=== PATIENT | female | born 1940 | race Hispanic/Latino ===

== ENCOUNTER 2018-03-19 17:22 | Inpatient (IN) | payer MEDICARE, OTHER ==
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
[2018-03-19 18:58] LABS: ALB/GLOB RATIO 1.4 (1.1-1.8); ALBUMIN 4.9 g/dL (3.0-4.8); ALT/SGPT 48 U/L (7-56); AST/SGOT 65 U/L (14-36); BLOOD UREA NITROGEN 28 mg/dL (7-21); CALCIUM 8.8 mg/dL (8.4-10.5); GFR NON-AFRICAN AMERICAN 36
[2018-03-19 19:02] LABS: ACETAMINOPHEN < 10.0 ug/ml (10.0-20.0); SALICYLATE 3 mg/dL (2.0-20.0)
[2018-03-19] MEDS ORDERED: Sodium Chloride 0.9% 500 ML IV STA (19:09)
[2018-03-19 19:19] LABS: BASO # 0.01 K/mm3 (0.0-2.0); BASO % 0.1 % (0.0-3.0); GRAN % 90.2 % (50.0-68.0); HEMOGLOBIN 12.2 g/dL (12.0-16.0); LYMPH # 1.1 (1.2-3.4); LYMPH % 7.8 % (22.0-35.0); MEAN CORPUSCULAR HEMOGLOBIN 26.9 pg (25.0-35.0); MEAN PLATELET VOLUME 9.8 fl (7.0-11.0); MONO # 0.3 (0.1-0.6); MONO % 1.9 % (1.0-6.0); PLATELET COUNT 339 10^3/uL (120.0-450.0); RBC 4.53 10^6/uL (3.5-6.1); RED CELL DISTRIBUTION WIDTH 16.7 % (11.5-14.5); WHITE BLOOD COUNT 14.4 10^3/uL (4.5-11.0)
[2018-03-19 19:27] LABS: ARTERIAL BLOOD GAS O2 SAT 97.8 % (95-98); ARTERIAL BLOOD GAS PCO2 23 mm/Hg (35-45); ARTERIAL BLOOD GAS TCO2 9.7 mmol.L (22-28)
[2018-03-19 19:38] LABS: TROPONIN I < 0.01 ng/mL
[2018-03-19] MEDS ORDERED: Sodium Chloride 0.9% 1,000 ML IV STA (19:38)
[2018-03-19 19:42] LABS: CK MB% 0.6 % (2.5-3.0); CK-MB 6.9 ng/mL (0.0-3.6)
[2018-03-19 21:03] LABS: BARBITURATES, UR NEGATIVE (NEGATIVE); BENZODIAZEPINES, UR NEGATIVE (NEGATIVE); OPIATES, UR NEGATIVE (NEGATIVE); PHENCYCLIDINE, UR NEGATIVE (NEGATIVE)
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
[2018-03-19 21:20] LABS: URINE BILIRUBIN MODERATE (NEGATIVE); URINE BLOOD LARGE (NEGATIVE); URINE GLUCOSE (UA) NEGATIVE (NEGATIVE); URINE LEUKOCYTE ESTERASE NEGATIVE Leu/uL (NEGATIVE); URINE PROTEIN 30 mg/dL (<30 mg/dL); URINE UROBILINOGEN 0.2 E.U./dL (<1 E.U./dL)
[2018-03-19 21:23] LABS: URINE APPEARANCE CLEAR (CLEAR); URINE COLOR YELLOW (YELLOW)
[2018-03-19 21:45] LABS: HDL CHOLESTEROL 45 mg/dL (29-60)
[2018-03-19 21:49] VITALS: BMI 22.8
[2018-03-19] MEDS ORDERED: cefTRIAXone 1 gm 1 GM/100 ML BAG IVPB STA (21:56)
[2018-03-19 21:57] LABS: LDL CHOLESTEROL 158 mg/dL (0-129)
[2018-03-19 22:17] LABS: URINE BACTERIA NEG (NEG); URINE EPITHELIAL CELLS 0 - 2 /hpf (0-5); URINE WBC 0 - 2 /hpf (0-6)
[2018-03-19 22:49] LABS: LYMPHOCYTE 13 % (22.0-35.0); MONOCYTE 1 % (1.0-6.0); NEUTROPHIL 86 % (50.0-70.0); PLATELET ESTIMATE NORMAL (NORMAL)
[2018-03-19] MEDS: Sodium Chloride 0.45% 1,000 ML IV SCH (22:49)
[2018-03-20 06:34] LABS: BASO # 0.01 K/mm3 (0.0-2.0); BASO % 0.1 % (0.0-3.0); EOS % 0.1 % (1.5-5.0); GRAN # 6.97 (1.4-6.5); GRAN % 68.6 % (50.0-68.0); HEMOGLOBIN 10.7 g/dL (12.0-16.0); LYMPH # 2.3 (1.2-3.4); LYMPH % 22.2 % (22.0-35.0); MEAN CORPUSCULAR HEMOGLOBIN 26.8 pg (25.0-35.0); MEAN CORPUSCULAR HGB CONC 31.1 g/dl (31.0-37.0); MEAN PLATELET VOLUME 9.4 fl (7.0-11.0); MONO # 0.9 (0.1-0.6); RED CELL DISTRIBUTION WIDTH 16.7 % (11.5-14.5)
[2018-03-20 07:03] LABS: WHITE BLOOD COUNT 10.2 10^3/uL (4.5-11.0)
[2018-03-20 07:26] LABS: ALB/GLOB RATIO 1.3 (1.1-1.8); ALBUMIN 3.8 g/dL (3.0-4.8); ALT/SGPT 42 U/L (7-56); AST/SGOT 51 U/L (14-36); BLOOD UREA NITROGEN 18 mg/dL (7-21); CALCIUM 7.8 mg/dL (8.4-10.5); GFR NON-AFRICAN AMERICAN > 60
[2018-03-20] MEDS ORDERED: Magnesium Sulfate 1 gm in D5W 1 GM/100 ML BAG IVPB ONE (07:39)
[2018-03-20] MEDS ORDERED: Potassium Phosphate 15 MMOLE in Dextrose 5% In Water 250 ML IVPB ONE (07:40)
[2018-03-20 08:31] LABS: FREE T4 1.12 ng/dL (0.78-2.19)
[2018-03-20 08:50] LABS: CK MB% 0.7 % (2.5-3.0); CK-MB 5.8 ng/mL (0.0-3.6)
--- NOTE | 2018-03-20 08:58 | CARD ---
APPROVED REPORT Date of service: 03/20/2018 EKG Measurement Heart [id number] <Conclusion> Normal sinus rhythm Nonspecific ST and T wave abnormality Prolonged QT Q in lll
[2018-03-20] MEDS: Sodium Chloride 0.45% 1,000 ML IV SCH ×2 (09:00→17:23)
--- NOTE | 2018-03-20 09:02 | CT ---
Date of service: 03/19/2018 PROCEDURE: CT HEAD WITHOUT CONTRAST. HISTORY: AMS COMPARISON: None available. TECHNIQUE: Axial computed tomography images were obtained through the head/brain without intravenous contrast. Radiation dose: Total exam DLP = 792.84 mGy-cm. This CT exam was performed using one or more of the following dose reduction techniques: Automated exposure control, adjustment of the mA and/or kV according to patient size, and/or use of iterative reconstruction technique. FINDINGS: HEMORRHAGE: No intracranial hemorrhage. BRAIN: No mass effect or edema. Mild chronic periventricular white matter ischemic disease. VENTRICLES: Unremarkable. No hydrocephalus. CALVARIUM: Unremarkable. PARANASAL SINUSES: Unremarkable as visualized. No significant inflammatory changes. MASTOID AIR CELLS: Unremarkable as visualized. No inflammatory changes. OTHER FINDINGS: None. IMPRESSION: No acute hemorrhage.
--- NOTE | 2018-03-20 09:18 | CARD ---
APPROVED REPORT Date of service: 03/19/2018 EKG Measurement Heart [id number] <Conclusion> Normal sinus rhythm Nonspecific ST and T wave abnormality Prolonged QT Electrical artifact present
--- NOTE | 2018-03-20 09:21 | RAD ---
Date of service: 03/19/2018 HISTORY: AMS COMPARISON: No prior. FINDINGS: LUNGS: No active pulmonary disease. PLEURA: No significant pleural effusion identified, no pneumothorax apparent. CARDIOVASCULAR: No aortic atherosclerotic calcification present. Normal cardiac size. No pulmonary vascular congestion. OSSEOUS STRUCTURES: No significant abnormalities. VISUALIZED UPPER ABDOMEN: Normal. OTHER FINDINGS: None. IMPRESSION: No active disease.
--- NOTE | 2018-03-20 13:20 | CP.PCM.PN ---
<Johnson Angelo - Last Filed: 03/20/18 13:16> Subjective - Date & Time of Evaluation Date of Evaluation: 03/20/18 Time of Evaluation: 08:10 - Subjective Subjective: Johnson Angelo PGY-1 Progress Note for Hospitalist Service Patient seen and evaluated at bedside. Improved mentation and conversation, although patient seems confused at times. No acute events reported overnight. Currently reports no complaints, and denies chest pain, palpitations, shortness of breath, blurry vision and headaches, abdominal pain, nausea vomiting and diarrhea. Objective - Vital Signs/Intake and Output Vital Signs (last 24 hours): Temp Pulse Resp BP Pulse Ox 98.6 F 86 20 163/65 H 94 L 03/20/18 05:38 03/20/18 09:00 03/20/18 09:00 03/20/18 09:00 03/20/18 09:00 Intake and Output: 03/20/18 03/20/18 06:59 18:59 Intake Total 1000 Output Total 400 Balance 600 - Medications Medications: Current Medications Sodium Chloride (Sodium Chloride 0.45%) 1,000 mls @ 100 mls/hr IV .Q10H MITCH Last Admin: 03/20/18 09:00 Dose: 100 mls/hr Potassium Phosphate 15 mmole/ (Dextrose) 255 mls @ 42.5 mls/hr IVPB ONCE ONE Stop: 03/20/18 13:39 Last Admin: 03/20/18 08:48 Dose: 42.5 mls/hr - Labs Labs: 03/20/18 05:30 03/20/18 05:30 - Additional Findings Additional findings: - Constitutional Appears: No Acute Distress - Eye Exam Eye Exam: EOMI, PERRLA - ENT Exam ENT Exam: Mucous Membranes Dry - Neck Exam Neck Exam: Full ROM, non-tender to touch - Respiratory Exam Respiratory Exam: Clear to Auscultation Bilateral, NORMAL BREATHING PATTERN - Cardiovascular Exam Cardiovascular Exam: REGULAR RHYTHM, resolving tachycardia +S1, +S2, no murmurs, no rubs, no gallops - GI/Abdominal Exam GI & Abdominal Exam: Soft, Normal Bowel Sounds. absent: Tenderness - Extremities Exam Extremities Exam: no clubbing, no cyanosis, no edema - Neurological Exam Neurological Exam: Alert, Awake, orientated x 3, responds to verbal stimuli, occasionally answers appropriately - Psychiatric Exam Psychiatric exam: Normal Affect, Normal Mood - Skin Skin Exam: numerous seborrheic keratosis lesions on back Assessment and Plan - Assessment and Plan (Free Text) Assessment: Patient is a 77 year old female with a past medical history of HTN and CVA (2.5 years ago per patient) who was admitted for evaluation and treatment of altered mental status. Confusion - 03/19/2018 CT head without contrast- 1. There is generalized parenchymal atrophy noted as demonstrated by symmetrical dilatation of ventricles and sulci. 2. 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 3. No acute intracranial pathology. - 03/19/2018 EKG Normal sinus rhythm normal axis QTc [address] elevations - likely secondary to uremia 2/2 pre-renal jose 2/2 dehydration - UA negative for UTI, no symptoms currently - UDS, salicylates, ETOH and Acetaminophen- reviewed and negative - has hx of CVA, patient claims not be on aspirin and/or statin. Recs appreciated per nephro/neuro regarding beginning/continuing statin/ASA - TSH 0.29 and 0.16. F/u free T3 and T4 - neuro consulted- appreciate recommendations Anion Gap Metabolic Acidosis- closed - AGMA with AG~ 26 likely secondary to uremia 2/2 pre-renal jose 2/2 dehydration, resolved with gap 13 - bicarb 100mEq/1000 cc half NS followed by half normal NS @ 100cc/hr JOES - pre-renal in nature likely 2/2 dehydration - continue with aforementioned IVF therapy - nephrology consulted- appreciate recommendations Rhabdomyolysis - continue with half normal NS @ 100cc/hr - Total CK 803 HX of CVA - patient denies focal deficits - does not know if she is on aspirin or statin - neuro consulted- appreciate recs Leukocytosis- resolved - UA and CXR- no signs of infection - likely reactive in nature - monitor with labs Prolonged QTc - avoid qtc prolonging agents Hx of HTN - unable to confirm medications with pharmacy - last BP 148/63 - continue to monitor Prophylaxis - DVT ppx- scds - GI ppx- famotidine Dispo: Patient states she utilizes [facility] but upon calling, pharmacist does not have patient on file. No family number or contact info on file. Call made to PMD Dr. Schulte to confirm meds. Pending PT eval Patient seen, case reviewed and plan approved by Dr. Pierre. Johnson Angelo, PGY-1 <Thiago Pierre - Last Filed: 03/20/18 17:18> Objective - Vital Signs/Intake and Output Vital Signs (last 24 hours): Temp Pulse Resp BP Pulse Ox 98.6 F 86 20 163/65 H 94 L 03/20/18 05:38 03/20/18 09:00 03/20/18 09:00 03/20/18 09:00 03/20/18 09:00 Intake and Output: 03/20/18 03/20/18 06:59 18:59 Intake Total 1000 Output Total 400 Balance 600 - Medications Medications: Current Medications Sodium Chloride (Sodium Chloride 0.45%) 1,000 mls @ 100 mls/hr IV .Q10H MITCH Last Admin: 03/20/18 09:00 Dose: 100 mls/hr - Labs Labs: 03/20/18 05:30 03/20/18 05:30 Attending/Attestation - Attestation I have personally seen and examined this patient.: Yes I have fully participated in the care of the patient.: Yes I have reviewed all pertinent clinical information, including history, physical exam and plan: Yes Notes (Text): 03/20/18 17:14 77 year old female with past medical history of hypertension and CVA who presented with altered mental status. She was found to have JOSE, metabolic acidosis and rhabdomyolysis and started on ivf and bicarb. JOSE resolved and CPK/AG are improved. Nephrology evaluation was requested. CT head was negative for acute findings and UA not suggestive of UTI. Neurology evaluation was appreciated; recommended consider MRI if no improvement of mental status. PT evaluation is requested. Mental status is better today but will need to discuss with her family what is her baseline. Thiago Pierre MD Hospitalist.
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
--- NOTE | 2018-03-20 15:42 | CP.CCUPN ---
<Darnell Mendez - Last Filed: 03/20/18 15:49> CCU Subjective - Physician Review Subjective (Free Text): Darnell Mendez DO,PGY1. ICU progress note for Dr Mccord Patient seen and examined at bedside. She is awake oriented and talking in full sentences. No acute events overnight. She denied chest pain, fever, chills, palpitations CCU Objective - Vital Signs / Intake & Output Intake and Output (Last 8hrs): Intake & Output 03/20/18 03/20/18 03/20/18 06:59 14:59 22:59 Intake Total 1000 Output Total 400 Balance 600 Weight 137 lb Intake: IV 1000 Right Forearm 1000 Output: Urine 400 Urine, Voided 400 Stool 0 - Physical Exam Head: Positive for: Atraumatic, Normocephalic Pupils: Positive for: PERRL Extroacular Muscles: Positive for: EOMI Conjunctiva: Positive for: Normal Ears: Positive for: Normal Mouth: Positive for: Moist Mucous Membranes Pharnyx: Positive for: Normal Nose (External): Positive for: Atraumatic Nose (Internal): Positive for: Normal Inspection Neck: Positive for: Normal Range of Motion Respiratory/Chest: Positive for: Clear to Auscultation, Good Air Exchange. Negative for: Respiratory Distress, Accessory Muscle Use Cardiovascular: Positive for: Regular Rate and Rhythm, Normal S1, S2. Negative for: Murmurs Abdomen: Negative for: Tenderness, Distention, Rebound, Guarding Back: Positive for: Normal Inspection Upper Extremity: Positive for: Normal Inspection. Negative for: Cyanosis, Edema Lower Extremity: Positive for: Normal Inspection. Negative for: Edema Neurological: Positive for: GCS=15, Speech Normal Skin: Positive for: Warm, Dry, Normal Color. Negative for: Rashes Psychiatric: Positive for: Alert, Oriented x 3 - Medications Active Medications: Active Medications Generic Name Dose Route Start Last Admin Trade Name Freq PRN Reason Stop Dose Admin Sodium Chloride 1,000 mls @ 100 mls/hr 03/19/18 22:00 03/20/18 09:00 Sodium Chloride 0.45% IV 100 mls/hr .Q10H MITCH Administration - Patient Studies Lab Studies: Lab Studies 03/20/18 03/20/18 03/20/18 Range/Units 08:00 05:30 05:30 WBC 10.2 D (4.5-11.0) 10^3/uL RBC 4.00 (3.5-6.1) 10^6/uL Hgb 10.7 L (12.0-16.0) g/dL Hct 34.4 L (36.0-48.0) % MCV 86.0 (80.0-105.0) fl MCH 26.8 (25.0-35.0) pg MCHC 31.1 (31.0-37.0) g/dl RDW 16.7 H (11.5-14.5) % Plt Count 284 (120.0-450.0) 10^3/uL MPV 9.4 (7.0-11.0) fl Gran % 68.6 H (50.0-68.0) % Lymph % (Auto) 22.2 (22.0-35.0) % Bowie % (Auto) 9.0 H (1.0-6.0) % Eos % (Auto) 0.1 L (1.5-5.0) % Baso % (Auto) 0.1 (0.0-3.0) % Gran # 6.97 H (1.4-6.5) Lymph # (Auto) 2.3 (1.2-3.4) Bowie # (Auto) 0.9 H (0.1-0.6) Eos # (Auto) 0.0 (0.0-0.7) Baso # (Auto) 0.01 (0.0-2.0) K/mm3 Neutrophils % (Manual) (50.0-70.0) % Lymphocytes % (Manual) (22.0-35.0) % Monocytes % (Manual) (1.0-6.0) % Platelet Evaluation (NORMAL) pCO2 (35-45) mm/Hg pO2 (80-100) mm/Hg HCO3 (21-28) mmol/L ABG pH (7.35-7.45) ABG Total CO2 (22-28) mmol.L ABG O2 Saturation (95-98) % ABG Base Excess (-2.0-3.0) mmol/L ABG Potassium (3.6-5.2) mmol/L Glucose (65-105) mg/dl Lactate (0.7-2.1) mmol/L FiO2 % Sodium 139 (132-148) mmol/L Potassium 3.3 L (3.6-5.0) mmol/L Chloride 111 H (98-107) mmol/L Carbon Dioxide 16 L (21-33) mmol/L Anion Gap 16 (10-20) BUN 18 (7-21) mg/dL Creatinine 0.9 (0.7-1.2) mg/dl Est GFR ( Amer) > 60 Est GFR (Non-Af Amer) > 60 POC Glucose (mg/dL) (65-110) mg/dL Random Glucose 85 (70-110) mg/dL Hemoglobin A1c (4.2-6.5) % Calcium 7.8 L (8.4-10.5) mg/dL Phosphorus 2.3 L (2.5-4.5) mg/dL Magnesium 2.0 (1.7-2.2) mg/dL Total Bilirubin 0.4 (0.2-1.3) mg/dL AST 51 H D (14-36) U/L ALT 42 (7-56) U/L Alkaline Phosphatase 123 (38-126) U/L Lactate Dehydrogenase (333-699) U/L Total Creatine Kinase 803 H (35-230) U/L CK-MB (CK-2) 5.8 H (0.0-3.6) ng/mL CK-MB (CK-2) % 0.7 L (2.5-3.0) % Troponin I ng/mL Total Protein 6.8 (5.8-8.3) g/dL Albumin 3.8 (3.0-4.8) g/dL Globulin 3.0 gm/dL Albumin/Globulin Ratio 1.3 (1.1-1.8) Triglycerides (35-160) mg/dL Cholesterol (130-200) mg/dL LDL Cholesterol Direct (0-129) mg/dL HDL Cholesterol (29-60) mg/dL Free T4 1.12 (0.78-2.19) ng/dL TSH 3rd Generation 0.16 L (0.46-4.68) mIU/mL Arterial Blood Potassium (3.6-5.2) mmol/L Urine Color (YELLOW) Urine Appearance (CLEAR) Urine pH (4.7-8.0) Ur Specific Provencal (1.005-1.035) Urine Protein (<30 mg/dL) mg/dL Urine Glucose (UA) (NEGATIVE) mg/dL Urine Ketones (NEGATIVE) mg/dL Urine Blood (NEGATIVE) Urine Nitrate (NEGATIVE) Urine Bilirubin (NEGATIVE) Urine Urobilinogen (<1 E.U./dL) E.U./dL Ur Leukocyte Esterase (NEGATIVE) Kary/uL Urine RBC (0-2) /hpf Urine WBC (0-6) /hpf Ur Epithelial Cells (0-5) /hpf Urine Bacteria (NEG) Salicylates (2.0-20.0) mg/dL Urine Opiates Screen (NEGATIVE) Urine Methadone Screen (NEGATIVE) Acetaminophen (10.0-20.0) ug/ml Ur Barbiturates Screen (NEGATIVE) Ur Phencyclidine Scrn (NEGATIVE) Ur Amphetamines Screen (NEGATIVE) U Benzodiazepines Scrn (NEGATIVE) U Oth Cocaine Metabols (NEGATIVE) U Cannabinoids Screen (NEGATIVE) Alcohol, Quantitative (0-10) mg/dL 03/20/18 03/19/18 03/19/18 Range/Units 02:40 20:39 20:39 WBC (4.5-11.0) 10^3/uL RBC (3.5-6.1) 10^6/uL Hgb (12.0-16.0) g/dL Hct (36.0-48.0) % MCV (80.0-105.0) fl MCH (25.0-35.0) pg MCHC (31.0-37.0) g/dl RDW (11.5-14.5) % Plt Count (120.0-450.0) 10^3/uL MPV (7.0-11.0) fl Gran % (50.0-68.0) % Lymph % (Auto) (22.0-35.0) % Bowie % (Auto) (1.0-6.0) % Eos % (Auto) (1.5-5.0) % Baso % (Auto) (0.0-3.0) % Gran # (1.4-6.5) Lymph # (Auto) (1.2-3.4) Bowie # (Auto) (0.1-0.6) Eos # (Auto) (0.0-0.7) Baso # (Auto) (0.0-2.0) K/mm3 Neutrophils % (Manual) (50.0-70.0) % Lymphocytes % (Manual) (22.0-35.0) % Monocytes % (Manual) (1.0-6.0) % Platelet Evaluation (NORMAL) pCO2 (35-45) mm/Hg pO2 (80-100) mm/Hg HCO3 (21-28) mmol/L ABG pH (7.35-7.45) ABG Total CO2 (22-28) mmol.L ABG O2 Saturation (95-98) % ABG Base Excess (-2.0-3.0) mmol/L ABG Potassium (3.6-5.2) mmol/L Glucose (65-105) mg/dl Lactate (0.7-2.1) mmol/L FiO2 % Sodium (132-148) mmol/L Potassium (3.6-5.0) mmol/L Chloride (98-107) mmol/L Carbon Dioxide (21-33) mmol/L Anion Gap (10-20) BUN (7-21) mg/dL Creatinine (0.7-1.2) mg/dl Est GFR ( Amer) Est GFR (Non-Af Amer) POC Glucose (mg/dL) (65-110) mg/dL Random Glucose (70-110) mg/dL Hemoglobin A1c (4.2-6.5) % Calcium (8.4-10.5) mg/dL Phosphorus (2.5-4.5) mg/dL Magnesium (1.7-2.2) mg/dL Total Bilirubin (0.2-1.3) mg/dL AST (14-36) U/L ALT (7-56) U/L Alkaline Phosphatase (38-126) U/L Lactate Dehydrogenase (333-699) U/L Total Creatine Kinase (35-230) U/L CK-MB (CK-2) (0.0-3.6) ng/mL CK-MB (CK-2) % (2.5-3.0) % Troponin I 0.02 D ng/mL Total Protein (5.8-8.3) g/dL Albumin (3.0-4.8) g/dL Globulin gm/dL Albumin/Globulin Ratio (1.1-1.8) Triglycerides (35-160) mg/dL Cholesterol (130-200) mg/dL LDL Cholesterol Direct (0-129) mg/dL HDL Cholesterol (29-60) mg/dL Free T4 (0.78-2.19) ng/dL TSH 3rd Generation (0.46-4.68) mIU/mL Arterial Blood Potassium (3.6-5.2) mmol/L Urine Color Yellow (YELLOW) Urine Appearance Clear (CLEAR) Urine pH 6.0 (4.7-8.0) Ur Specific Provencal >= 1.030 (1.005-1.035) Urine Protein 30 H (<30 mg/dL) mg/dL Urine Glucose (UA) Negative (NEGATIVE) mg/dL Urine Ketones >=80 (NEGATIVE) mg/dL Urine Blood Large H (NEGATIVE) Urine Nitrate Negative (NEGATIVE) Urine Bilirubin Moderate H (NEGATIVE) Urine Urobilinogen 0.2 (<1 E.U./dL) E.U./dL Ur Leukocyte Esterase Negative (NEGATIVE) Kary/uL Urine RBC 10 - 15 (0-2) /hpf Urine WBC 0 - 2 (0-6) /hpf Ur Epithelial Cells 0 - 2 (0-5) /hpf Urine Bacteria Neg (NEG) Salicylates (2.0-20.0) mg/dL Urine Opiates Screen Negative (NEGATIVE) Urine Methadone Screen Negative (NEGATIVE) Acetaminophen (10.0-20.0) ug/ml Ur Barbiturates Screen Negative (NEGATIVE) Ur Phencyclidine Scrn Negative (NEGATIVE) Ur Amphetamines Screen Negative (NEGATIVE) U Benzodiazepines Scrn Negative (NEGATIVE) U Oth Cocaine Metabols Negative (NEGATIVE) U Cannabinoids Screen Negative (NEGATIVE) Alcohol, Quantitative (0-10) mg/dL 03/19/18 03/19/18 03/19/18 Range/Units 19:24 19:00 19:00 WBC (4.5-11.0) 10^3/uL RBC (3.5-6.1) 10^6/uL Hgb (12.0-16.0) g/dL Hct (36.0-48.0) % MCV (80.0-105.0) fl MCH (25.0-35.0) pg MCHC (31.0-37.0) g/dl RDW (11.5-14.5) % Plt Count (120.0-450.0) 10^3/uL MPV (7.0-11.0) fl Gran % (50.0-68.0) % Lymph % (Auto) (22.0-35.0) % Bowie % (Auto) (1.0-6.0) % Eos % (Auto) (1.5-5.0) % Baso % (Auto) (0.0-3.0) % Gran # (1.4-6.5) Lymph # (Auto) (1.2-3.4) Bowie # (Auto) (0.1-0.6) Eos # (Auto) (0.0-0.7) Baso # (Auto) (0.0-2.0) K/mm3 Neutrophils % (Manual) (50.0-70.0) % Lymphocytes % (Manual) (22.0-35.0) % Monocytes % (Manual) (1.0-6.0) % Platelet Evaluation (NORMAL) pCO2 23 L (35-45) mm/Hg pO2 95.0 (80-100) mm/Hg HCO3 9.0 L* (21-28) mmol/L ABG pH 7.20 L (7.35-7.45) ABG Total CO2 9.7 L (22-28) mmol.L ABG O2 Saturation 97.8 (95-98) % ABG Base Excess -17.2 L (-2.0-3.0) mmol/L ABG Potassium 3.2 L (3.6-5.2) mmol/L Glucose 85 (65-105) mg/dl Lactate 0.7 (0.7-2.1) mmol/L FiO2 21.0 % Sodium 140.0 (132-148) mmol/L Potassium (3.6-5.0) mmol/L Chloride 104.0 (98-107) mmol/L Carbon Dioxide (21-33) mmol/L Anion Gap (10-20) BUN (7-21) mg/dL Creatinine (0.7-1.2) mg/dl Est GFR ( Amer) Est GFR (Non-Af Amer) POC Glucose (mg/dL) (65-110) mg/dL Random Glucose (70-110) mg/dL Hemoglobin A1c 5.8 (4.2-6.5) % Calcium (8.4-10.5) mg/dL Phosphorus (2.5-4.5) mg/dL Magnesium (1.7-2.2) mg/dL Total Bilirubin (0.2-1.3) mg/dL AST (14-36) U/L ALT (7-56) U/L Alkaline Phosphatase (38-126) U/L Lactate Dehydrogenase (333-699) U/L Total Creatine Kinase (35-230) U/L CK-MB (CK-2) (0.0-3.6) ng/mL CK-MB (CK-2) % (2.5-3.0) % Troponin I ng/mL Total Protein (5.8-8.3) g/dL Albumin (3.0-4.8) g/dL Globulin gm/dL Albumin/Globulin Ratio (1.1-1.8) Triglycerides (35-160) mg/dL Cholesterol (130-200) mg/dL LDL Cholesterol Direct (0-129) mg/dL HDL Cholesterol (29-60) mg/dL Free T4 (0.78-2.19) ng/dL TSH 3rd Generation 0.29 L (0.46-4.68) mIU/mL Arterial Blood Potassium 3.2 L (3.6-5.2) mmol/L Urine Color (YELLOW) Urine Appearance (CLEAR) Urine pH (4.7-8.0) Ur Specific Provencal (1.005-1.035) Urine Protein (<30 mg/dL) mg/dL Urine Glucose (UA) (NEGATIVE) mg/dL Urine Ketones (NEGATIVE) mg/dL Urine Blood (NEGATIVE) Urine Nitrate (NEGATIVE) Urine Bilirubin (NEGATIVE) Urine Urobilinogen (<1 E.U./dL) E.U./dL Ur Leukocyte Esterase (NEGATIVE) Kary/uL Urine RBC (0-2) /hpf Urine WBC (0-6) /hpf Ur Epithelial Cells (0-5) /hpf Urine Bacteria (NEG) Salicylates (2.0-20.0) mg/dL Urine Opiates Screen (NEGATIVE) Urine Methadone Screen (NEGATIVE) Acetaminophen (10.0-20.0) ug/ml Ur Barbiturates Screen (NEGATIVE) Ur Phencyclidine Scrn (NEGATIVE) Ur Amphetamines Screen (NEGATIVE) U Benzodiazepines Scrn (NEGATIVE) U Oth Cocaine Metabols (NEGATIVE) U Cannabinoids Screen (NEGATIVE) Alcohol, Quantitative (0-10) mg/dL 03/19/18 03/19/18 03/19/18 Range/Units 19:00 18:42 18:42 WBC 14.4 H (4.5-11.0) 10^3/uL RBC 4.53 (3.5-6.1) 10^6/uL Hgb 12.2 (12.0-16.0) g/dL Hct 39.4 (36.0-48.0) % MCV 87.0 (80.0-105.0) fl MCH 26.9 (25.0-35.0) pg MCHC 31.0 (31.0-37.0) g/dl RDW 16.7 H (11.5-14.5) % Plt Count 339 (120.0-450.0) 10^3/uL MPV 9.8 (7.0-11.0) fl Gran % 90.2 H (50.0-68.0) % Lymph % (Auto) 7.8 L (22.0-35.0) % Bowie % (Auto) 1.9 (1.0-6.0) % Eos % (Auto) 0.0 L (1.5-5.0) % Baso % (Auto) 0.1 (0.0-3.0) % Gran # 13.00 H (1.4-6.5) Lymph # (Auto) 1.1 L (1.2-3.4) Bowie # (Auto) 0.3 (0.1-0.6) Eos # (Auto) 0.0 (0.0-0.7) Baso # (Auto) 0.01 (0.0-2.0) K/mm3 Neutrophils % (Manual) 86 H (50.0-70.0) % Lymphocytes % (Manual) 13 L (22.0-35.0) % Monocytes % (Manual) 1 (1.0-6.0) % Platelet Evaluation Normal (NORMAL) pCO2 (35-45) mm/Hg pO2 (80-100) mm/Hg HCO3 (21-28) mmol/L ABG pH (7.35-7.45) ABG Total CO2 (22-28) mmol.L ABG O2 Saturation (95-98) % ABG Base Excess (-2.0-3.0) mmol/L ABG Potassium (3.6-5.2) mmol/L Glucose (65-105) mg/dl Lactate (0.7-2.1) mmol/L FiO2 % Sodium (132-148) mmol/L Potassium (3.6-5.0) mmol/L Chloride (98-107) mmol/L Carbon Dioxide (21-33) mmol/L Anion Gap (10-20) BUN (7-21) mg/dL Creatinine (0.7-1.2) mg/dl Est GFR ( Amer) Est GFR (Non-Af Amer) POC Glucose (mg/dL) (65-110) mg/dL Random Glucose (70-110) mg/dL Hemoglobin A1c (4.2-6.5) % Calcium (8.4-10.5) mg/dL Phosphorus (2.5-4.5) mg/dL Magnesium (1.7-2.2) mg/dL Total Bilirubin (0.2-1.3) mg/dL AST (14-36) U/L ALT (7-56) U/L Alkaline Phosphatase (38-126) U/L Lactate Dehydrogenase (333-699) U/L Total Creatine Kinase (35-230) U/L CK-MB (CK-2) (0.0-3.6) ng/mL CK-MB (CK-2) % (2.5-3.0) % Troponin I ng/mL Total Protein (5.8-8.3) g/dL Albumin (3.0-4.8) g/dL Globulin gm/dL Albumin/Globulin Ratio (1.1-1.8) Triglycerides 204 H (35-160) mg/dL Cholesterol 241 H (130-200) mg/dL LDL Cholesterol Direct 158 H (0-129) mg/dL HDL Cholesterol 45 (29-60) mg/dL Free T4 (0.78-2.19) ng/dL TSH 3rd Generation (0.46-4.68) mIU/mL Arterial Blood Potassium (3.6-5.2) mmol/L Urine Color (YELLOW) Urine Appearance (CLEAR) Urine pH (4.7-8.0) Ur Specific Provencal (1.005-1.035) Urine Protein (<30 mg/dL) mg/dL Urine Glucose (UA) (NEGATIVE) mg/dL Urine Ketones (NEGATIVE) mg/dL Urine Blood (NEGATIVE) Urine Nitrate (NEGATIVE) Urine Bilirubin (NEGATIVE) Urine Urobilinogen (<1 E.U./dL) E.U./dL Ur Leukocyte Esterase (NEGATIVE) Kary/uL Urine RBC (0-2) /hpf Urine WBC (0-6) /hpf Ur Epithelial Cells (0-5) /hpf Urine Bacteria (NEG) Salicylates (2.0-20.0) mg/dL Urine Opiates Screen (NEGATIVE) Urine Methadone Screen (NEGATIVE) Acetaminophen (10.0-20.0) ug/ml Ur Barbiturates Screen (NEGATIVE) Ur Phencyclidine Scrn (NEGATIVE) Ur Amphetamines Screen (NEGATIVE) U Benzodiazepines Scrn (NEGATIVE) U Oth Cocaine Metabols (NEGATIVE) U Cannabinoids Screen (NEGATIVE) Alcohol, Quantitative < 10 (0-10) mg/dL 03/19/18 03/19/18 03/19/18 Range/Units 18:42 18:42 17:28 WBC (4.5-11.0) 10^3/uL RBC (3.5-6.1) 10^6/uL Hgb (12.0-16.0) g/dL Hct (36.0-48.0) % MCV (80.0-105.0) fl MCH (25.0-35.0) pg MCHC (31.0-37.0) g/dl RDW (11.5-14.5) % Plt Count (120.0-450.0) 10^3/uL MPV (7.0-11.0) fl Gran % (50.0-68.0) % Lymph % (Auto) (22.0-35.0) % Bowie % (Auto) (1.0-6.0) % Eos % (Auto) (1.5-5.0) % Baso % (Auto) (0.0-3.0) % Gran # (1.4-6.5) Lymph # (Auto) (1.2-3.4) Bowie # (Auto) (0.1-0.6) Eos # (Auto) (0.0-0.7) Baso # (Auto) (0.0-2.0) K/mm3 Neutrophils % (Manual) (50.0-70.0) % Lymphocytes % (Manual) (22.0-35.0) % Monocytes % (Manual) (1.0-6.0) % Platelet Evaluation (NORMAL) pCO2 (35-45) mm/Hg pO2 (80-100) mm/Hg HCO3 (21-28) mmol/L ABG pH (7.35-7.45) ABG Total CO2 (22-28) mmol.L ABG O2 Saturation (95-98) % ABG Base Excess (-2.0-3.0) mmol/L ABG Potassium (3.6-5.2) mmol/L Glucose (65-105) mg/dl Lactate (0.7-2.1) mmol/L FiO2 % Sodium 140 (132-148) mmol/L Potassium 3.7 (3.6-5.0) mmol/L Chloride 104 (98-107) mmol/L Carbon Dioxide 10 L (21-33) mmol/L Anion Gap 30 H (10-20) BUN 28 H (7-21) mg/dL Creatinine 1.4 H (0.7-1.2) mg/dl Est GFR ( Amer) 44 Est GFR (Non-Af Amer) 36 POC Glucose (mg/dL) 86 (65-110) mg/dL Random Glucose 95 (70-110) mg/dL Hemoglobin A1c (4.2-6.5) % Calcium 8.8 (8.4-10.5) mg/dL Phosphorus (2.5-4.5) mg/dL Magnesium (1.7-2.2) mg/dL Total Bilirubin 0.5 (0.2-1.3) mg/dL AST 65 H (14-36) U/L ALT 48 (7-56) U/L Alkaline Phosphatase 161 H (38-126) U/L Lactate Dehydrogenase 705 H (333-699) U/L Total Creatine Kinase 1110 H (35-230) U/L CK-MB (CK-2) 6.9 H (0.0-3.6) ng/mL CK-MB (CK-2) % 0.6 L (2.5-3.0) % Troponin I < 0.01 ng/mL Total Protein 8.4 H (5.8-8.3) g/dL Albumin 4.9 H (3.0-4.8) g/dL Globulin 3.5 gm/dL Albumin/Globulin Ratio 1.4 (1.1-1.8) Triglycerides (35-160) mg/dL Cholesterol (130-200) mg/dL LDL Cholesterol Direct (0-129) mg/dL HDL Cholesterol (29-60) mg/dL Free T4 (0.78-2.19) ng/dL TSH 3rd Generation (0.46-4.68) mIU/mL Arterial Blood Potassium (3.6-5.2) mmol/L Urine Color (YELLOW) Urine Appearance (CLEAR) Urine pH (4.7-8.0) Ur Specific Provencal (1.005-1.035) Urine Protein (<30 mg/dL) mg/dL Urine Glucose (UA) (NEGATIVE) mg/dL Urine Ketones (NEGATIVE) mg/dL Urine Blood (NEGATIVE) Urine Nitrate (NEGATIVE) Urine Bilirubin (NEGATIVE) Urine Urobilinogen (<1 E.U./dL) E.U./dL Ur Leukocyte Esterase (NEGATIVE) Kary/uL Urine RBC (0-2) /hpf Urine WBC (0-6) /hpf Ur Epithelial Cells (0-5) /hpf Urine Bacteria (NEG) Salicylates 3 (2.0-20.0) mg/dL Urine Opiates Screen (NEGATIVE) Urine Methadone Screen (NEGATIVE) Acetaminophen < 10.0 L (10.0-20.0) ug/ml Ur Barbiturates Screen (NEGATIVE) Ur Phencyclidine Scrn (NEGATIVE) Ur Amphetamines Screen (NEGATIVE) U Benzodiazepines Scrn (NEGATIVE) U Oth Cocaine Metabols (NEGATIVE) U Cannabinoids Screen (NEGATIVE) Alcohol, Quantitative (0-10) mg/dL Laboratory Results - last 24 hr 03/19/18 03/19/18 03/19/18 17:28 18:42 18:42 WBC RBC Hgb Hct MCV MCH MCHC RDW Plt Count MPV Gran % Lymph % (Auto) Bowie % (Auto) Eos % (Auto) Baso % (Auto) Gran # Lymph # (Auto) Bowie # (Auto) Eos # (Auto) Baso # (Auto) Neutrophils % (Manual) Lymphocytes % (Manual) Monocytes % (Manual) Platelet Evaluation pCO2 pO2 HCO3 ABG pH ABG Total CO2 ABG O2 Saturation ABG Base Excess ABG Potassium Glucose Lactate FiO2 Sodium 140 Potassium 3.7 Chloride 104 Carbon Dioxide 10 L Anion Gap 30 H BUN 28 H Creatinine 1.4 H Est GFR ( Amer) 44 Est GFR (Non-Af Amer) 36 POC Glucose (mg/dL) 86 Random Glucose 95 Hemoglobin A1c Calcium 8.8 Phosphorus Magnesium Total Bilirubin 0.5 AST 65 H ALT 48 Alkaline Phosphatase 161 H Lactate Dehydrogenase 705 H Total Creatine Kinase 1110 H CK-MB (CK-2) 6.9 H CK-MB (CK-2) % 0.6 L Troponin I < 0.01 Total Protein 8.4 H Albumin 4.9 H Globulin 3.5 Albumin/Globulin Ratio 1.4 Triglycerides Cholesterol LDL Cholesterol Direct HDL Cholesterol Free T4 TSH 3rd Generation Arterial Blood Potassium Urine Color Urine Appearance Urine pH Ur Specific Provencal Urine Protein Urine Glucose (UA) Urine Ketones Urine Blood Urine Nitrate Urine Bilirubin Urine Urobilinogen Ur Leukocyte Esterase Urine RBC Urine WBC Ur Epithelial Cells Urine Bacteria Salicylates 3 Urine Opiates Screen Urine Methadone Screen Acetaminophen < 10.0 L Ur Barbiturates Screen Ur Phencyclidine Scrn Ur Amphetamines Screen U Benzodiazepines Scrn U Oth Cocaine Metabols U Cannabinoids Screen Alcohol, Quantitative 03/19/18 03/19/18 03/19/18 18:42 18:42 19:00 WBC 14.4 H RBC 4.53 Hgb 12.2 Hct 39.4 MCV 87.0 MCH 26.9 MCHC 31.0 RDW 16.7 H Plt Count 339 MPV 9.8 Gran % 90.2 H Lymph % (Auto) 7.8 L Bowie % (Auto) 1.9 Eos % (Auto) 0.0 L Baso % (Auto) 0.1 Gran # 13.00 H Lymph # (Auto) 1.1 L Bowie # (Auto) 0.3 Eos # (Auto) 0.0 Baso # (Auto) 0.01 Neutrophils % (Manual) 86 H Lymphocytes % (Manual) 13 L Monocytes % (Manual) 1 Platelet Evaluation Normal pCO2 pO2 HCO3 ABG pH ABG Total CO2 ABG O2 Saturation ABG Base Excess ABG Potassium Glucose Lactate FiO2 Sodium Potassium Chloride Carbon Dioxide Anion Gap BUN Creatinine Est GFR ( Amer) Est GFR (Non-Af Amer) POC Glucose (mg/dL) Random Glucose Hemoglobin A1c Calcium Phosphorus Magnesium Total Bilirubin AST ALT Alkaline Phosphatase Lactate Dehydrogenase Total Creatine Kinase CK-MB (CK-2) CK-MB (CK-2) % Troponin I Total Protein Albumin Globulin Albumin/Globulin Ratio Triglycerides 204 H Cholesterol 241 H LDL Cholesterol Direct 158 H HDL Cholesterol 45 Free T4 TSH 3rd Generation Arterial Blood Potassium Urine Color Urine Appearance Urine pH Ur Specific Provencal Urine Protein Urine Glucose (UA) Urine Ketones Urine Blood Urine Nitrate Urine Bilirubin Urine Urobilinogen Ur Leukocyte Esterase Urine RBC Urine WBC Ur Epithelial Cells Urine Bacteria Salicylates Urine Opiates Screen Urine Methadone Screen Acetaminophen Ur Barbiturates Screen Ur Phencyclidine Scrn Ur Amphetamines Screen U Benzodiazepines Scrn U Oth Cocaine Metabols U Cannabinoids Screen Alcohol, Quantitative < 10 03/19/18 03/19/18 03/19/18 19:00 19:00 19:24 WBC RBC Hgb Hct MCV MCH MCHC RDW Plt Count MPV Gran % Lymph % (Auto) Bowie % (Auto) Eos % (Auto) Baso % (Auto) Gran # Lymph # (Auto) Bowie # (Auto) Eos # (Auto) Baso # (Auto) Neutrophils % (Manual) Lymphocytes % (Manual) Monocytes % (Manual) Platelet Evaluation pCO2 23 L pO2 95.0 HCO3 9.0 L* ABG pH 7.20 L ABG Total CO2 9.7 L ABG O2 Saturation 97.8 ABG Base Excess -17.2 L ABG Potassium 3.2 L Glucose 85 Lactate 0.7 FiO2 21.0 Sodium 140.0 Potassium Chloride 104.0 Carbon Dioxide Anion Gap BUN Creatinine Est GFR ( Amer) Est GFR (Non-Af Amer) POC Glucose (mg/dL) Random Glucose Hemoglobin A1c 5.8 Calcium Phosphorus Magnesium Total Bilirubin AST ALT Alkaline Phosphatase Lactate Dehydrogenase Total Creatine Kinase CK-MB (CK-2) CK-MB (CK-2) % Troponin I Total Protein Albumin Globulin Albumin/Globulin Ratio Triglycerides Cholesterol LDL Cholesterol Direct HDL Cholesterol Free T4 TSH 3rd Generation 0.29 L Arterial Blood Potassium 3.2 L Urine Color Urine Appearance Urine pH Ur Specific Provencal Urine Protein Urine Glucose (UA) Urine Ketones Urine Blood Urine Nitrate Urine Bilirubin Urine Urobilinogen Ur Leukocyte Esterase Urine RBC Urine WBC Ur Epithelial Cells Urine Bacteria Salicylates Urine Opiates Screen Urine Methadone Screen Acetaminophen Ur Barbiturates Screen Ur Phencyclidine Scrn Ur Amphetamines Screen U Benzodiazepines Scrn U Oth Cocaine Metabols U Cannabinoids Screen Alcohol, Quantitative 03/19/18 03/19/18 03/20/18 20:39 20:39 02:40 WBC RBC Hgb Hct MCV MCH MCHC RDW Plt Count MPV Gran % Lymph % (Auto) Bowie % (Auto) Eos % (Auto) Baso % (Auto) Gran # Lymph # (Auto) Bowie # (Auto) Eos # (Auto) Baso # (Auto) Neutrophils % (Manual) Lymphocytes % (Manual) Monocytes % (Manual) Platelet Evaluation pCO2 pO2 HCO3 ABG pH ABG Total CO2 ABG O2 Saturation ABG Base Excess ABG Potassium Glucose Lactate FiO2 Sodium Potassium Chloride Carbon Dioxide Anion Gap BUN Creatinine Est GFR ( Amer) Est GFR (Non-Af Amer) POC Glucose (mg/dL) Random Glucose Hemoglobin A1c Calcium Phosphorus Magnesium Total Bilirubin AST ALT Alkaline Phosphatase Lactate Dehydrogenase Total Creatine Kinase CK-MB (CK-2) CK-MB (CK-2) % Troponin I 0.02 D Total Protein Albumin Globulin Albumin/Globulin Ratio Triglycerides Cholesterol LDL Cholesterol Direct HDL Cholesterol Free T4 TSH 3rd Generation Arterial Blood Potassium Urine Color Yellow Urine Appearance Clear Urine pH 6.0 Ur Specific Provencal >= 1.030 Urine Protein 30 H Urine Glucose (UA) Negative Urine Ketones >=80 Urine Blood Large H Urine Nitrate Negative Urine Bilirubin Moderate H Urine Urobilinogen 0.2 Ur Leukocyte Esterase Negative Urine RBC 10 - 15 Urine WBC 0 - 2 Ur Epithelial Cells 0 - 2 Urine Bacteria Neg Salicylates Urine Opiates Screen Negative Urine Methadone Screen Negative Acetaminophen Ur Barbiturates Screen Negative Ur Phencyclidine Scrn Negative Ur Amphetamines Screen Negative U Benzodiazepines Scrn Negative U Oth Cocaine Metabols Negative U Cannabinoids Screen Negative Alcohol, Quantitative 03/20/18 03/20/18 03/20/18 05:30 05:30 08:00 WBC 10.2 D RBC 4.00 Hgb 10.7 L Hct 34.4 L MCV 86.0 MCH 26.8 MCHC 31.1 RDW 16.7 H Plt Count 284 MPV 9.4 Gran % 68.6 H Lymph % (Auto) 22.2 Bowie % (Auto) 9.0 H Eos % (Auto) 0.1 L Baso % (Auto) 0.1 Gran # 6.97 H Lymph # (Auto) 2.3 Bowie # (Auto) 0.9 H Eos # (Auto) 0.0 Baso # (Auto) 0.01 Neutrophils % (Manual) Lymphocytes % (Manual) Monocytes % (Manual) Platelet Evaluation pCO2 pO2 HCO3 ABG pH ABG Total CO2 ABG O2 Saturation ABG Base Excess ABG Potassium Glucose Lactate FiO2 Sodium 139 Potassium 3.3 L Chloride 111 H Carbon Dioxide 16 L Anion Gap 16 BUN 18 Creatinine 0.9 Est GFR ( Amer) > 60 Est GFR (Non-Af Amer) > 60 POC Glucose (mg/dL) Random Glucose 85 Hemoglobin A1c Calcium 7.8 L Phosphorus 2.3 L Magnesium 2.0 Total Bilirubin 0.4 AST 51 H D ALT 42 Alkaline Phosphatase 123 Lactate Dehydrogenase Total Creatine Kinase 803 H CK-MB (CK-2) 5.8 H CK-MB (CK-2) % 0.7 L Troponin I Total Protein 6.8 Albumin 3.8 Globulin 3.0 Albumin/Globulin Ratio 1.3 Triglycerides Cholesterol LDL Cholesterol Direct HDL Cholesterol Free T4 1.12 TSH 3rd Generation 0.16 L Arterial Blood Potassium Urine Color Urine Appearance Urine pH Ur Specific Provencal Urine Protein Urine Glucose (UA) Urine Ketones Urine Blood Urine Nitrate Urine Bilirubin Urine Urobilinogen Ur Leukocyte Esterase Urine RBC Urine WBC Ur Epithelial Cells Urine Bacteria Salicylates Urine Opiates Screen Urine Methadone Screen Acetaminophen Ur Barbiturates Screen Ur Phencyclidine Scrn Ur Amphetamines Screen U Benzodiazepines Scrn U Oth Cocaine Metabols U Cannabinoids Screen Alcohol, Quantitative EKG/Cardiology Studies: Cardiology / EKG Studies 03/19/18 17:41 EKG [ELECTROCARDIOGRAM] Stat Comment: Reason For Exam: AMS 03/20/18 07:02 EKG [ELECTROCARDIOGRAM] Stat Comment: Reason For Exam: prolonged QTc Critical Care Progress Note - Nutrition Nutrition: Nutrition Category Date Time Status Heart Healthy Diet [DIET] Diets 03/19/18 Breakfast Active Assessment/Plan - Assessment and Plan (Free Text) Assessment: 77 y/o female with PMH of HTN and CVA who was admitted to ICU for treatment of AMS and JOSE in the setting of metabolic alkalosis. Plan: Neuro: - Patient is AOx3 today. no focal deficits. AMS resolved - CT head without contrast: No acute intracranial pathology. - h/x of CVA, not on aspirin, statin CVS: - EKG: NSR, normal axis QTc [address] elevations - Prolonged QTc. Avoid qtc prolonging agents - h/o HTN. does not take medications Renal: - JOSE due to dehydration - Metabolic alkalosis with AG~ 26, improving today and gap is closing - bicarb 100mEq/1000 cc - continue with half normal NS @ 100cc/hr - Rhabdomyolysis with elevated CPK - UA: positive for blood (likely myoglobin) no RBC - UDS: no positive findings ID: - UA: negative, no UTI - Leukocytosis - CXR: no acute pathology - f/u CBC - Blood and urine cultures pending Pulm: - CXR: no acute pathology - Maintain O2 sat >90% Prophylaxis - DVT ppx: SCD - GI ppx: famotidine Case reviewed and plan discussed with attending physician Dr. mccord <Vashti Mccord - Last Filed: 03/20/18 16:13> CCU Objective - Vital Signs / Intake & Output Intake and Output (Last 8hrs): Intake & Output 03/20/18 03/20/18 03/20/18 06:59 14:59 22:59 Intake Total 1000 Output Total 400 Balance 600 Weight 62.142 kg Intake: IV 1000 Right Forearm 1000 Output: Urine 400 Urine, Voided 400 Stool 0 - Medications Active Medications: Active Medications Generic Name Dose Route Start Last Admin Trade Name Freq PRN Reason Stop Dose Admin Sodium Chloride 1,000 mls @ 100 mls/hr 03/19/18 22:00 03/20/18 09:00 Sodium Chloride 0.45% IV 100 mls/hr .Q10H MITCH Administration - Patient Studies Lab Studies: Lab Studies 03/20/18 03/20/18 03/20/18 Range/Units 08:00 05:30 05:30 WBC 10.2 D (4.5-11.0) 10^3/uL RBC 4.00 (3.5-6.1) 10^6/uL Hgb 10.7 L (12.0-16.0) g/dL Hct 34.4 L (36.0-48.0) % MCV 86.0 (80.0-105.0) fl MCH 26.8 (25.0-35.0) pg MCHC 31.1 (31.0-37.0) g/dl RDW 16.7 H (11.5-14.5) % Plt Count 284 (120.0-450.0) 10^3/uL MPV 9.4 (7.0-11.0) fl Gran % 68.6 H (50.0-68.0) % Lymph % (Auto) 22.2 (22.0-35.0) % Bowie % (Auto) 9.0 H (1.0-6.0) % Eos % (Auto) 0.1 L (1.5-5.0) % Baso % (Auto) 0.1 (0.0-3.0) % Gran # 6.97 H (1.4-6.5) Lymph # (Auto) 2.3 (1.2-3.4) Bowie # (Auto) 0.9 H (0.1-0.6) Eos # (Auto) 0.0 (0.0-0.7) Baso # (Auto) 0.01 (0.0-2.0) K/mm3 Neutrophils % (Manual) (50.0-70.0) % Lymphocytes % (Manual) (22.0-35.0) % Monocytes % (Manual) (1.0-6.0) % Platelet Evaluation (NORMAL) pCO2 (35-45) mm/Hg pO2 (80-100) mm/Hg HCO3 (21-28) mmol/L ABG pH (7.35-7.45) ABG Total CO2 (22-28) mmol.L ABG O2 Saturation (95-98) % ABG Base Excess (-2.0-3.0) mmol/L ABG Potassium (3.6-5.2) mmol/L Glucose (65-105) mg/dl Lactate (0.7-2.1) mmol/L FiO2 % Sodium 139 (132-148) mmol/L Potassium 3.3 L (3.6-5.0) mmol/L Chloride 111 H (98-107) mmol/L Carbon Dioxide 16 L (21-33) mmol/L Anion Gap 16 (10-20) BUN 18 (7-21) mg/dL Creatinine 0.9 (0.7-1.2) mg/dl Est GFR ( Amer) > 60 Est GFR (Non-Af Amer) > 60 POC Glucose (mg/dL) (65-110) mg/dL Random Glucose 85 (70-110) mg/dL Hemoglobin A1c (4.2-6.5) % Calcium 7.8 L (8.4-10.5) mg/dL Phosphorus 2.3 L (2.5-4.5) mg/dL Magnesium 2.0 (1.7-2.2) mg/dL Total Bilirubin 0.4 (0.2-1.3) mg/dL AST 51 H D (14-36) U/L ALT 42 (7-56) U/L Alkaline Phosphatase 123 (38-126) U/L Lactate Dehydrogenase (333-699) U/L Total Creatine Kinase 803 H (35-230) U/L CK-MB (CK-2) 5.8 H (0.0-3.6) ng/mL CK-MB (CK-2) % 0.7 L (2.5-3.0) % Troponin I ng/mL Total Protein 6.8 (5.8-8.3) g/dL Albumin 3.8 (3.0-4.8) g/dL Globulin 3.0 gm/dL Albumin/Globulin Ratio 1.3 (1.1-1.8) Triglycerides (35-160) mg/dL Cholesterol (130-200) mg/dL LDL Cholesterol Direct (0-129) mg/dL HDL Cholesterol (29-60) mg/dL Free T4 1.12 (0.78-2.19) ng/dL TSH 3rd Generation 0.16 L (0.46-4.68) mIU/mL Arterial Blood Potassium (3.6-5.2) mmol/L Urine Color (YELLOW) Urine Appearance (CLEAR) Urine pH (4.7-8.0) Ur Specific Provencal (1.005-1.035) Urine Protein (<30 mg/dL) mg/dL Urine Glucose (UA) (NEGATIVE) mg/dL Urine Ketones (NEGATIVE) mg/dL Urine Blood (NEGATIVE) Urine Nitrate (NEGATIVE) Urine Bilirubin (NEGATIVE) Urine Urobilinogen (<1 E.U./dL) E.U./dL Ur Leukocyte Esterase (NEGATIVE) Kary/uL Urine RBC (0-2) /hpf Urine WBC (0-6) /hpf Ur Epithelial Cells (0-5) /hpf Urine Bacteria (NEG) Salicylates (2.0-20.0) mg/dL Urine Opiates Screen (NEGATIVE) Urine Methadone Screen (NEGATIVE) Acetaminophen (10.0-20.0) ug/ml Ur Barbiturates Screen (NEGATIVE) Ur Phencyclidine Scrn (NEGATIVE) Ur Amphetamines Screen (NEGATIVE) U Benzodiazepines Scrn (NEGATIVE) U Oth Cocaine Metabols (NEGATIVE) U Cannabinoids Screen (NEGATIVE) Alcohol, Quantitative (0-10) mg/dL 03/20/18 03/19/18 03/19/18 Range/Units 02:40 20:39 20:39 WBC (4.5-11.0) 10^3/uL RBC (3.5-6.1) 10^6/uL Hgb (12.0-16.0) g/dL Hct (36.0-48.0) % MCV (80.0-105.0) fl MCH (25.0-35.0) pg MCHC (31.0-37.0) g/dl RDW (11.5-14.5) % Plt Count (120.0-450.0) 10^3/uL MPV (7.0-11.0) fl Gran % (50.0-68.0) % Lymph % (Auto) (22.0-35.0) % Bowie % (Auto) (1.0-6.0) % Eos % (Auto) (1.5-5.0) % Baso % (Auto) (0.0-3.0) % Gran # (1.4-6.5) Lymph # (Auto) (1.2-3.4) Bowie # (Auto) (0.1-0.6) Eos # (Auto) (0.0-0.7) Baso # (Auto) (0.0-2.0) K/mm3 Neutrophils % (Manual) (50.0-70.0) % Lymphocytes % (Manual) (22.0-35.0) % Monocytes % (Manual) (1.0-6.0) % Platelet Evaluation (NORMAL) pCO2 (35-45) mm/Hg pO2 (80-100) mm/Hg HCO3 (21-28) mmol/L ABG pH (7.35-7.45) ABG Total CO2 (22-28) mmol.L ABG O2 Saturation (95-98) % ABG Base Excess (-2.0-3.0) mmol/L ABG Potassium (3.6-5.2) mmol/L Glucose (65-105) mg/dl Lactate (0.7-2.1) mmol/L FiO2 % Sodium (132-148) mmol/L Potassium (3.6-5.0) mmol/L Chloride (98-107) mmol/L Carbon Dioxide (21-33) mmol/L Anion Gap (10-20) BUN (7-21) mg/dL Creatinine (0.7-1.2) mg/dl Est GFR ( Amer) Est GFR (Non-Af Amer) POC Glucose (mg/dL) (65-110) mg/dL Random Glucose (70-110) mg/dL Hemoglobin A1c (4.2-6.5) % Calcium (8.4-10.5) mg/dL Phosphorus (2.5-4.5) mg/dL Magnesium (1.7-2.2) mg/dL Total Bilirubin (0.2-1.3) mg/dL AST (14-36) U/L ALT (7-56) U/L Alkaline Phosphatase (38-126) U/L Lactate Dehydrogenase (333-699) U/L Total Creatine Kinase (35-230) U/L CK-MB (CK-2) (0.0-3.6) ng/mL CK-MB (CK-2) % (2.5-3.0) % Troponin I 0.02 D ng/mL Total Protein (5.8-8.3) g/dL Albumin (3.0-4.8) g/dL Globulin gm/dL Albumin/Globulin Ratio (1.1-1.8) Triglycerides (35-160) mg/dL Cholesterol (130-200) mg/dL LDL Cholesterol Direct (0-129) mg/dL HDL Cholesterol (29-60) mg/dL Free T4 (0.78-2.19) ng/dL TSH 3rd Generation (0.46-4.68) mIU/mL Arterial Blood Potassium (3.6-5.2) mmol/L Urine Color Yellow (YELLOW) Urine Appearance Clear (CLEAR) Urine pH 6.0 (4.7-8.0) Ur Specific Provencal >= 1.030 (1.005-1.035) Urine Protein 30 H (<30 mg/dL) mg/dL Urine Glucose (UA) Negative (NEGATIVE) mg/dL Urine Ketones >=80 (NEGATIVE) mg/dL Urine Blood Large H (NEGATIVE) Urine Nitrate Negative (NEGATIVE) Urine Bilirubin Moderate H (NEGATIVE) Urine Urobilinogen 0.2 (<1 E.U./dL) E.U./dL Ur Leukocyte Esterase Negative (NEGATIVE) Kary/uL Urine RBC 10 - 15 (0-2) /hpf Urine WBC 0 - 2 (0-6) /hpf Ur Epithelial Cells 0 - 2 (0-5) /hpf Urine Bacteria Neg (NEG) Salicylates (2.0-20.0) mg/dL Urine Opiates Screen Negative (NEGATIVE) Urine Methadone Screen Negative (NEGATIVE) Acetaminophen (10.0-20.0) ug/ml Ur Barbiturates Screen Negative (NEGATIVE) Ur Phencyclidine Scrn Negative (NEGATIVE) Ur Amphetamines Screen Negative (NEGATIVE) U Benzodiazepines Scrn Negative (NEGATIVE) U Oth Cocaine Metabols Negative (NEGATIVE) U Cannabinoids Screen Negative (NEGATIVE) Alcohol, Quantitative (0-10) mg/dL 03/19/18 03/19/18 03/19/18 Range/Units 19:24 19:00 19:00 WBC (4.5-11.0) 10^3/uL RBC (3.5-6.1) 10^6/uL Hgb (12.0-16.0) g/dL Hct (36.0-48.0) % MCV (80.0-105.0) fl MCH (25.0-35.0) pg MCHC (31.0-37.0) g/dl RDW (11.5-14.5) % Plt Count (120.0-450.0) 10^3/uL MPV (7.0-11.0) fl Gran % (50.0-68.0) % Lymph % (Auto) (22.0-35.0) % Bowie % (Auto) (1.0-6.0) % Eos % (Auto) (1.5-5.0) % Baso % (Auto) (0.0-3.0) % Gran # (1.4-6.5) Lymph # (Auto) (1.2-3.4) Bowie # (Auto) (0.1-0.6) Eos # (Auto) (0.0-0.7) Baso # (Auto) (0.0-2.0) K/mm3 Neutrophils % (Manual) (50.0-70.0) % Lymphocytes % (Manual) (22.0-35.0) % Monocytes % (Manual) (1.0-6.0) % Platelet Evaluation (NORMAL) pCO2 23 L (35-45) mm/Hg pO2 95.0 (80-100) mm/Hg HCO3 9.0 L* (21-28) mmol/L ABG pH 7.20 L (7.35-7.45) ABG Total CO2 9.7 L (22-28) mmol.L ABG O2 Saturation 97.8 (95-98) % ABG Base Excess -17.2 L (-2.0-3.0) mmol/L ABG Potassium 3.2 L (3.6-5.2) mmol/L Glucose 85 (65-105) mg/dl Lactate 0.7 (0.7-2.1) mmol/L FiO2 21.0 % Sodium 140.0 (132-148) mmol/L Potassium (3.6-5.0) mmol/L Chloride 104.0 (98-107) mmol/L Carbon Dioxide (21-33) mmol/L Anion Gap (10-20) BUN (7-21) mg/dL Creatinine (0.7-1.2) mg/dl Est GFR ( Amer) Est GFR (Non-Af Amer) POC Glucose (mg/dL) (65-110) mg/dL Random Glucose (70-110) mg/dL Hemoglobin A1c 5.8 (4.2-6.5) % Calcium (8.4-10.5) mg/dL Phosphorus (2.5-4.5) mg/dL Magnesium (1.7-2.2) mg/dL Total Bilirubin (0.2-1.3) mg/dL AST (14-36) U/L ALT (7-56) U/L Alkaline Phosphatase (38-126) U/L Lactate Dehydrogenase (333-699) U/L Total Creatine Kinase (35-230) U/L CK-MB (CK-2) (0.0-3.6) ng/mL CK-MB (CK-2) % (2.5-3.0) % Troponin I ng/mL Total Protein (5.8-8.3) g/dL Albumin (3.0-4.8) g/dL Globulin gm/dL Albumin/Globulin Ratio (1.1-1.8) Triglycerides (35-160) mg/dL Cholesterol (130-200) mg/dL LDL Cholesterol Direct (0-129) mg/dL HDL Cholesterol (29-60) mg/dL Free T4 (0.78-2.19) ng/dL TSH 3rd Generation 0.29 L (0.46-4.68) mIU/mL Arterial Blood Potassium 3.2 L (3.6-5.2) mmol/L Urine Color (YELLOW) Urine Appearance (CLEAR) Urine pH (4.7-8.0) Ur Specific Provencal (1.005-1.035) Urine Protein (<30 mg/dL) mg/dL Urine Glucose (UA) (NEGATIVE) mg/dL Urine Ketones (NEGATIVE) mg/dL Urine Blood (NEGATIVE) Urine Nitrate (NEGATIVE) Urine Bilirubin (NEGATIVE) Urine Urobilinogen (<1 E.U./dL) E.U./dL Ur Leukocyte Esterase (NEGATIVE) Kary/uL Urine RBC (0-2) /hpf Urine WBC (0-6) /hpf Ur Epithelial Cells (0-5) /hpf Urine Bacteria (NEG) Salicylates (2.0-20.0) mg/dL Urine Opiates Screen (NEGATIVE) Urine Methadone Screen (NEGATIVE) Acetaminophen (10.0-20.0) ug/ml Ur Barbiturates Screen (NEGATIVE) Ur Phencyclidine Scrn (NEGATIVE) Ur Amphetamines Screen (NEGATIVE) U Benzodiazepines Scrn (NEGATIVE) U Oth Cocaine Metabols (NEGATIVE) U Cannabinoids Screen (NEGATIVE) Alcohol, Quantitative (0-10) mg/dL 03/19/18 03/19/18 03/19/18 Range/Units 19:00 18:42 18:42 WBC 14.4 H (4.5-11.0) 10^3/uL RBC 4.53 (3.5-6.1) 10^6/uL Hgb 12.2 (12.0-16.0) g/dL Hct 39.4 (36.0-48.0) % MCV 87.0 (80.0-105.0) fl MCH 26.9 (25.0-35.0) pg MCHC 31.0 (31.0-37.0) g/dl RDW 16.7 H (11.5-14.5) % Plt Count 339 (120.0-450.0) 10^3/uL MPV 9.8 (7.0-11.0) fl Gran % 90.2 H (50.0-68.0) % Lymph % (Auto) 7.8 L (22.0-35.0) % Bowie % (Auto) 1.9 (1.0-6.0) % Eos % (Auto) 0.0 L (1.5-5.0) % Baso % (Auto) 0.1 (0.0-3.0) % Gran # 13.00 H (1.4-6.5) Lymph # (Auto) 1.1 L (1.2-3.4) Bowie # (Auto) 0.3 (0.1-0.6) Eos # (Auto) 0.0 (0.0-0.7) Baso # (Auto) 0.01 (0.0-2.0) K/mm3 Neutrophils % (Manual) 86 H (50.0-70.0) % Lymphocytes % (Manual) 13 L (22.0-35.0) % Monocytes % (Manual) 1 (1.0-6.0) % Platelet Evaluation Normal (NORMAL) pCO2 (35-45) mm/Hg pO2 (80-100) mm/Hg HCO3 (21-28) mmol/L ABG pH (7.35-7.45) ABG Total CO2 (22-28) mmol.L ABG O2 Saturation (95-98) % ABG Base Excess (-2.0-3.0) mmol/L ABG Potassium (3.6-5.2) mmol/L Glucose (65-105) mg/dl Lactate (0.7-2.1) mmol/L FiO2 % Sodium (132-148) mmol/L Potassium (3.6-5.0) mmol/L Chloride (98-107) mmol/L Carbon Dioxide (21-33) mmol/L Anion Gap (10-20) BUN (7-21) mg/dL Creatinine (0.7-1.2) mg/dl Est GFR ( Amer) Est GFR (Non-Af Amer) POC Glucose (mg/dL) (65-110) mg/dL Random Glucose (70-110) mg/dL Hemoglobin A1c (4.2-6.5) % Calcium (8.4-10.5) mg/dL Phosphorus (2.5-4.5) mg/dL Magnesium (1.7-2.2) mg/dL Total Bilirubin (0.2-1.3) mg/dL AST (14-36) U/L ALT (7-56) U/L Alkaline Phosphatase (38-126) U/L Lactate Dehydrogenase (333-699) U/L Total Creatine Kinase (35-230) U/L CK-MB (CK-2) (0.0-3.6) ng/mL CK-MB (CK-2) % (2.5-3.0) % Troponin I ng/mL Total Protein (5.8-8.3) g/dL Albumin (3.0-4.8) g/dL Globulin gm/dL Albumin/Globulin Ratio (1.1-1.8) Triglycerides 204 H (35-160) mg/dL Cholesterol 241 H (130-200) mg/dL LDL Cholesterol Direct 158 H (0-129) mg/dL HDL Cholesterol 45 (29-60) mg/dL Free T4 (0.78-2.19) ng/dL TSH 3rd Generation (0.46-4.68) mIU/mL Arterial Blood Potassium (3.6-5.2) mmol/L Urine Color (YELLOW) Urine Appearance (CLEAR) Urine pH (4.7-8.0) Ur Specific Provencal (1.005-1.035) Urine Protein (<30 mg/dL) mg/dL Urine Glucose (UA) (NEGATIVE) mg/dL Urine Ketones (NEGATIVE) mg/dL Urine Blood (NEGATIVE) Urine Nitrate (NEGATIVE) Urine Bilirubin (NEGATIVE) Urine Urobilinogen (<1 E.U./dL) E.U./dL Ur Leukocyte Esterase (NEGATIVE) Kary/uL Urine RBC (0-2) /hpf Urine WBC (0-6) /hpf Ur Epithelial Cells (0-5) /hpf Urine Bacteria (NEG) Salicylates (2.0-20.0) mg/dL Urine Opiates Screen (NEGATIVE) Urine Methadone Screen (NEGATIVE) Acetaminophen (10.0-20.0) ug/ml Ur Barbiturates Screen (NEGATIVE) Ur Phencyclidine Scrn (NEGATIVE) Ur Amphetamines Screen (NEGATIVE) U Benzodiazepines Scrn (NEGATIVE) U Oth Cocaine Metabols (NEGATIVE) U Cannabinoids Screen (NEGATIVE) Alcohol, Quantitative < 10 (0-10) mg/dL 03/19/18 03/19/18 03/19/18 Range/Units 18:42 18:42 17:28 WBC (4.5-11.0) 10^3/uL RBC (3.5-6.1) 10^6/uL Hgb (12.0-16.0) g/dL Hct (36.0-48.0) % MCV (80.0-105.0) fl MCH (25.0-35.0) pg MCHC (31.0-37.0) g/dl RDW (11.5-14.5) % Plt Count (120.0-450.0) 10^3/uL MPV (7.0-11.0) fl Gran % (50.0-68.0) % Lymph % (Auto) (22.0-35.0) % Bowie % (Auto) (1.0-6.0) % Eos % (Auto) (1.5-5.0) % Baso % (Auto) (0.0-3.0) % Gran # (1.4-6.5) Lymph # (Auto) (1.2-3.4) Bowie # (Auto) (0.1-0.6) Eos # (Auto) (0.0-0.7) Baso # (Auto) (0.0-2.0) K/mm3 Neutrophils % (Manual) (50.0-70.0) % Lymphocytes % (Manual) (22.0-35.0) % Monocytes % (Manual) (1.0-6.0) % Platelet Evaluation (NORMAL) pCO2 (35-45) mm/Hg pO2 (80-100) mm/Hg HCO3 (21-28) mmol/L ABG pH (7.35-7.45) ABG Total CO2 (22-28) mmol.L ABG O2 Saturation (95-98) % ABG Base Excess (-2.0-3.0) mmol/L ABG Potassium (3.6-5.2) mmol/L Glucose (65-105) mg/dl Lactate (0.7-2.1) mmol/L FiO2 % Sodium 140 (132-148) mmol/L Potassium 3.7 (3.6-5.0) mmol/L Chloride 104 (98-107) mmol/L Carbon Dioxide 10 L (21-33) mmol/L Anion Gap 30 H (10-20) BUN 28 H (7-21) mg/dL Creatinine 1.4 H (0.7-1.2) mg/dl Est GFR ( Amer) 44 Est GFR (Non-Af Amer) 36 POC Glucose (mg/dL) 86 (65-110) mg/dL Random Glucose 95 (70-110) mg/dL Hemoglobin A1c (4.2-6.5) % Calcium 8.8 (8.4-10.5) mg/dL Phosphorus (2.5-4.5) mg/dL Magnesium (1.7-2.2) mg/dL Total Bilirubin 0.5 (0.2-1.3) mg/dL AST 65 H (14-36) U/L ALT 48 (7-56) U/L Alkaline Phosphatase 161 H (38-126) U/L Lactate Dehydrogenase 705 H (333-699) U/L Total Creatine Kinase 1110 H (35-230) U/L CK-MB (CK-2) 6.9 H (0.0-3.6) ng/mL CK-MB (CK-2) % 0.6 L (2.5-3.0) % Troponin I < 0.01 ng/mL Total Protein 8.4 H (5.8-8.3) g/dL Albumin 4.9 H (3.0-4.8) g/dL Globulin 3.5 gm/dL Albumin/Globulin Ratio 1.4 (1.1-1.8) Triglycerides (35-160) mg/dL Cholesterol (130-200) mg/dL LDL Cholesterol Direct (0-129) mg/dL HDL Cholesterol (29-60) mg/dL Free T4 (0.78-2.19) ng/dL TSH 3rd Generation (0.46-4.68) mIU/mL Arterial Blood Potassium (3.6-5.2) mmol/L Urine Color (YELLOW) Urine Appearance (CLEAR) Urine pH (4.7-8.0) Ur Specific Provencal (1.005-1.035) Urine Protein (<30 mg/dL) mg/dL Urine Glucose (UA) (NEGATIVE) mg/dL Urine Ketones (NEGATIVE) mg/dL Urine Blood (NEGATIVE) Urine Nitrate (NEGATIVE) Urine Bilirubin (NEGATIVE) Urine Urobilinogen (<1 E.U./dL) E.U./dL Ur Leukocyte Esterase (NEGATIVE) Kary/uL Urine RBC (0-2) /hpf Urine WBC (0-6) /hpf Ur Epithelial Cells (0-5) /hpf Urine Bacteria (NEG) Salicylates 3 (2.0-20.0) mg/dL Urine Opiates Screen (NEGATIVE) Urine Methadone Screen (NEGATIVE) Acetaminophen < 10.0 L (10.0-20.0) ug/ml Ur Barbiturates Screen (NEGATIVE) Ur Phencyclidine Scrn (NEGATIVE) Ur Amphetamines Screen (NEGATIVE) U Benzodiazepines Scrn (NEGATIVE) U Oth Cocaine Metabols (NEGATIVE) U Cannabinoids Screen (NEGATIVE) Alcohol, Quantitative (0-10) mg/dL Laboratory Results - last 24 hr 03/19/18 03/19/18 03/19/18 17:28 18:42 18:42 WBC RBC Hgb Hct MCV MCH MCHC RDW Plt Count MPV Gran % Lymph % (Auto) Bowie % (Auto) Eos % (Auto) Baso % (Auto) Gran # Lymph # (Auto) Bowie # (Auto) Eos # (Auto) Baso # (Auto) Neutrophils % (Manual) Lymphocytes % (Manual) Monocytes % (Manual) Platelet Evaluation pCO2 pO2 HCO3 ABG pH ABG Total CO2 ABG O2 Saturation ABG Base Excess ABG Potassium Glucose Lactate FiO2 Sodium 140 Potassium 3.7 Chloride 104 Carbon Dioxide 10 L Anion Gap 30 H BUN 28 H Creatinine 1.4 H Est GFR ( Amer) 44 Est GFR (Non-Af Amer) 36 POC Glucose (mg/dL) 86 Random Glucose 95 Hemoglobin A1c Calcium 8.8 Phosphorus Magnesium Total Bilirubin 0.5 AST 65 H ALT 48 Alkaline Phosphatase 161 H Lactate Dehydrogenase 705 H Total Creatine Kinase 1110 H CK-MB (CK-2) 6.9 H CK-MB (CK-2) % 0.6 L Troponin I < 0.01 Total Protein 8.4 H Albumin 4.9 H Globulin 3.5 Albumin/Globulin Ratio 1.4 Triglycerides Cholesterol LDL Cholesterol Direct HDL Cholesterol Free T4 TSH 3rd Generation Arterial Blood Potassium Urine Color Urine Appearance Urine pH Ur Specific Provencal Urine Protein Urine Glucose (UA) Urine Ketones Urine Blood Urine Nitrate Urine Bilirubin Urine Urobilinogen Ur Leukocyte Esterase Urine RBC Urine WBC Ur Epithelial Cells Urine Bacteria Salicylates 3 Urine Opiates Screen Urine Methadone Screen Acetaminophen < 10.0 L Ur Barbiturates Screen Ur Phencyclidine Scrn Ur Amphetamines Screen U Benzodiazepines Scrn U Oth Cocaine Metabols U Cannabinoids Screen Alcohol, Quantitative 03/19/18 03/19/18 03/19/18 18:42 18:42 19:00 WBC 14.4 H RBC 4.53 Hgb 12.2 Hct 39.4 MCV 87.0 MCH 26.9 MCHC 31.0 RDW 16.7 H Plt Count 339 MPV 9.8 Gran % 90.2 H Lymph % (Auto) 7.8 L Bowie % (Auto) 1.9 Eos % (Auto) 0.0 L Baso % (Auto) 0.1 Gran # 13.00 H Lymph # (Auto) 1.1 L Bowie # (Auto) 0.3 Eos # (Auto) 0.0 Baso # (Auto) 0.01 Neutrophils % (Manual) 86 H Lymphocytes % (Manual) 13 L Monocytes % (Manual) 1 Platelet Evaluation Normal pCO2 pO2 HCO3 ABG pH ABG Total CO2 ABG O2 Saturation ABG Base Excess ABG Potassium Glucose Lactate FiO2 Sodium Potassium Chloride Carbon Dioxide Anion Gap BUN Creatinine Est GFR ( Amer) Est GFR (Non-Af Amer) POC Glucose (mg/dL) Random Glucose Hemoglobin A1c Calcium Phosphorus Magnesium Total Bilirubin AST ALT Alkaline Phosphatase Lactate Dehydrogenase Total Creatine Kinase CK-MB (CK-2) CK-MB (CK-2) % Troponin I Total Protein Albumin Globulin Albumin/Globulin Ratio Triglycerides 204 H Cholesterol 241 H LDL Cholesterol Direct 158 H HDL Cholesterol 45 Free T4 TSH 3rd Generation Arterial Blood Potassium Urine Color Urine Appearance Urine pH Ur Specific Provencal Urine Protein Urine Glucose (UA) Urine Ketones Urine Blood Urine Nitrate Urine Bilirubin Urine Urobilinogen Ur Leukocyte Esterase Urine RBC Urine WBC Ur Epithelial Cells Urine Bacteria Salicylates Urine Opiates Screen Urine Methadone Screen Acetaminophen Ur Barbiturates Screen Ur Phencyclidine Scrn Ur Amphetamines Screen U Benzodiazepines Scrn U Oth Cocaine Metabols U Cannabinoids Screen Alcohol, Quantitative < 10 03/19/18 03/19/18 03/19/18 19:00 19:00 19:24 WBC RBC Hgb Hct MCV MCH MCHC RDW Plt Count MPV Gran % Lymph % (Auto) [place] % (Auto) Eos % (Auto) Baso % (Auto) Gran # Lymph # (Auto) [place] # (Auto) Eos # (Auto) Baso # (Auto) Neutrophils % (Manual) Lymphocytes % (Manual) Monocytes % (Manual) Platelet Evaluation pCO2 23 L pO2 95.0 HCO3 9.0 L* ABG pH 7.20 L ABG Total CO2 9.7 L ABG O2 Saturation 97.8 ABG Base Excess -17.2 L ABG Potassium 3.2 L Glucose 85 Lactate 0.7 FiO2 21.0 Sodium 140.0 Potassium Chloride 104.0 Carbon Dioxide Anion Gap BUN Creatinine Est GFR ( Amer) Est GFR (Non-Af Amer) POC Glucose (mg/dL) Random Glucose Hemoglobin A1c 5.8 Calcium Phosphorus Magnesium Total Bilirubin AST ALT Alkaline Phosphatase Lactate Dehydrogenase Total Creatine Kinase CK-MB (CK-2) CK-MB (CK-2) % Troponin I Total Protein Albumin Globulin Albumin/Globulin Ratio Triglycerides Cholesterol LDL Cholesterol Direct HDL Cholesterol Free T4 TSH 3rd Generation 0.29 L Arterial Blood Potassium 3.2 L Urine Color Urine Appearance Urine pH Ur Specific Proven[place] Urine Protein Urine Glucose (UA) Urine Ketones Urine Blood Urine Nitrate Urine Bilirubin Urine Urobilinogen Ur Leukocyte Esterase Urine RBC Urine WBC Ur Epithelial Cells Urine Bacteria Salicylates Urine Opiates Screen Urine Methadone Screen Acetaminophen Ur Barbiturates Screen Ur Phencyclidine Scrn Ur Amphetamines Screen U Benzodiazepines Scrn U Oth Cocaine Metabols U Cannabinoids Screen Alcohol, Quantitative 03/19/18 03/19/18 03/20/18 20:39 20:39 02:40 WBC RBC Hgb Hct MCV MCH MCHC RDW Plt Count MPV Gran % Lymph % (Auto) [place] % (Auto) Eos % (Auto) Baso % (Auto) Gran # Lymph # (Auto) [place] # (Auto) Eos # (Auto) Baso # (Auto) Neutrophils % (Manual) Lymphocytes % (Manual) Monocytes % (Manual) Platelet Evaluation pCO2 pO2 HCO3 ABG pH ABG Total CO2 ABG O2 Saturation ABG Base Excess ABG Potassium Glucose Lactate FiO2 Sodium Potassium Chloride Carbon Dioxide Anion Gap BUN Creatinine Est GFR ( Amer) Est GFR (Non-Af Amer) POC Glucose (mg/dL) Random Glucose Hemoglobin A1c Calcium Phosphorus Magnesium Total Bilirubin AST ALT Alkaline Phosphatase Lactate Dehydrogenase Total Creatine Kinase CK-MB (CK-2) CK-MB (CK-2) % Troponin I 0.02 D Total Protein Albumin Globulin Albumin/Globulin Ratio Triglycerides Cholesterol LDL Cholesterol Direct HDL Cholesterol Free T4 TSH 3rd Generation Arterial Blood Potassium Urine Color Yellow Urine Appearance Clear Urine pH 6.0 Ur Specific Provencal >= 1.030 Urine Protein 30 H Urine Glucose (UA) Negative Urine Ketones >=80 Urine Blood Large H Urine Nitrate Negative Urine Bilirubin Moderate H Urine Urobilinogen 0.2 Ur Leukocyte Esterase Negative Urine RBC 10 - 15 Urine WBC 0 - 2 Ur Epithelial Cells 0 - 2 Urine Bacteria Neg Salicylates Urine Opiates Screen Negative Urine Methadone Screen Negative Acetaminophen Ur Barbiturates Screen Negative Ur Phencyclidine Scrn Negative Ur Amphetamines Screen Negative U Benzodiazepines Scrn Negative U Oth Cocaine Metabols Negative U Cannabinoids Screen Negative Alcohol, Quantitative 03/20/18 03/20/18 03/20/18 05:30 05:30 08:00 WBC 10.2 D RBC 4.00 Hgb 10.7 L Hct 34.4 L MCV 86.0 MCH 26.8 MCHC 31.1 RDW 16.7 H Plt Count 284 MPV 9.4 Gran % 68.6 H Lymph % (Auto) 22.2 [place]ie % (Auto) 9.0 H Eos % (Auto) 0.1 L Baso % (Auto) 0.1 Gran # 6.97 H Lymph # (Auto) 2.3 [place]ie # (Auto) 0.9 H Eos # (Auto) 0.0 Baso # (Auto) 0.01 Neutrophils % (Manual) Lymphocytes % (Manual) Monocytes % (Manual) Platelet Evaluation pCO2 pO2 HCO3 ABG pH ABG Total CO2 ABG O2 Saturation ABG Base Excess ABG Potassium Glucose Lactate FiO2 Sodium 139 Potassium 3.3 L Chloride 111 H Carbon Dioxide 16 L Anion Gap 16 BUN 18 Creatinine 0.9 Est GFR ( Amer) > 60 Est GFR (Non-Af Amer) > 60 POC Glucose (mg/dL) Random Glucose 85 Hemoglobin A1c Calcium 7.8 L Phosphorus 2.3 L Magnesium 2.0 Total Bilirubin 0.4 AST 51 H D ALT 42 Alkaline Phosphatase 123 Lactate Dehydrogenase Total Creatine Kinase 803 H CK-MB (CK-2) 5.8 H CK-MB (CK-2) % 0.7 L Troponin I Total Protein 6.8 Albumin 3.8 Globulin 3.0 Albumin/Globulin Ratio 1.3 Triglycerides Cholesterol LDL Cholesterol Direct HDL Cholesterol Free T4 1.12 TSH 3rd Generation 0.16 L Arterial Blood Potassium Urine Color Urine Appearance Urine pH Ur Specific [place] Urine Protein Urine Glucose (UA) Urine Ketones Urine Blood Urine Nitrate Urine Bilirubin Urine Urobilinogen Ur Leukocyte Esterase Urine RBC Urine WBC Ur Epithelial Cells Urine Bacteria Salicylates Urine Opiates Screen Urine Methadone Screen Acetaminophen Ur Barbiturates Screen Ur Phencyclidine Scrn Ur Amphetamines Screen U Benzodiazepines Scrn U Oth Cocaine Metabols U Cannabinoids Screen Alcohol, Quantitative EKG/Cardiology Studies: Cardiology / EKG Studies 03/19/18 17:41 EKG [ELECTROCARDIOGRAM] Stat Comment: Reason For Exam: AMS 03/20/18 07:02 EKG [ELECTROCARDIOGRAM] Stat Comment: Reason For Exam: prolonged QTc Critical Care Progress Note - Nutrition Nutrition: Nutrition Category Date Time Status Heart Healthy Diet [DIET] Diets 03/19/18 Breakfast Active Addendum Addendum: 03/20/18 16:13 MICU Attending Addendum: Patient seen and examined; Discussed with housestaff, agree with note above with the following additions and exceptions: 77 F with hx of htn and cva admitted to the ICU with metabolic acidosis and AMS. AMS has significantly improved with hydration and biarb drip. She has JOSE, slightl elevated CPK, ketones in her urine as well bloody urine with minimal RBC. I suspect she was very dehydrate and poorly nutritioned acutely developing a starvation ketosis. This resovled quickly and bicar rising. Would cont fluids for now allow her to eat if not, then provide dextrose in fluids other stable for transfer out of ICU rest of care above Vashti Mccord MD PCC Attending
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
[2018-03-21] MEDS: Sodium Chloride 0.45% 1,000 ML IV SCH (04:00)
[2018-03-21 06:05] LABS: BASO # 0.02 K/mm3 (0.0-2.0); BASO % 0.2 % (0.0-3.0); EOS # 0.1 (0.0-0.7); EOS % 0.8 % (1.5-5.0); GRAN # 6.28 (1.4-6.5); GRAN % 71.3 % (50.0-68.0); LYMPH # 1.8 (1.2-3.4); LYMPH % 20.5 % (22.0-35.0); MEAN CELL VOLUME 85.7 fl (80.0-105.0); MEAN CORPUSCULAR HEMOGLOBIN 26.7 pg (25.0-35.0); MEAN CORPUSCULAR HGB CONC 31.2 g/dl (31.0-37.0); MEAN PLATELET VOLUME 9.1 fl (7.0-11.0); MONO # 0.6 (0.1-0.6); MONO % 7.2 % (1.0-6.0); RBC 4.12 10^6/uL (3.5-6.1); RED CELL DISTRIBUTION WIDTH 16.8 % (11.5-14.5); WHITE BLOOD COUNT 8.8 10^3/uL (4.5-11.0)
--- NOTE | 2018-03-21 06:47 | CP.PCM.PN ---
<Sukhwinder Churchill L - Last Filed: 03/21/18 16:05> Subjective - Date & Time of Evaluation Date of Evaluation: 03/21/18 Time of Evaluation: 06:46 - Subjective Subjective: Resident Progress Note for Hospitalist Service Patient examined at bedside. No acute events overnight. States that she is feeling better since being admitted to the hospital. Has no complaints at this time. Denies fevers, chills, headache, dizziness, chest pain, shortness of breath, abdominal pain, dysuria. Objective - Vital Signs/Intake and Output Vital Signs (last 24 hours): Temp Pulse Resp BP Pulse Ox 98 F 78 16 160/85 H 94 L 03/21/18 04:00 03/20/18 23:30 03/20/18 23:30 03/20/18 22:00 03/20/18 09:00 Intake and Output: 03/20/18 03/21/18 18:59 06:59 Intake Total 2100 1300 Output Total 600 1000 Balance 1500 300 - Medications Medications: Current Medications Sodium Chloride (Sodium Chloride 0.45%) 1,000 mls @ 100 mls/hr IV .Q10H [facility] Last Admin: 03/21/18 04:00 Dose: 100 mls/hr - Labs Labs: 03/21/18 05:45 03/20/18 05:30 - Additional Findings Additional findings: - Constitutional Appears: No Acute Distress - Eye Exam Eye Exam: EOMI, PERRLA - ENT Exam ENT Exam: Mucous Membranes Dry - Neck Exam Neck Exam: Full ROM, non-tender to touch - Respiratory Exam Respiratory Exam: Clear to Auscultation Bilateral, NORMAL BREATHING PATTERN - Cardiovascular Exam Cardiovascular Exam: REGULAR RHYTHM, resolving tachycardia +S1, +S2, no murmurs, no rubs, no gallops - GI/Abdominal Exam GI & Abdominal Exam: Soft, Normal Bowel Sounds. absent: Tenderness - Extremities Exam Extremities Exam: no clubbing, no cyanosis, no edema - Neurological Exam Neurological Exam: Alert, Awake, orientated x 3, responds to verbal stimuli, occasionally answers appropriately - Psychiatric Exam Psychiatric exam: Normal Affect, Normal Mood - Skin Skin Exam: numerous seborrheic keratosis lesions on back Assessment and Plan - Assessment and Plan (Free Text) Plan: Confusion - 03/19/2018 CT head without contrast- 1. There is generalized parenchymal atrophy noted as demonstrated by symmetrical dilatation of ventricles and sulci. 2. 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 3. No acute in tracranial pathology. - 03/19/2018 EKG Normal sinus rhythm normal axis QTc [address] elevations - likely secondary to uremia 2/2 pre-renal jose 2/2 dehydration - UA negative for UTI, no symptoms currently - UDS, salicylates, ETOH and Acetaminophen- reviewed and negative - has hx of CVA, aspirin started. Start statin when rhabdomyolysis resolves. - TSH 0.29 and 0.16. F/u free T3 and T4 - neuro consulted- recs appreciated Anion Gap Metabolic Acidosis- closed - AGMA with AG~ 26 likely secondary to uremia 2/2 pre-renal jose 2/2 dehydration, resolved with gap 13 - bicarb 100mEq/1000 cc half NS followed by half normal NS @ 100cc/hr given JOSE - pre-renal in nature likely 2/2 dehydration - IVF discontinued - nephrology consulted- appreciate recommendations Rhabdomyolysis - resolving - Total CK 803 -> 437 HX of CVA - patient denies focal deficits - does not know if she is on aspirin or statin - neuro consulted- appreciate recs Leukocytosis- resolved - UA and CXR- no signs of infection - likely reactive in nature - monitor with labs Prolonged QTc - avoid qtc prolonging agents Hx of HTN - patient's home meds confirmed - Lisinopril 10 mg daily, amlodipine 5 mg daily, labetalol 300 mg BID - continue to monitor Prophylaxis - DVT ppx- scds - GI ppx- famotidine Dispo: Pending PT eval Patient seen, case reviewed and plan approved by Dr. Pierre. Sukhwinder Churchill, PGY-1 <Thiago Pierre - Last Filed: 03/21/18 16:39> Objective - Vital Signs/Intake and Output Vital Signs (last 24 hours): Temp Pulse Resp BP Pulse Ox 98.1 F 88 23 194/101 H 94 L 03/21/18 16:00 03/21/18 16:20 03/21/18 16:20 03/21/18 16:00 03/20/18 09:00 Intake and Output: 03/21/18 03/21/18 06:59 18:59 Intake Total 1300 Output Total 1000 Balance 300 - Medications Medications: Current Medications Amlodipine Besylate (Norvasc) 5 mg PO DAILY [facility] Aspirin (Aspirin Chewable) 81 mg PO DAILY [facility] Labetalol HCl (Trandate) 300 mg PO BID [facility] Lisinopril (Zestril) 10 mg PO DAILY [facility] - Labs Labs: 03/21/18 05:45 03/21/18 05:45 Attending/Attestation - Attestation I have personally seen and examined this patient.: Yes I have fully participated in the care of the patient.: Yes I have reviewed all pertinent clinical information, including history, physical exam and plan: Yes Notes (Text): 03/21/18 16:35 77 year old female with past medical history of hypertension and CVA who presented with altered mental status. She was found to have JOSE, metabolic acidosis and rhabdomyolysis and started on ivf and bicarb. JOSE resolved and CPK/AG are improved. Nephrology evaluation was appreciated. CT head was negative for acute findings and UA not suggestive of UTI. Neurology evaluation was appreciated. PT evaluation also appreciated; recommend ed TCU. Home medications were verified as labetalol, norvasc and lisinopril; will resume as patient is currently hypertensive. Will start aspirin as patient has history of CVA. Statin not started due to rhabdomyolysis. Will replete and repeat potassium. Thiago Pierre MD Hospitalist.
[2018-03-21 06:50] LABS: ALB/GLOB RATIO 1.2 (1.1-1.8); ALBUMIN 3.7 g/dL (3.0-4.8); ALT/SGPT 40 U/L (7-56); AST/SGOT 40 U/L (14-36); BLOOD UREA NITROGEN 9 mg/dL (7-21); CALCIUM 8.3 mg/dL (8.4-10.5); CK-MB 2.7 ng/mL (0.0-3.6); GFR NON-AFRICAN AMERICAN > 60
--- NOTE | 2018-03-21 21:49 | CP.PCM.PN ---
Subjective - Date & Time of Evaluation Date of Evaluation: 03/21/18 Time of Evaluation: 12:00 - Subjective Subjective: Reports feeling well; tolerating diet; Objective - Vital Signs/Intake and Output Vital Signs (last 24 hours): Temp Pulse Resp BP Pulse Ox 98.1 F 92 H 56 H 190/100 H 94 L 03/21/18 16:00 03/21/18 18:10 03/21/18 18:10 03/21/18 17:23 03/20/18 09:00 Intake and Output: 03/21/18 03/22/18 18:59 06:59 Intake Total 1100 Output Total 1150 Balance -50 - Medications Medications: Current Medications Amlodipine Besylate (Norvasc) 5 mg PO DAILY [facility] Last Admin: 03/21/18 17:23 Dose: 5 mg Aspirin (Aspirin Chewable) 81 mg PO DAILY [facility] Lisinopril (Zestril) 10 mg PO DAILY [facility] Last Admin: 03/21/18 17:23 Dose: 10 mg - Labs Labs: 03/21/18 05:45 03/21/18 05:45 - Constitutional Appears: Non-toxic, No Acute Distress - Eye Exam Eye Exam: Normal appearance - Respiratory Exam Respiratory Exam: Clear to Ausculation Bilateral. absent: Respiratory Distress - Cardiovascular Exam Cardiovascular Exam: RRR, +S1, +S2 - GI/Abdominal Exam GI & Abdominal Exam: Soft. absent: Distended, Tenderness - Extremities Exam Additional comments: no leg edema; - Neurological Exam Neurological Exam: Alert, Awake - Psychiatric Exam Psychiatric exam: Normal Mood. absent: Agitated - Skin Skin Exam: Warm. absent: Cyanosis Assessment and Plan (1) Electrolyte imbalance Assessment & Plan: Now mild non-AG metabolic acidosis, likely due to NS administration; no need for further IVF; mild hypokalemia, replenish prn; Status: Acute (2) HTN (hypertension) Assessment & Plan: BP markedly elevated; agree with starting amlodipine 5 and lisinopril 10; Status: Acute
[2018-03-22 06:17] LABS: BASO # 0.02 K/mm3 (0.0-2.0); BASO % 0.3 % (0.0-3.0); EOS # 0.1 (0.0-0.7); GRAN # 5.23 (1.4-6.5); GRAN % 67.5 % (50.0-68.0); HEMOGLOBIN 11.3 g/dL (12.0-16.0); LYMPH # 1.5 (1.2-3.4); LYMPH % 19.7 % (22.0-35.0); MEAN CELL VOLUME 85.1 fl (80.0-105.0); MEAN CORPUSCULAR HEMOGLOBIN 26.8 pg (25.0-35.0); MEAN CORPUSCULAR HGB CONC 31.5 g/dl (31.0-37.0); MEAN PLATELET VOLUME 9.4 fl (7.0-11.0); MONO # 0.9 (0.1-0.6); MONO % 11.5 % (1.0-6.0); RBC 4.22 10^6/uL (3.5-6.1); RED CELL DISTRIBUTION WIDTH 16.9 % (11.5-14.5); WHITE BLOOD COUNT 7.8 10^3/uL (4.5-11.0)
[2018-03-22 06:46] LABS: ALB/GLOB RATIO 1.2 (1.1-1.8); ALBUMIN 3.9 g/dL (3.0-4.8); ALT/SGPT 32 U/L (7-56); AST/SGOT 31 U/L (14-36); BLOOD UREA NITROGEN 10 mg/dL (7-21); CALCIUM 8.5 mg/dL (8.4-10.5); GFR NON-AFRICAN AMERICAN > 60
--- NOTE | 2018-03-22 07:18 | CP.PCM.PN ---
<Sukhwinder Churchill L - Last Filed: 03/22/18 10:50> Subjective - Date & Time of Evaluation Date of Evaluation: 03/22/18 Time of Evaluation: 08:00 - Subjective Subjective: Resident Progress Note for Hospitalist Service Patient examined at bedside. No acute events overnight. Patient is AAOx3 and states that she is not feeling confused. Denies headache, dizziness, chest pain, shortness of breath, abdominal pain, dysuria. Patient is awaiting evaluation for TCU. Objective - Vital Signs/Intake and Output Vital Signs (last 24 hours): Temp Pulse Resp BP Pulse Ox 98.3 F 83 21 117/57 L 94 L 03/22/18 04:00 03/22/18 04:50 03/22/18 04:50 03/22/18 04:00 03/20/18 09:00 - Medications Medications: Current Medications Amlodipine Besylate (Norvasc) 5 mg PO DAILY [facility] Last Admin: 03/21/18 17:23 Dose: 5 mg Aspirin (Aspirin Chewable) 81 mg PO DAILY [facility] Lisinopril (Zestril) 10 mg PO DAILY [facility] Last Admin: 03/21/18 17:23 Dose: 10 mg - Labs Labs: 03/22/18 05:45 03/22/18 05:45 - Additional Findings Additional findings: - Constitutional Appears: No Acute Distress - Eye Exam Eye Exam: EOMI, PERRLA - ENT Exam ENT Exam: Mucous Membranes Dry - Neck Exam Neck Exam: Full ROM, non-tender to touch - Respiratory Exam Respiratory Exam: Clear to Auscultation Bilateral, NORMAL BREATHING PATTERN - Cardiovascular Exam Cardiovascular Exam: REGULAR RHYTHM, resolving tachycardia +S1, +S2, no murmurs, no rubs, no gallops - GI/Abdominal Exam GI & Abdominal Exam: Soft, Normal Bowel Sounds. absent: Tenderness - Extremities Exam Extremities Exam: no clubbing, no cyanosis, no edema - Neurological Exam Neurological Exam: Alert, Awake, orientated x 3, responds to verbal stimuli, occasionally answers appropriately - Psychiatric Exam Psychiatric exam: Normal Affect, Normal Mood - Skin Skin Exam: numerous seborrheic keratosis lesions on back Assessment and Plan - Assessment and Plan (Free Text) Assessment: Patient is a 77 year old female with a past medical history of HTN and CVA (2.5 years ago per patient) who was admitted for evaluation and treatment of altered mental status. Plan: Confusion - 03/19/2018 CT head without contrast- 1. There is generalized parenchymal atrophy noted as demonstrated by symmetrical dilatation of ventricles and sulci. 2. 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 3. No acute intracranial pathology. - 03/19/2018 EKG Normal sinus rhythm normal axis QTc [address] elevations - likely secondary to uremia 2/2 pre-renal jose 2/2 dehydration - UA negative for UTI, no symptoms currently - UDS, salicylates, ETOH and Acetaminophen- reviewed and negative - TSH 0.29 and 0.16, free T3 2.41 (L), free T4 1.12 - patient has history of CVA - aspirin resumed - Lipitor 10 mg PO daily started as rhabdo has resolved - neuro consulted- recs appreciated Anion Gap Metabolic Acidosis- resolved - AGMA with AG~ 26 likely secondary to uremia 2/2 pre-renal jose 2/2 dehydration, resolved with gap 13 - bicarb 100mEq/1000 cc half NS followed by half normal NS @ 100cc/hr given JOSE - resolved - pre-renal in nature likely 2/2 dehydration - IVF discontinued - nephrology consulted- appreciate recommendations Rhabdomyolysis - resolved - Total CK 803 -> 437 -> 187 Leukocytosis- resolved - UA and CXR- no signs of infection - likely reactive in nature - monitor with labs Prolonged QTc - avoid qtc prolonging agents Hx of HTN - patient's home meds confirmed - starting home amlodipine dose 5 mg PO daily - continue to monitor and restart remaining home meds lisinopril 10 mg daily and labetalol 300 mg BID as tolerated Prophylaxis - DVT ppx- scds - GI ppx- famotidine Dispo: pending TCU eval Patient seen, case reviewed and plan approved by Dr. Pierre. Sukhwinder Churchill, PGY-1 <Thiago Pierre - Last Filed: 03/22/18 11:28> Objective - Vital Signs/Intake and Output Vital Signs (last 24 hours): Temp Pulse Resp BP Pulse Ox 97.3 F L 82 22 155/72 H 94 L 03/22/18 06:00 03/22/18 10:39 03/22/18 06:30 03/22/18 10:39 03/20/18 09:00 - Medications Medications: Current Medications Amlodipine Besylate (Norvasc) 5 mg PO DAILY [facility] Last Admin: 03/22/18 10:39 Dose: 5 mg Aspirin (Aspirin Chewable) 81 mg PO DAILY [facility] Last Admin: 03/22/18 09:00 Dose: 81 mg Atorvastatin Calcium (Lipitor) 10 mg PO DIN [facility] - Labs Labs: 03/22/18 05:45 03/22/18 05:45 Attending/Attestation - Attestation I have personally seen and examined this patient.: Yes I have fully participated in the care of the patient.: Yes I have reviewed all pertinent clinical information, including history, physical exam and plan: Yes Notes (Text): 03/22/18 11:21 77 year old female with past medical history of hypertension and CVA who presented with altered mental status. She was found to have JOSE, metabolic acidosis and rhabdomyolysis which is now resolved after ivf and bicarb. CT head was negative for acute findings and UA not suggestive of UTI. Mental status is back to baseline. Home medications were verified as labetalol, norvasc and lisinopril; bp medications are slowly being resumed as tolerated. As patient has history of CVA she is started on aspirin and now low dose statin as well as rhabdomyolysis has resolved if ok with neuro. Will replete and repeat potassium. PT initially recommended TCU, however does not have any insurance listed. Will request for PT follow up for reassessment and reach out to family regarding assistance at home. Thiago Pierre MD Hospitalist.
[2018-03-22] MEDS ORDERED: Potassium Chloride 20 mEq ER Tab PO STA (07:42)
[2018-03-23 05:11] LABS: BASO # 0.02 K/mm3 (0.0-2.0); BASO % 0.3 % (0.0-3.0); EOS # 0.1 (0.0-0.7); EOS % 1.8 % (1.5-5.0); GRAN # 4.15 (1.4-6.5); GRAN % 61.7 % (50.0-68.0); HEMOGLOBIN 11.7 g/dL (12.0-16.0); LYMPH # 1.7 (1.2-3.4); LYMPH % 25.7 % (22.0-35.0); MEAN CELL VOLUME 86.4 fl (80.0-105.0); MEAN CORPUSCULAR HEMOGLOBIN 26.6 pg (25.0-35.0); MEAN CORPUSCULAR HGB CONC 30.8 g/dl (31.0-37.0); MEAN PLATELET VOLUME 9.4 fl (7.0-11.0); MONO # 0.7 (0.1-0.6); MONO % 10.5 % (1.0-6.0); RBC 4.4 10^6/uL (3.5-6.1); WHITE BLOOD COUNT 6.7 10^3/uL (4.5-11.0)
[2018-03-23 06:35] LABS: ALB/GLOB RATIO 1.2 (1.1-1.8); ALT/SGPT 30 U/L (7-56); AST/SGOT 36 U/L (14-36); BLOOD UREA NITROGEN 16 mg/dL (7-21); CALCIUM 8.8 mg/dL (8.4-10.5); GFR NON-AFRICAN AMERICAN > 60
--- NOTE | 2018-03-23 10:14 | CP.PCM.PN ---
<Ton Weller - Last Filed: 03/23/18 15:26> Subjective - Date & Time of Evaluation Date of Evaluation: 03/23/18 Time of Evaluation: 07:20 - Subjective Subjective: Nephro Progress Note for Dr. Guerra Service Patient seen and examined at bedside. Awake, alert, and oriented x3 today (to self, location, year). No acute events reported overnight. Urinating without issue, denies hematuria, dysuria, flank pain. Objective - Vital Signs/Intake and Output Vital Signs (last 24 hours): Temp Pulse Resp BP Pulse Ox 97.7 F 76 20 110/62 96 03/23/18 08:42 03/23/18 09:52 03/23/18 08:42 03/23/18 09:52 03/23/18 08:42 - Medications Medications: Current Medications Amlodipine Besylate (Norvasc) 5 mg PO DAILY [facility] Last Admin: 03/23/18 09:52 Dose: 5 mg Aspirin (Aspirin Chewable) 81 mg PO DAILY [facility] Last Admin: 03/23/18 09:52 Dose: 81 mg Atorvastatin Calcium (Lipitor) 10 mg PO DIN [facility] Last Admin: 03/22/18 16:28 Dose: 10 mg - Labs Labs: 03/23/18 04:59 03/23/18 04:59 - Constitutional Appears: Non-toxic, No Acute Distress - Head Exam Head Exam: ATRAUMATIC, NORMAL INSPECTION, NORMOCEPHALIC - Eye Exam Eye Exam: EOMI, Normal appearance. absent: Conjunctival injection, Scleral icterus Pupil Exam: absent: Irregular, Unequal - ENT Exam ENT Exam: Mucous Membranes Moist - Neck Exam Neck Exam: Full ROM. absent: Lymphadenopathy - Respiratory Exam Respiratory Exam: Clear to Ausculation Bilateral, NORMAL BREATHING PATTERN. absent: Accessory Muscle Use, Chest Wall Tenderness, Decreased Breath Sounds, Rales, Rhonchi, Wheezes - Cardiovascular Exam Cardiovascular Exam: REGULAR RHYTHM, RRR, +S1, +S2. absent: Bradycardia, Tachycardia, Irregular Rhythm, JVD, +S4 - GI/Abdominal Exam GI & Abdominal Exam: Soft, Normal Bowel Sounds. absent: Distended, Firm, Rigid, Tenderness, Diminished Bowel Sounds, Hyperactive Bowel Sounds, Hypoactive Bowel Sounds - Extremities Exam Extremities Exam: Normal Capillary Refill, Normal Inspection. absent: Calf Tenderness, Pedal Edema, Tenderness - Back Exam Back Exam: absent: CVA tenderness (L), CVA tenderness (R) - Neurological Exam Neurological Exam: Alert, Awake, Oriented x3 Additional comments: awake and alert, moving all extremities spontaneously, following all commands appropriately - Psychiatric Exam Psychiatric exam: Normal Affect, Normal Mood - Skin Skin Exam: Dry, Intact, Normal Color, Warm Assessment and Plan - Assessment and Plan (Free Text) Assessment: This is a 77 yo F with PMH of HTN and prior CVA who presented for AMS, and was found to have pre-renal JOSE and rhabdomyolysis. Nephro consulted for the JOSE. Plan: 1) JOSE - resolved -likely pre-renal +/- rhabdomyolysis effect -Cr at 0.6-0.7, likely this is baseline -encourage regular oral intake -can stop IVF 2) Rhabdomyolysis - resolved -CPK wnl -can stop IVF, encourage oral intake 3) AMS - resolved -likely toxic metabolic encephalopathy as per Neuro -now resolved, AAOx3 today on exam Dispo: Med/Surg, pending further interventions/dispo as per primary team Ppx: SCDs for DVT Patient reviewed and discussed with attending, Dr. Guerra At this time, patient stable from Nephro standpoint, will sign off. Please call with any questions or concerns. <Jose Guerra - Last Filed: 03/23/18 21:45> Objective - Vital Signs/Intake and Output Vital Signs (last 24 hours): Temp Pulse Resp BP Pulse Ox 99.1 F 93 H 20 156/91 H 95 03/23/18 16:27 03/23/18 17:17 03/23/18 16:27 03/23/18 17:17 03/23/18 16:27 Intake and Output: 03/23/18 03/24/18 18:59 06:59 Intake Total 1260 Output Total 4 Balance 1256 - Medications Medications: Current Medications Amlodipine Besylate (Norvasc) 5 mg PO DAILY [facility] Last Admin: 03/23/18 09:52 Dose: 5 mg Aspirin (Aspirin Chewable) 81 mg PO DAILY [facility] Last Admin: 03/23/18 09:52 Dose: 81 mg Atorvastatin Calcium (Lipitor) 10 mg PO DIN [facility] Last Admin: 03/23/18 17:31 Dose: 10 mg Lisinopril (Zestril) 10 mg PO DAILY [facility] Last Admin: 03/23/18 14:54 Dose: 10 mg - Labs Labs: 03/23/18 04:59 03/23/18 04:59 Assessment and Plan - Assessment and Plan (Free Text) Plan: Pt seen and examined. I have reviewed the note of the emergency medical technician and agree with it. I have discussed the assessment and plan with the resident. I have reviewed the patient's labs and medications. Pt with JOSE that has resolved. Mild Rhabdomyolysis. Will sign off. Reconsult if needed.
--- NOTE | 2018-03-23 14:34 | CP.PCM.PN ---
Subjective - Date & Time of Evaluation Date of Evaluation: 03/23/18 Time of Evaluation: 08:00 - Subjective Subjective: Johnson Angelo, PGY-1 Progress Note for Hospitalist Service Patient seen and evaluated at bedside. No acute events reported overnight. Den ies chest pain, palpitations, confusion, blurry vision, numbness and tingling. Patient states she lives at home with mother. Objective - Vital Signs/Intake and Output Vital Signs (last 24 hours): Temp Pulse Resp BP Pulse Ox 97.7 F 76 20 110/62 96 03/23/18 08:42 03/23/18 09:52 03/23/18 08:42 03/23/18 09:52 03/23/18 08:42 - Medications Medications: Current Medications Amlodipine Besylate (Norvasc) 5 mg PO DAILY [facility] Last Admin: 03/23/18 09:52 Dose: 5 mg Aspirin (Aspirin Chewable) 81 mg PO DAILY [facility] Last Admin: 03/23/18 09:52 Dose: 81 mg Atorvastatin Calcium (Lipitor) 10 mg PO DIN [facility] Last Admin: 03/22/18 16:28 Dose: 10 mg - Labs Labs: 03/23/18 04:59 03/23/18 04:59 - Additional Findings Additional findings: - Constitutional Appears: No Acute Distress - Eye Exam Eye Exam: EOMI, PERRLA - ENT Exam ENT Exam: Mucous Membranes Dry - Neck Exam Neck Exam: Full ROM, non-tender to touch - Respiratory Exam Respiratory Exam: Clear to Auscultation Bilateral, NORMAL BREATHING PATTERN - Cardiovascular Exam Cardiovascular Exam: REGULAR RHYTHM, resolving tachycardia +S1, +S2, no murmurs, no rubs, no gallops - GI/Abdominal Exam GI & Abdominal Exam: Soft, Normal Bowel Sounds. absent: Tenderness - Extremities Exam Extremities Exam: no clubbing, no cyanosis, no edema - Neurological Exam Neurological Exam: Alert, Awake, orientated x 3, responds to verbal stimuli, occasionally answers appropriately - Psychiatric Exam Psychiatric exam: Normal Affect, Normal Mood - Skin Skin Exam: numerous seborrheic keratosis lesions on back Assessment and Plan - Assessment and Plan (Free Text) Assessment: Patient is a 77 year old female with a past medical history of HTN and CVA (2.5 years ago per patient) who was admitted for evaluation and treatment of altered mental status. Pending transfer to TCU pending insurance confirmation. Plan: Confusion - 03/19/2018 CT head without contrast- 1. There is generalized parenchymal atrophy noted as demonstrated by symmetrical dilatation of ventricles and sulci. 2. 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 3. No acute intracranial pathology. - 03/19/2018 EKG Normal sinus rhythm normal axis QTc [address] elevations - likely secondary to uremia 2/2 pre-renal flaco 2/2 dehydration - UA negative for UTI, no symptoms currently - UDS, salicylates, ETOH and Acetaminophen- reviewed and negative - TSH 0.29 and 0.16, free T3 2.41 (L), free T4 1.12 - patient has history of CVA - aspirin resumed - Lipitor 10 mg PO daily started as rhabdo has resolved - neuro consulted- recs appreciated Hx of HTN - patient's home meds confirmed - starting home amlodipine dose 5 mg PO daily - continue to monitor and restart remaining home meds lisinopril 10 mg daily and labetalol 300 mg BID as tolerated - restarted home dose Lisinopril 10 mg Anion Gap Metabolic Acidosis- resolved - AGMA with AG~ 26 likely secondary to uremia 2/2 pre-renal flaco 2/2 dehydration, resolved with gap 13 - bicarb 100mEq/1000 cc half NS followed by half normal NS @ 100cc/hr given - ivf discontinued FLACO - resolved - pre-renal in nature likely 2/2 dehydration - IVF discontinued - nephrology has signed off Rhabdomyolysis - resolved - Total CK 803 -> 437 -> 187> 115 Leukocytosis- resolved - UA and CXR- no signs of infection - likely reactive in nature - monitor with labs Prolonged QTc - avoid qtc prolonging agents Prophylaxis - DVT ppx- scds - GI ppx- famotidine Dispo: Pending TCU eval and insurance confirmation. Patient seen, case reviewed and plan approved by Dr. Garvin. Johnson Angelo, PGY-1
[2018-03-24 06:47] LABS: ALB/GLOB RATIO 1.2 (1.1-1.8); ALT/SGPT 27 U/L (7-56); AST/SGOT 28 U/L (14-36); BLOOD UREA NITROGEN 16 mg/dL (7-21); CALCIUM 8.8 mg/dL (8.4-10.5); GFR NON-AFRICAN AMERICAN > 60
[2018-03-24 07:08] LABS: BASO # 0.01 K/mm3 (0.0-2.0); BASO % 0.2 % (0.0-3.0); EOS # 0.1 (0.0-0.7); EOS % 1.5 % (1.5-5.0); GRAN # 4.51 (1.4-6.5); GRAN % 67.8 % (50.0-68.0); HEMOGLOBIN 11.7 g/dL (12.0-16.0); LYMPH # 1.3 (1.2-3.4); MEAN CELL VOLUME 85.6 fl (80.0-105.0); MEAN CORPUSCULAR HEMOGLOBIN 26.7 pg (25.0-35.0); MEAN CORPUSCULAR HGB CONC 31.2 g/dl (31.0-37.0); MEAN PLATELET VOLUME 9.4 fl (7.0-11.0); MONO # 0.7 (0.1-0.6); MONO % 10.5 % (1.0-6.0); RBC 4.38 10^6/uL (3.5-6.1); RED CELL DISTRIBUTION WIDTH 16.7 % (11.5-14.5); WHITE BLOOD COUNT 6.7 10^3/uL (4.5-11.0)
--- NOTE | 2018-03-24 09:18 | CP.PCM.DIS ---
Provider - Provider Date of Admission: 03/19/18 20:07 Attending physician: Edu Garvin MD Primary care physician: NO PRIMARY CARE PROVIDER Consults: Dr Mosqueda - Neuro Dr. Guerra - Nephro Dr. Mansfield - ICU Time Spent in preparation of Discharge (in minutes): 35 Hospital Course - Lab Results Lab Results: Micro Results 03/19/18 20:50 Blood Blood Culture - Preliminary NO GROWTH AFTER 4 DAYS 03/19/18 20:15 Blood Blood Culture - Preliminary NO GROWTH AFTER 4 DAYS 03/19/18 20:39 Urine Urine Culture - Final No Growth (<1,000 CFU/ML) 03/19/18 21:40 Naris MRSA Culture (Admit) - Final MRSA NOT DETECTED Most Recent Lab Values WBC 6.7 10^3/uL (4.5-11.0) 03/24/18 06:00 RBC 4.38 10^6/uL (3.5-6.1) 03/24/18 06:00 Hgb 11.7 g/dL (12.0-16.0) L 03/24/18 06:00 Hct 37.5 % (36.0-48.0) 03/24/18 06:00 MCV 85.6 fl (80.0-105.0) 03/24/18 06:00 MCH 26.7 pg (25.0-35.0) 03/24/18 06:00 MCHC 31.2 g/dl (31.0-37.0) 03/24/18 06:00 RDW 16.7 % (11.5-14.5) H 03/24/18 06:00 Plt Count 301 10^3/uL (120.0-450.0) 03/24/18 06:00 MPV 9.4 fl (7.0-11.0) 03/24/18 06:00 Gran % 67.8 % (50.0-68.0) 03/24/18 06:00 Lymph % (Auto) 20.0 % (22.0-35.0) L 03/24/18 06:00 [place] % (Auto) 10.5 % (1.0-6.0) H 03/24/18 06:00 Eos % (Auto) 1.5 % (1.5-5.0) 03/24/18 06:00 Baso % (Auto) 0.2 % (0.0-3.0) 03/24/18 06:00 Gran # 4.51 (1.4-6.5) 03/24/18 06:00 Lymph # (Auto) 1.3 (1.2-3.4) 03/24/18 06:00 [place] # (Auto) 0.7 (0.1-0.6) H 03/24/18 06:00 Eos # (Auto) 0.1 (0.0-0.7) 03/24/18 06:00 Baso # (Auto) 0.01 K/mm3 (0.0-2.0) 03/24/18 06:00 Neutrophils % (Manual) 86 % (50.0-70.0) H 03/19/18 18:42 Lymphocytes % (Manual) 13 % (22.0-35.0) L 03/19/18 18:42 Monocytes % (Manual) 1 % (1.0-6.0) 03/19/18 18:42 Platelet Evaluation Normal (NORMAL) 03/19/18 18:42 pCO2 23 mm/Hg (35-45) L 03/19/18 19:24 pO2 95.0 mm/Hg (80-100) 03/19/18 19:24 HCO3 9.0 mmol/L (21-28) L* 03/19/18 19:24 ABG pH 7.20 (7.35-7.45) L 03/19/18 19:24 ABG Total CO2 9.7 mmol.L (22-28) L 03/19/18 19:24 ABG O2 Saturation 97.8 % (95-98) 03/19/18 19:24 ABG Base Excess -17.2 mmol/L (-2.0-3.0) L 03/19/18 19:24 ABG Potassium 3.2 mmol/L (3.6-5.2) L 03/19/18 19:24 Sodium 140.0 mmol/L (132-148) 03/19/18 19:24 Chloride 104.0 mmol/L (98-107) 03/19/18 19:24 Glucose 85 mg/dl (65-105) 03/19/18 19:24 Lactate 0.7 mmol/L (0.7-2.1) 03/19/18 19:24 FiO2 21.0 % 03/19/18 19:24 Sodium 141 mmol/L (132-148) 03/24/18 06:00 Potassium 3.8 mmol/L (3.6-5.0) 03/24/18 06:00 Chloride 105 mmol/L (98-107) 03/24/18 06:00 Carbon Dioxide 25 mmol/L (21-33) 03/24/18 06:00 Anion Gap 15 (10-20) 03/24/18 06:00 BUN 16 mg/dL (7-21) 03/24/18 06:00 Creatinine 0.8 mg/dl (0.7-1.2) 03/24/18 06:00 Est GFR ( Amer) > 60 03/24/18 06:00 Est GFR (Non-Af Amer) > 60 03/24/18 06:00 POC Glucose (mg/dL) 86 mg/dL (65-110) 03/19/18 17:28 Random Glucose 106 mg/dL (70-110) 03/24/18 06:00 Hemoglobin A1c 5.8 % (4.2-6.5) 03/19/18 19:00 Calcium 8.8 mg/dL (8.4-10.5) 03/24/18 06:00 Phosphorus 2.3 mg/dL (2.5-4.5) L 03/20/18 05:30 Magnesium 2.0 mg/dL (1.7-2.2) 03/20/18 05:30 Total Bilirubin 0.5 mg/dL (0.2-1.3) 03/24/18 06:00 AST 28 U/L (14-36) 03/24/18 06:00 ALT 27 U/L (7-56) 03/24/18 06:00 Alkaline Phosphatase 110 U/L (38-126) 03/24/18 06:00 Lactate Dehydrogenase 705 U/L (333-699) H 03/19/18 18:42 Total Creatine Kinase 115 U/L (35-230) 03/23/18 04:59 CK-MB (CK-2) 2.7 ng/mL (0.0-3.6) 03/21/18 05:45 CK-MB (CK-2) % 0.7 % (2.5-3.0) L 03/20/18 05:30 Troponin I 0.02 ng/mL D 03/20/18 02:40 Total Protein 7.2 g/dL (5.8-8.3) 03/24/18 06:00 Albumin 4.0 g/dL (3.0-4.8) 03/24/18 06:00 Globulin 3.3 gm/dL 03/24/18 06:00 Albumin/Globulin Ratio 1.2 (1.1-1.8) 03/24/18 06:00 Triglycerides 204 mg/dL (35-160) H 03/19/18 19:00 Cholesterol 241 mg/dL (130-200) H 03/19/18 19:00 LDL Cholesterol Direct 158 mg/dL (0-129) H 03/19/18 19:00 HDL Cholesterol 45 mg/dL (29-60) 03/19/18 19:00 Procalcitonin 0.10 NG/ML (0.19-0.49) L 03/19/18 22:46 Free T4 1.12 ng/dL (0.78-2.19) 03/20/18 08:00 Free T3 pg/mL 2.41 pg/mL (2.77-5.27) L 03/20/18 08:00 TSH 3rd Generation 0.16 mIU/mL (0.46-4.68) L 03/20/18 08:00 Arterial Blood Potassium 3.2 mmol/L (3.6-5.2) L 03/19/18 19:24 Urine Color Yellow (YELLOW) 03/19/18 20:39 Urine Appearance Clear (CLEAR) 03/19/18 20:39 Urine pH 6.0 (4.7-8.0) 03/19/18 20:39 Ur Specific [place] >= 1.030 (1.005-1.035) 03/19/18 20:39 Urine Protein 30 mg/dL (<30 mg/dL) H 03/19/18 20:39 Urine Glucose (UA) Negative mg/dL (NEGATIVE) 03/19/18 20:39 Urine Ketones >=80 mg/dL (NEGATIVE) 03/19/18 20:39 Urine Blood Large (NEGATIVE) H 03/19/18 20:39 Urine Nitrate Negative (NEGATIVE) 11/22/18 20:39 Urine Bilirubin Moderate (NEGATIVE) H 03/19/18 20:39 Urine Urobilinogen 0.2 E.U./dL (<1 E.U./dL) 03/19/18 20:39 Ur Leukocyte Esterase Negative Kary/uL (NEGATIVE) 03/19/18 20:39 Urine RBC 10 - 15 /hpf (0-2) 03/19/18 20:39 Urine WBC 0 - 2 /hpf (0-6) 03/19/18 20:39 Ur Epithelial Cells 0 - 2 /hpf (0-5) 03/19/18 20:39 Urine Bacteria Neg (NEG) 03/19/18 20:39 Salicylates 3 mg/dL (2.0-20.0) 03/19/18 18:42 Urine Opiates Screen Negative (NEGATIVE) 03/19/18 20:39 Urine Methadone Screen Negative (NEGATIVE) 03/19/18 20:39 Acetaminophen < 10.0 ug/ml (10.0-20.0) L 03/19/18 18:42 Ur Barbiturates Screen Negative (NEGATIVE) 03/19/18 20:39 Ur Phencyclidine Scrn Negative (NEGATIVE) 03/19/18 20:39 Ur Amphetamines Screen Negative (NEGATIVE) 03/19/18 20:39 U Benzodiazepines Scrn Negative (NEGATIVE) 03/19/18 20:39 U Oth Cocaine Metabols Negative (NEGATIVE) 03/19/18 20:39 U Cannabinoids Screen Negative (NEGATIVE) 03/19/18 20:39 Alcohol, Quantitative < 10 mg/dL (0-10) 03/19/18 18:42 Discharge Exam - Head Exam Head Exam: ATRAUMATIC, NORMAL INSPECTION, NORMOCEPHALIC Discharge Plan - Follow Up Plan Condition: CRITICAL Disposition: HOME/ ROUTINE Instructions: Altered Mental Status (DC), Delirium (Confusion) (DC) Additional Instructions: Please follow up in [facility] on 04/06 at 3 pm. Please come at 2:30 pm with photo ID, scripts, and insurance information. Please take all medications as prescribed. Should symptoms worsen or reoccur, please visit nearest emergency department. Referrals: Jose Guerra MD [Staff Provider] - PCP,NO [Primary Care Provider] - Ronni Mosqueda MD [Staff Provider] -
--- NOTE | 2018-03-24 12:57 | CP.PCM.PN ---
Subjective - Date & Time of Evaluation Date of Evaluation: 03/24/18 Time of Evaluation: 08:00 - Subjective Subjective: Johnson Angelo, PGY-1 Progress Note for Hospitalist Service Patient seen and evaluated at bedside. No acute events reported overnight. De nies chest pain, palpitations, confusion, blurry vision, numbness and tingling. Patient is AAOx2 but believes she lives at home with her mother. Seems to be at baseline. Objective - Vital Signs/Intake and Output Vital Signs (last 24 hours): Temp Pulse Resp BP Pulse Ox 98.5 F 85 18 157/83 H 98 03/24/18 08:22 03/24/18 09:39 03/24/18 08:22 03/24/18 09:39 03/24/18 08:22 Intake and Output: 03/24/18 03/24/18 06:59 18:59 Intake Total 120 Balance 120 - Medications Medications: Current Medications Amlodipine Besylate (Norvasc) 10 mg PO DAILY [facility] Last Admin: 03/24/18 09:39 Dose: 10 mg Aspirin (Aspirin Chewable) 81 mg PO DAILY [facility] Last Admin: 03/24/18 09:37 Dose: 81 mg Atorvastatin Calcium (Lipitor) 10 mg PO DIN [facility] Last Admin: 03/23/18 17:31 Dose: 10 mg Lisinopril (Zestril) 20 mg PO DAILY [facility] Last Admin: 03/24/18 09:39 Dose: 20 mg - Labs Labs: 03/24/18 06:00 03/24/18 06:00 - Additional Findings Additional findings: - Constitutional Appears: No Acute Distress - Eye Exam Eye Exam: EOMI, PERRLA - ENT Exam ENT Exam: Mucous Membranes Dry - Neck Exam Neck Exam: Full ROM, non-tender to touch - Respiratory Exam Respiratory Exam: Clear to Auscultation Bilateral, NORMAL BREATHING PATTERN - Cardiovascular Exam Cardiovascular Exam: REGULAR RHYTHM, resolving tachycardia +S1, +S2, no murmurs, no rubs, no gallops - GI/Abdominal Exam GI & Abdominal Exam: Soft, Normal Bowel Sounds. absent: Tenderness - Extremities Exam Extremities Exam: no clubbing, no cyanosis, no edema - Neurological Exam Neurological Exam: Alert, Awake, orientated x 3, responds to verbal stimuli, occasionally answers appropriately - Psychiatric Exam Psychiatric exam: Normal Affect, Normal Mood - Skin Skin Exam: numerous seborrheic keratosis lesions on back Assessment and Plan - Assessment and Plan (Free Text) Assessment: Patient is a 77 year old female with a past medical history of HTN and CVA (2.5 years ago per patient) who was admitted for evaluation and treatment of altered mental status. Pending transfer to TCU vs Home with services pending accpeting family member. Plan: Confusion - 03/19/2018 CT head without contrast- 1. There is generalized parenchymal atrophy noted as demonstrated by symmetrical dilatation of ventricles and sulci. 2. 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 3. No acute intracranial pathology. - 03/19/2018 EKG Normal sinus rhythm normal axis QTc [address] elevations - likely secondary to uremia 2/2 pre-renal flaco 2/2 dehydration - UA negative for UTI, no symptoms currently - UDS, salicylates, ETOH and Acetaminophen- reviewed and negative - TSH 0.29 and 0.16, free T3 2.41 (L), free T4 1.12 - patient has history of CVA - aspirin resumed - Lipitor 10 mg PO daily started as rhabdo has resolved - neuro consulted- recs appreciated Hx of HTN - patient's home meds confirmed - home amlodipine dose 5 mg PO daily - Currently labetalol 300 mg BID on hold, will utilize if pressures remain elevated - Increased home dose Lisinopril 10 mg to 20 mg, continue to monitor Anion Gap Metabolic Acidosis- resolved - AGMA with AG~ 26 likely secondary to uremia 2/2 pre-renal flaco 2/2 dehydration, resolved with gap 13 - bicarb 100mEq/1000 cc half NS followed by half normal NS @ 100cc/hr given - IVF discontinued FLACO - resolved - pre-renal in nature likely 2/2 dehydration - IVF discontinued - nephrology has signed off Rhabdomyolysis - resolved - Total CK 803 -> 437 -> 187> 115 Leukocytosis- resolved - UA and CXR- no signs of infection - likely reactive in nature - monitor with labs Prolonged QTc - avoid qtc prolonging agents Prophylaxis - DVT ppx- scds - GI ppx- famotidine Dispo: Pending Rehab placement [facility] vs outpatient rehab. Patient seen, case reviewed and plan approved by Dr. Garvin. Johnson Angelo, PGY-1
--- NOTE | 2018-03-25 14:26 | CP.PCM.PN ---
Subjective - Date & Time of Evaluation Date of Evaluation: 03/25/18 Time of Evaluation: 08:00 - Subjective Subjective: Johnson Angelo, PGY-1 Progress Note for Hospitalist Service Patient seen and evaluated at bedside. No acute events reported overnight. Den ies chest pain, palpitations, confusion, blurry vision, numbness and tingling. Patient states she lives at home with mother, although mother passed 3 years ago. Objective - Vital Signs/Intake and Output Vital Signs (last 24 hours): Temp Pulse Resp BP Pulse Ox 98.4 F 89 19 142/79 95 03/25/18 06:00 03/25/18 09:10 03/25/18 06:00 03/25/18 09:11 03/25/18 06:00 - Medications Medications: Current Medications Amlodipine Besylate (Norvasc) 10 mg PO DAILY [facility] Last Admin: 03/25/18 09:11 Dose: 10 mg Aspirin (Aspirin Chewable) 81 mg PO DAILY [facility] Last Admin: 03/25/18 09:11 Dose: 81 mg Atorvastatin Calcium (Lipitor) 10 mg PO DIN [facility] Last Admin: 03/24/18 17:30 Dose: 10 mg Lisinopril (Zestril) 20 mg PO DAILY [facility] Last Admin: 03/25/18 09:10 Dose: 20 mg - Labs Labs: 03/24/18 06:00 03/24/18 06:00 - Additional Findings Additional findings: - Constitutional Appears: No Acute Distress - Eye Exam Eye Exam: EOMI, PERRLA - ENT Exam ENT Exam: Mucous Membranes Dry - Neck Exam Neck Exam: Full ROM, non-tender to touch - Respiratory Exam Respiratory Exam: Clear to Auscultation Bilateral, NORMAL BREATHING PATTERN - Cardiovascular Exam Cardiovascular Exam: REGULAR RHYTHM, resolving tachycardia +S1, +S2, no murmurs, no rubs, no gallops - GI/Abdominal Exam GI & Abdominal Exam: Soft, Normal Bowel Sounds. absent: Tenderness - Extremities Exam Extremities Exam: no clubbing, no cyanosis, no edema - Neurological Exam Neurological Exam: Alert, Awake, orientated x 3, responds to verbal stimuli, occasionally answers appropriately - Psychiatric Exam Psychiatric exam: Normal Mood - Skin Skin Exam: numerous seborrheic keratosis lesions on back Assessment and Plan - Assessment and Plan (Free Text) Assessment: Patient is a 77 year old female with a past medical history of HTN and CVA (2.5 years ago per patient) who was admitted for evaluation and treatment of altered mental status. Pending transfer to TCU pending insurance confirmation. Plan: Confusion - 03/19/2018 CT head without contrast- 1. There is generalized parenchymal atrophy noted as demonstrated by symmetrical dilatation of ventricles and sulci. 2. 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 3. No acute intracranial pathology. - 03/19/2018 EKG Normal sinus rhythm normal axis QTc [address] elevations - likely secondary to uremia 2/2 pre-renal flaco 2/2 dehydration - UA negative for UTI, no symptoms currently - UDS, salicylates, ETOH and Acetaminophen- reviewed and negative - TSH 0.29 and 0.16, free T3 2.41 (L), free T4 1.12 - patient has history of CVA - aspirin resumed - Lipitor 10 mg PO daily started as rhabdo has resolved - neuro consulted- Dr. Panda thompson - f/u MRI brain without contrast - f/u Vit B12, folate and RPR Hx of HTN - patient's home meds confirmed - starting home amlodipine dose 5 mg PO daily - continue to monitor and restart remaining home meds lisinopril 10 mg daily and labetalol 300 mg BID as tolerated - restarted home dose Lisinopril 10 mg Anion Gap Metabolic Acidosis- resolved - AGMA with AG~ 26 likely secondary to uremia 2/2 pre-renal flaco 2/2 dehydration, resolved with gap 13 - bicarb 100mEq/1000 cc half NS followed by half normal NS @ 100cc/hr given - ivf discontinued FLACO - resolved - pre-renal in nature likely 2/2 dehydration - IVF discontinued - nephrology has signed off Rhabdomyolysis - resolved - Total CK 803 -> 437 -> 187> 115 Leukocytosis- resolved - UA and CXR- no signs of infection - likely reactive in nature - monitor with labs Prolonged QTc - avoid qtc prolonging agents Prophylaxis - DVT ppx- scds - GI ppx- famotidine Dispo: Pending insurance and rehab plan. PT recommends [facility]. Patient seen, case reviewed and plan approved by Dr. Garvin. Johnson Angelo, PGY-1
[2018-03-26 08:17] VITALS: BP 125/72; PULSE 81; RESP 20; TEMP 97.9; O2SAT 97
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
[2018-03-26] MEDS ORDERED: Enoxaparin 40 mg Syringe SC SCH (11:45)
--- NOTE | 2018-03-26 14:54 | CP.PCM.PN ---
Subjective - Date & Time of Evaluation Date of Evaluation: 03/26/18 Time of Evaluation: 08:15 - Subjective Subjective: Johnson Angelo, PGY-1 Progress Note for Hospitalist Service Patient seen and evaluated at bedside. No acute events reported overnight. Den ies chest pain, palpitations, confusion, blurry vision, numbness and tingling. Patient awaiting placement per SW. Objective - Vital Signs/Intake and Output Vital Signs (last 24 hours): Temp Pulse Resp BP Pulse Ox 97.9 F 81 20 125/72 97 03/26/18 06:00 03/26/18 10:26 03/26/18 06:00 03/26/18 10:28 03/26/18 06:00 - Medications Medications: Current Medications Amlodipine Besylate (Norvasc) 10 mg PO DAILY [facility] Last Admin: 03/26/18 10:28 Dose: 10 mg Aspirin (Aspirin Chewable) 81 mg PO DAILY [facility] [place] Last Admin: 03/26/18 10:28 Dose: 81 mg Atorvastatin Calcium (Lipitor) 10 mg PO DIN [facility] [place] Last Admin: 03/25/18 18:13 Dose: 10 mg Enoxaparin Sodium (Lovenox) 40 mg SC DAILY [facility] [place]; Protocol Last Admin: 03/26/18 12:40 Dose: 40 mg Lisinopril (Zestril) 20 mg PO DAILY [facility] [place] Last Admin: 03/26/18 10:26 Dose: 20 mg - Labs Labs: 03/24/18 06:00 03/24/18 06:00 - Additional Findings Additional findings: - Constitutional Appears: No Acute Distress - Eye Exam Eye Exam: EOMI, PERRLA - ENT Exam ENT Exam: Mucous Membranes Dry - Neck Exam Neck Exam: Full ROM, non-tender to touch - Respiratory Exam Respiratory Exam: Clear to Auscultation Bilateral, NORMAL BREATHING PATTERN - Cardiovascular Exam Cardiovascular Exam: REGULAR RHYTHM, resolving tachycardia +S1, +S2, no murmurs, no rubs, no gallops - GI/Abdominal Exam GI & Abdominal Exam: Soft, Normal Bowel Sounds. absent: Tenderness - Extremities Exam Extremities Exam: no clubbing, no cyanosis, no edema - Neurological Exam Neurological Exam: Alert, Awake, orientated x 3, responds to verbal stimuli, occasionally answers appropriately - Psychiatric Exam Psychiatric exam: Normal Mood - Skin Skin Exam: numerous seborrheic keratosis lesions on back Assessment and Plan - Assessment and Plan (Free Text) Assessment: Patient is a 77 year old female with a past medical history of HTN and CVA (2.5 years ago per patient) who was admitted for evaluation and treatment of altered mental status. Pending transfer to TCU pending insurance confirmation. Plan: Confusion - 03/19/2018 CT head without contrast- 1. There is generalized parenchymal atrophy noted as demonstrated by symmetrical dilatation of ventricles and sulci. 2. 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 3. No acute intracranial pathology. - 03/19/2018 EKG Normal sinus rhythm normal axis QTc [address] elevations - likely secondary to uremia 2/2 pre-renal flaco 2/2 dehydration - UA negative for UTI, no symptoms currently - UDS, salicylates, ETOH and Acetaminophen- reviewed and negative - TSH 0.29 and 0.16, free T3 2.41 (L), free T4 1.12 - patient has history of CVA - aspirin resumed - Lipitor 10 mg PO daily started as rhabdo has resolved - neuro consulted- Dr. Panda thompson - MRI brain without contrast was negative, no hemmorhage, chronic microvascular changes - f/u RPR - B12 406 - Folate pending Hx of HTN - patient's home meds confirmed - starting home amlodipine dose 5 mg PO daily - continue to monitor and restart remaining home meds lisinopril 10 mg daily and labetalol 300 mg BID as tolerated - restarted home dose Lisinopril 10 mg Anion Gap Metabolic Acidosis- resolved - AGMA with AG~ 26 likely secondary to uremia 2/2 pre-renal flaco 2/2 dehydration, resolved with gap 13 - bicarb 100mEq/1000 cc half NS followed by half normal NS @ 100cc/hr given - ivf discontinued FLACO - resolved - pre-renal in nature likely 2/2 dehydration - IVF discontinued - nephrology has signed off Rhabdomyolysis - resolved - Total CK 803 -> 437 -> 187> 115 Leukocytosis- resolved - UA and CXR- no signs of infection - likely reactive in nature - monitor with labs Prolonged QTc - avoid qtc prolonging agents Prophylaxis - DVT ppx- scds - GI ppx- famotidine Dispo: Pending insurance and rehab plan. PT recommends [facility]. Patient seen, case reviewed and plan approved by Dr. Garvin. Johnson Angelo, PGY-1
[2018-03-26 15:07] LABS: FOLATE 16.3 ng/mL
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
== END 2018-03-26 18:29 | disposition home or self-care (01) | DRG 682 ==
LOC: ED 17:22 → ERH 20:07 → ICU 21:07 → CCU 03-22 09:41 → 3RNO 03-23 05:27
PROVIDERS: ADMIT Internal Medicine; ATTEND Internal Medicine
DX: N17.9 Acute kidney failure, unspecified (principal); G92 Toxic encephalopathy; E87.2 Acidosis; M62.82 Rhabdomyolysis; I10 Essential (primary) hypertension; E86.0 Dehydration; D72.829 Elevated white blood cell count, unspecified; E87.6 Hypokalemia; Z86.73 Personal history of transient ischemic attack (TIA), and cerebral infarction without residual deficits; Z87.891 Personal history of nicotine dependence; Z91.83 Wandering in diseases classified elsewhere

== ENCOUNTER 2018-07-18 18:59 | Inpatient (IN) | payer MEDICARE, OTHER ==
--- NOTE | 2018-07-18 19:52 | ED PDOC ---
Arrival/HPI - General Chief Complaint: Altered Mental Status Time Seen by Provider: 07/18/18 19:10 Historian: Patient, Other (neighbor) - History of Present Illness Narrative History of Present Illness (Text): 07/18/18 19:52 77 year old F with a pmh of hypertension, hyperlipidemia, and dementia presents via ems with cc of confusion. Per neighbor, patient was half naked and confused today walking around neighbor's house asking about location of her mother(patient's mother). According to the neighbor, the patient's mother has been for awhile. Patient currently states that she is fine and is able to clearly answer questions. Patient lives alone. Patient denies any fevers, chills, headache, dizziness, chest pain, shortness of breath, dyspnea on exertion, cough, diaphoresis, abdominal pain, nausea, vomiting, diarrhea, back pain, neck pain, or any other complaint. Time/Duration: Prior to Arrival Symptom Onset: Sudden Symptom Course: Unchanged Activities at Onset: Light Context: Walking Past Medical History - Provider Review Nursing Documentation Reviewed: Yes - Infectious Disease Hx of Infectious Diseases: None - Cardiac Hx Cardiac Disorders: Yes - Pulmonary Hx Respiratory Disorders: No - Neurological HX Cerebrovascular Accident: Yes - HEENT Hx HEENT Disorder: No - Renal Hx Renal Disorder: No - Endocrine/Metabolic Hx Endocrine Disorders: No - Hematological/Oncological Hx Blood Disorders: No - Integumentary Hx Dermatological Disorder: No - Musculoskeletal/Rheumatological Hx Musculoskeletal Disorders: No - Gastrointestinal Hx Gastrointestinal Disorders: No - Genitourinary/Gynecological Hx Genitourinary Disorders: No - Psychiatric Hx Psychophysiologic Disorder: Yes Hx Depression: Yes Hx Substance Use: No - Surgical History Hx Cholecystectomy: Yes Hx Hysterectomy: Yes Family/Social History - Physician Review Nursing Documentation Reviewed: Yes Family/Social History: Unknown Family HX Smoking Status: Former Smoker Hx Alcohol Use: No Hx Substance Use: No Allergies/Home Meds Allergies/Adverse Reactions: Allergies No Known Allergies Allergy (Verified 07/18/18 19:32) Home Medications: Home Meds Medication Instructions Recorded Confirmed Lisinopril [Zestril] 10 mg PO 03/21/18 amLODIPine [Norvasc] 5 mg PO 03/21/18 Review of Systems - Physician Review All systems were reviewed & negative as marked: Yes - Review of Systems Constitutional: Normal Eyes: Normal ENT: Normal Respiratory: Normal Cardiovascular: Normal Gastrointestinal: Normal Genitourinary Female: Normal Musculoskeletal: Normal Skin: Normal Neurological: Other (confused) Endocrine: Normal Hemo/Lymphatic: Normal Psychiatric: Normal Physical Exam Vital Signs Reviewed: Yes Vital Signs Temp Pulse Resp BP Pulse Ox 07/18/18 19:33 210/119 H 07/18/18 19:32 97.7 F 93 H 18 204/110 H 98 Temperature: Afebrile Blood Pressure: Hypertensive Pulse: Tachycardic Respiratory Rate: Normal Appearance: Positive for: Well-Appearing, Non-Toxic, Comfortable Pain Distress: None Mental Status: Positive for: Confused, other (A&O x2) Finger Stick Blood Glucose: 87 - Systems Exam Head: Present: Atraumatic, Normocephalic Pupils: Present: PERRL Extroacular Muscles: Present: EOMI Conjunctiva: Present: Normal Mouth: Present: Moist Mucous Membranes Neck: Present: Normal Range of Motion Respiratory/Chest: Present: Clear to Auscultation, Good Air Exchange. No: Respiratory Distress, Accessory Muscle Use Cardiovascular: Present: Tachycardic. No: Murmurs Abdomen: No: Tenderness, Distention, Peritoneal Signs Back: Present: Normal Inspection Upper Extremity: Present: Other (Old ecchymosis bruise on left foot). No: Cyanosis, Edema Lower Extremity: Present: Normal Inspection, Other. No: Edema Neurological: Present: GCS=15, Speech Normal Skin: Present: Warm, Dry, Normal Color. No: Rashes Psychiatric: Present: Alert, Other (Asking about location of mother, looks confused). No: Oriented x 3 (Ox2) Medical Decision Making ED Course and Treatment: 07/18/18 20:03 Impression: 77 year old presents via ems with cc of confusion. Differential Diagnosis included but are not limited to: --Encephalopathy --AMS --Cerebral bleed --Dementia Plan: --Labs --CT: Head w/o contrast --EKG --CXR --Catapres --UA -- Reassess and disposition Prior Visits: Notes and results from previous visits were reviewed. Progress Notes: EKG shows NSR at 92 BPM with non-specific ST/T changes. Interpreted by me. CXR Impression: As read by me, no acute process. EXAM: CT Head without Intravenous Contrast. Electronically signed on Jul 18, 2018 11:02:36 PM EDT by: Sajan Amador M.D. IMPRESSION: 1. No acute intracranial abnormality. 2. Mild age-appropriate cerebral/cerebellar atrophy. 3. Mild chronic microvascular disease. 4. Changes involving the right globe as described above. Ophthalmic consultation could be considered. 07/19/18 00:[address] Reynold Bautista who is aware and agrees with the plan. Accepts patient into his service. Request Dr. Richardson and Dr. Byers for consult. - Lab Interpretations I have reviewed the lab results: Yes - RAD Interpretation Radiology Orders: 07/18/18 19:35 HEAD W/O CONTRAST [CT] Stat 07/18/18 19:36 CHEST PORTABLE [RAD] Stat [place] [facility] Supervisor: ED Physician - EKG Interpretation Interpreted by ED Physician: Yes Type: 12 lead EKG - Medication Orders Current Medication Orders: Discontinued Medications Clonidine HCl (Catapres) 0.2 mg PO STAT STA Stop: 07/18/18 19:38 - PA / 3RD MATE / Resident Statement MD/DO has reviewed & agrees with the documentation as recorded. - Scribe Statement The provider has reviewed the documentation as recorded by the Shayy Whitmore All medical record entries made by the Shayy were at my direction and personally dictated by me. I have reviewed the chart and agree that the record accurately reflects my personal performance of the history, physical exam, [facility] decision making, and the department course for this patient. I have also personally directed, reviewed, and agree with the discharge instructions and disposition. Disposition/Present on Arrival - Present on Arrival Any Indicators Present on Arrival: No History of DVT/PE: No History of Uncontrolled Diabetes: No Urinary Catheter: No History of Decub. Ulcer: No History Surgical Site Infection Following: None - Disposition Have Diagnosis and Disposition been Completed?: Yes Diagnosis: Altered mental status, Hypokalemia Disposition: HOSPITALIZED Disposition Time: 00:24 Patient Problems: Current Active Problems Problem Status Onset Altered mental status Acute Hypokalemia Acute Condition: STABLE Referrals: PCP,NO [Primary Care Provider] - Follow up with primary Forms: [employer] (Malaysian)
[2018-07-18 20:39] LABS: INR 1.16; PARTIAL THROMBOPLASTIN TIME 33.6 Seconds (26.9-38.3); PROTHROMBIN TIME 12.9 SECONDS (9.4-12.5)
[2018-07-18 20:40] LABS: HEMOGLOBIN 12.6 g/dL (12.0-16.0); MEAN CELL VOLUME 86.3 fl (80.0-105.0); MEAN CORPUSCULAR HEMOGLOBIN 26.9 pg (25.0-35.0); RBC 4.68 10^6/uL (3.5-6.1); WHITE BLOOD COUNT 12.1 10^3/uL (4.5-11.0)
[2018-07-18 20:41] LABS: MEAN CORPUSCULAR HGB CONC 31.2 g/dl (31.0-37.0); MEAN PLATELET VOLUME 9.5 fl (7.0-11.0); RED CELL DISTRIBUTION WIDTH 15.2 % (11.5-14.5)
[2018-07-18 21:20] LABS: TROPONIN I 0.02 ng/mL
[2018-07-18 21:32] LABS: ALB/GLOB RATIO 1.3 (1.1-1.8); ALBUMIN 4.6 g/dL (3.0-4.8); CALCIUM 9.3 mg/dL (8.4-10.5)
[2018-07-18] MEDS ORDERED: Potassium Chloride 20 mEq 100 ML IV ONE (21:40)
--- NOTE | 2018-07-18 22:31 | RAD ---
Date of service: 07/18/2018 HISTORY: medical clearance COMPARISON: 03/19/2018 FINDINGS: LUNGS: The lungs are hyperinflated and there is peribronchial thickening with chronic changes in both lungs. There is linear atelectasis/scarring in the left lower lobe. PLEURA: No pleural effusions or pneumothorax. CARDIOVASCULAR: The heart is normal in size. There are aortic atherosclerotic calcifications present. OSSEOUS STRUCTURES: Within normal limits for the patient's age. VISUALIZED UPPER ABDOMEN: Normal. OTHER FINDINGS: None. IMPRESSION: No active pulmonary disease. COPD.
[2018-07-19 02:28] VITALS: BMI 20.7
--- NOTE | 2018-07-19 08:38 | CT ---
Date of service: 07/18/2018 PROCEDURE: CT HEAD WITHOUT CONTRAST. HISTORY: Confusion COMPARISON: 03/19/2018. TECHNIQUE: Axial computed tomography images were obtained through the head/brain without intravenous contrast. Radiation dose: Total exam DLP = 978.61 mGy-cm. This CT exam was performed using one or more of the following dose reduction techniques: Automated exposure control, adjustment of the mA and/or kV according to patient size, and/or use of iterative reconstruction technique. FINDINGS: HEMORRHAGE: No intracranial hemorrhage. BRAIN: There are mild chronic microangiopathic changes. There is no mass, mass effect or abnormal extra-axial fluid collection. There is no territorial infarction. The midline sagittal structures are normal. VENTRICLES: The ventricles are normal in size, shape and configuration. CALVARIUM: There is no calvarial fracture or extracranial soft tissue swelling. PARANASAL SINUSES: Predominantly clear. MASTOID AIR CELLS: Predominantly clear. OTHER FINDINGS: There are postsurgical changes in the right globe. IMPRESSION: No acute intracranial abnormality. Mild chronic microangiopathic changes. A preliminary report was provided by [facility].
[2018-07-19 10:53] LABS: BLOOD UREA NITROGEN 16 mg/dL (7-21); GFR NON-AFRICAN AMERICAN > 60
[2018-07-19] MEDS: Potassium Chloride 20 mEq ER Tab PO SCH ×4 (11:05→22:40)
[2018-07-19] MEDS ORDERED: Potassium Chloride 40 mEq/30 ml LIQ UD PO ONE (12:27)
--- NOTE | 2018-07-19 12:30 | CP.PCM.PCO ---
Assessment/Plan - Assessment and Plan (Free Text) Plan: Pt cannot tolerate IV potassium due to burning. Switch to PO KC1. Recheck BMP at 5pm.
--- NOTE | 2018-07-19 17:07 | CARD ---
APPROVED REPORT Date of service: 07/18/2018 EKG Measurement Heart [id number] <Conclusion> Normal sinus rhythm Nonspecific ST and T wave abnormality Prolonged QT Abnormal ECG
[2018-07-19 17:08] LABS: BLOOD UREA NITROGEN 14 mg/dL (7-21); CALCIUM 8.5 mg/dL (8.4-10.5); GFR NON-AFRICAN AMERICAN > 60
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
--- NOTE | 2018-07-20 01:07 | HP ---
DATE OF EXAM: 07/19/2018 CHIEF COMPLAINT: Altered mental status, confusion, found walking in the halls of her apartment and bizarre behavior. HISTORY OF PRESENT ILLNESS: This is a 77-year-old woman who I last saw several years ago when her mother passed. The patient was living in [place], [place], but then moved to her mother's apartment in [place] after her mother's passing [id number]. Apparently, there was a rift in the family and the patient intentionally dropped all communications with her daughter. I have not seen the patient in several years. A review of the medical record shows that she was hospitalized in 02/2018, with altered mental status and a detailed workup including Psychiatry and Neurology consultation as well as CT scans, MRI, etc. PAST MEDICAL HISTORY: I am aware of is hypertension and a stroke, which I believe was a hemorrhagic [id number]/ 2015, the patient had while in [place], [place] at which time she stayed in her room for approximately four days before she was discovered. A review of the old records shows she is also status post cholecystectomy 1999 and tonsilectomy as a child. The remainder of history is limited. SOCIAL HISTORY: She does have a history of tobacco use as well as alcohol use in the past, but denied other drugs. Quit smoking 01/2015 MEDICATIONS: She states she no longer takes the medications for her blood pressure because her medicines ran out since last prescribed. In 2016 she was taking Lisinopril 20, Atorvastatin 40, Labetalol 300 bid, and Amlodipine 5mg. ALLERGIES: SHE HAS NO KNOWN ALLERGIES. FAMILY HISTORY: Mother, Rosalinda Garcia, 2016 age 94. Father age 75. Patient is number 2 of 2 sibs. Her sister dies age 63 of lung cancer. She is . She had 3 children. Her son of drug overdose. Her 2 daughters live in [place] and are close to one another. Patient has broken off contact with them. Patient lived in [place], [place], ran into financial difficulties, and a problem with hoarding. When her mother became ill, Patricia moved in with her to care for her and now lives in that apartment. REVIEW OF SYSTEMS: Unobtainable because of her confusional state. PHYSICAL EXAMINATION GENERAL: The patient is seen this Friday morning in room 276, bed 2, lying in bed comfortable, in no acute distress. She recognizes me from years ago, is thankful that I have come to visit her, but is bizarrely confused, telling me that recently her mother and father have returned to be with her even though she says she realizes they have years ago. She states she is living with her sister and her daughter and there are other friends who can make themselves invisible at times coming and going as they please, so that sometimes they are with her and at another times they are not present. She also reports thought transmission and thought clinic receptionist and realizes these claims sound very bizarre and strange, but is emphatic that are very real. HEAD AND NECK: Are unremarkable. A thin, tall, 77-year-old woman with some temporalis thinning due to her body habitus and thin build. Mucous membranes are moist. Conjunctivae are pink. NECK: Supple without masses. There is no JVD or carotid bruits. LUNGS: Clear with prolonged expiratory phase and decreased breath sounds with COPD. HEART: Regular and not tachycardic. BREASTS: Not examined. ABDOMEN: Soft, nontender. No guarding or rebound. EXTREMITIES: She moves all four extremities with normal focal motor weakness. IMPRESSION 1. Altered mental status with bizarre delusions, hallucinations. 2. Hypertension. 3. Hypokalemia. PLAN: Psychiatry consultation has been requested. We will correct her electrolyte imbalances. Repeat labs. Check blood cultures and follow. I strongly suspected the etiology of all of these changes are in the realm of mental health. We will need to talk with Psychiatry, Senior Advisor shoe parts caser, and perhaps reach out to family if there is any to be contacted regarding post hospitalization planning. Fahad Bautista MD DAO
[2018-07-20 07:12] LABS: BASO # 0.02 K/mm3 (0.0-2.0); BASO % 0.2 % (0.0-3.0); EOS # 0.1 (0.0-0.7); EOS % 1.3 % (1.5-5.0); LYMPH # 1.8 (1.2-3.4); LYMPH % 20.8 % (22.0-35.0); MEAN CELL VOLUME 87.2 fl (80.0-105.0); MEAN CORPUSCULAR HEMOGLOBIN 26.5 pg (25.0-35.0); MEAN CORPUSCULAR HGB CONC 30.4 g/dl (31.0-37.0); MEAN PLATELET VOLUME 9.3 fl (7.0-11.0); MONO # 0.6 (0.1-0.6); MONO % 6.6 % (1.0-6.0); RBC 4.53 10^6/uL (3.5-6.1); RED CELL DISTRIBUTION WIDTH 15.8 % (11.5-14.5); WHITE BLOOD COUNT 8.5 10^3/uL (4.5-11.0)
[2018-07-20] MEDS: Potassium Chloride 20 mEq ER Tab PO SCH ×4 (09:09→23:19)
--- NOTE | 2018-07-20 09:13 | CON ---
DATE: 07/19/2018 HISTORY OF PRESENT ILLNESS: This is a 77-year-old female with past medical history of hypertension, dementia, hyperlipidemia, who came here with the complaint of confusion. As per neighbor, the patient was half naked, confused, walking around in the neighbor's house, asking about the location of her mother, and the patient's mother has been for a while, and appears confused, and brought to the hospital for further checkup. CT scan of the head was done, which was reported negative. PAST MEDICAL HISTORY: Dementia, hypertension, hyperlipidemia. ALLERGIES: NO KNOWN DRUG ALLERGY. PHYSICAL EXAMINATION VITAL SIGNS: Blood pressure 204/110. HEENT: Normocephalic, atraumatic. NECK: Supple. NEUROLOGIC: Awake, alert, oriented to self and place. Cranial nerves II to XII were tested. Pupils reactive. EOM intact. Visual field full. No facial asymmetry. Tongue midline. Motor examination; moves all the extremities spontaneously. Deep tendon reflexes 1+. Both plantars are downgoing. Sensory appears intact. Cerebellar gait deferred. LABORATORY DATA: CT scan of the head was negative. IMPRESSION: Altered mental status, possibly metabolic encephalopathy. PLAN: Continue present management. We will followup. Db Richardson MD
[2018-07-20 10:42] LABS: BLOOD UREA NITROGEN 10 mg/dL (7-21); CALCIUM 8.7 mg/dL (8.4-10.5); GFR NON-AFRICAN AMERICAN > 60
[2018-07-20 14:58] LABS: URINE BILIRUBIN NEGATIVE (NEGATIVE); URINE BLOOD TRACE-INTACT (NEGATIVE); URINE GLUCOSE (UA) NEGATIVE (NEGATIVE); URINE LEUKOCYTE ESTERASE NEGATIVE Leu/uL (NEGATIVE); URINE PROTEIN NEGATIVE mg/dL (<30 mg/dL); URINE UROBILINOGEN 0.2 E.U./dL (<1 E.U./dL)
[2018-07-20 15:01] LABS: URINE APPEARANCE CLEAR (CLEAR); URINE COLOR YELLOW (YELLOW)
[2018-07-20 15:13] LABS: URINE WBC 0 - 2 /hpf (0-6)
[2018-07-20 15:14] LABS: URINE BACTERIA SMALL /hpf
--- NOTE | 2018-07-20 19:48 | PN ---
DATE: 07/20/2018 SUBJECTIVE: The patient is a 77-year-old female with not known previous psychiatric history. The patient has history of delirium. This time, the patient was brought in because the patient was wandering in the community and half naked. A psych consult was called for evaluation of altered mental status. The patient was seen by Dr. Escalera over the weekend. This automobile service writer is taking over. The patient was seen and examined today. The patient presented to be confused. The patient is still preoccupied with the idea that she lives with her mother. Based on report, mother is many years ago. The patient reported that her mother is 92 and she moved in, in [place] in order to take care of her mother. The patient reported the main stressor for her was her sister who is constantly screaming at her and this automobile service writer is not sure is it true or not. The patient presented to be irritable and annoyed, especially on the question where she lives and what was the circumstances of her admission to the hospital. The patient was not sure if she is in the hospital and where she is right now. Based on report from Dr. Escaelra, the patient reported that she was feeling depressed but the patient denied feeling depressed today. PHYSICAL EXAMINATION VITAL SIGNS: This automobile service writer reviewed vital signs. Temperature 98, pulse is 81, blood pressure 173/82, respiration 19. LABORATORY DATA: Labs reviewed. Coagulation reviewed. Chemistry reviewed. Urinalysis reviewed. Toxicology reviewed. MEDICATIONS: Medications reviewed. Norvasc, Lexapro was started, Cozaar and K-Dur. MENTAL STATUS EXAM: The patient presented to be alert. The patient does not know where she is. Intermittent eye contact. Speech was overproductive. Mood described as okay. Affect was constricted and annoyed. Thought process seems to be circumstantial. Thought content; the patient denied visual, auditory, or tactile hallucinations. Denied paranoid ideation, but the patient was confused earlier. The patient also is preoccupied with the fact that she lives with her mother which is not true. The patient's mother many years ago based on report. Insight and judgment seems to be very limited. Impulses are unpredictable. IMPRESSION: Most likely the patient is in delirium stage, which is slowly improving versus pseudo dementia, rule out major depressive disorder. Rule out delirium. PLAN: This automobile service writer will initiate Seroquel as needed for possible agitation and confusion. Lexapro will be continued. Will follow up and advise accordingly. Thank you very much for letting me participate in the care of your patient. Esme Byers MD
[2018-07-21] MEDS: Potassium Chloride 20 mEq ER Tab PO SCH (10:20)
[2018-07-21 10:25] LABS: BLOOD UREA NITROGEN 6 mg/dL (7-21); CALCIUM 8.8 mg/dL (8.4-10.5); GFR NON-AFRICAN AMERICAN > 60
--- NOTE | 2018-07-21 12:54 | PN ---
DATE: 07/20/2018 SUBJECTIVE: The patient is a 77-year-old female with a history of hypertension, possible intracerebral bleed, who was admitted with altered mental status. She is being followed by Dr. Richardson, the neurologist, and Dr. Escalera and Dr. Byers, the psychiatrist. Her EKG showed regular sinus rhythm with prolonged QT waves and nonspecific ST-T wave changes. Her chest x-ray showed no acute disease with chronic obstructive pulmonary disease. She is a smoker. She partakes in alcoholic beverages at times and she has no known medical allergies. When seen today, she is friendly, arousable. She speaks clearly. PHYSICAL EXAMINATION: VITAL SIGNS: Stable. Blood pressure is 157/82, heart rate is 96 and she is afebrile. LUNGS: Clear anteriorly. HEART: Regular. ABDOMEN: Soft and nontender. LABORATORY DATA: Morning laboratory shows a white blood cell count to be 8.5, hemoglobin and hematocrit are 12 and 39.5, platelet count is 323. Her sodium is 139, potassium is 4.1 which had improved after supplementation from 2.9 yesterday to 4.1 this morning, blood urea nitrogen is 14, creatinine 0.8, glucose is 108. She had been started on Lexapro 5 mg at bedtime by Dr. Escalera. We will continue the current regimen, follow the patient closely and discuss post hospitalization care with President And Chief Commercial Officer and family members. Manan Bautista MD
--- NOTE | 2018-07-21 18:56 | PN ---
DATE: 07/21/2018 NEUROLOGY FOLLOWUP CHIEF COMPLAINT: Followup for mental status change. SUBJECTIVE: The patient is seen and examined at bedside, very flat affect, has been started on Lexapro by Psychiatry which is good and Seroquel for agitation at night which I agree with. No acute events overnight. PAST MEDICAL HISTORY: History of hypertension, hyperlipidemia, cognitive impairment. REVIEW OF SYSTEMS: A 14-point review of systems negative except in the HPI. ALLERGIES: NO KNOWN DRUG ALLERGIES. MEDICATIONS: Reviewed by nurses' reconciliation sheet. FAMILY HISTORY: Noncontributory. LABORATORY DATA: Sodium is 139, potassium 4.8, chloride 105, carbon dioxide 26, BUN of 6, creatinine of 0.6, and random glucose 142. PHYSICAL EXAMINATION: GENERAL: The patient is seen up in bed, in no acute distress. VITAL SIGNS: Temperature is 98.5, pulse rate of 85, blood pressure 157/89, respiratory rate is 19, and oxygen saturation 90% on room air. HEENT: Atraumatic and normocephalic. PERRLA. Extraocular muscles intact. HEART: S1 and S2, normal rate and rhythm. No murmurs, rubs, or gallops. ABDOMEN: Soft, nontender, and nondistended. Bowel sounds are present. EXTREMITIES: No clubbing. No cyanosis. Peripheral pulses are 2+ bilaterally. NEUROLOGIC: The patient is alert and oriented to person, place and year. Recall after 5 minutes is 0/3. Poor attention span. Slow thought process. The patient does not know where she is. She has intermittent eye contact. Speech is overproductive, but mood is okay. Affect is constricted and annoyed. Thought process is circumstantial. Cranial nerves II through XII intact. Motor exam: Moves all extremities equally. No pronator drift seen. Sensory exam: Light touch, pinprick, proprioception and vibration are intact. DTRs are 2+ throughout and 1 at both knees and ankles. Coordination: [id number] intact. No dysmetria noted. 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 At this time, we recommend: 1. Seroquel 25 mg p.o. at bedtime for agitation. 2. Continue Lexapro 5 mg p.o. at bedtime which will help her with underlying dementia and depression effect.. Recommend daily dose of one pill of B-complex vitamins and continue to monitor her blood pressure to prevent hypertension. Thank you for this followup. Jan Richardson MD
--- NOTE | 2018-07-21 19:46 | PN ---
DATE: 07/21/2018 SUBJECTIVE: In short, the patient is a 77-year-old female with not known previous psychiatric history. The patient has history of delirium. The patient was admitted to the medical site for altered mental status. The patient was seen by Dr. Escalera over the weekend, this scenario writer is taking over. The patient was seen today. The patient presented to be irritable and annoyed, especially when she was asked about circumstances of admission. The patient wears dark glasses during this hospitalization for unknown reasons. The patient presented to be paranoid. The patient said that she does not want this scenario writer to contact her family "because I said so." The patient was not willing to discuss the circumstances of her admission to the medical site, "because I do not feel comfortable to do so." OBJECTIVE: VITAL SIGNS: This scenario writer reviewed vital signs. Blood pressure is elevated. MENTAL STATUS EXAMINATION: The patient appears to be alert, paranoid, and guarded. Intermittent eye contact. Mood described as okay, but "I am little bit depressed." Thought process concrete. Thought content, the patient obviously paranoid and guarded. The patient denied hearing voices. Denied seeing things. Denied paranoid ideations, but presented to be psychotic. Insight and judgment seems to be very limited. Impulses are unpredictable. MEDICATIONS: Reviewed. The patient is on Lexapro as well as Seroquel as needed, but the patient did not require over nighttime. This scenario writer will schedule Seroquel at the nighttime in order to clear the patient's psychotic symptoms. LABORATORY DATA: Reviewed. Chemistry reviewed. Urinalysis reviewed. IMPRESSION: Most likely, the patient is in delirium stage, rule out dementia. PLAN: This scenario writer asked permission to talk to her family, but the patient refused to give consent for collateral information. The patient might benefit from antipsychotic medication, Seroquel will be implemented at the nighttime. Family collateral information should be crucial, but the patient refused to sign consent for it. Meanwhile, we will continue monitoring the patient and advise accordingly. Thank you very much for letting me to participate in the care of your patient. Esme Byers MD
--- NOTE | 2018-07-22 01:18 | PN ---
DATE: 07/21/2018 DAILY PROGRESS NOTE The patient was seen this Friday at the noon hour in room 276, bed 1. Conversation is again very bizarre. Talk about things she knowingly and understandably says sounds strange. She said she lives with her mother and her father and her sister but then freely admits that they have all . Her mom approximately two or three years ago. Her dad 20 years ago. Her sister at age 63 of lung CA. She said she has not been also in touch with her daughter and her daughter stays with her and helps her. Through the confidential medical records in my office, I was able to reach out to the patient's daughter. The patient has a strange from her daughters several years ago. In fact, they were not even aware of their grandmother's three years ago. I told her about Patricia's hospital admission. The daughter I spoke to will speak with her other sister as there are two of them and "decide what we will do with this information." I will touch bases with them again in a few days to see if they are involved at all with aPtricia. In the meantime, the patient appears medically well but confused with the bizarre thoughts in conversation. I was able to discuss briefly with Neurology. We will need to talk with them and Psychiatry in greater detail. Phone call we received from the patient's neighbors in the apartment confirmed that she does in fact live alone and that there is no one else in the apartment with her. We will await input from Psych and Neurology and I will have to talk to case management and criminal justice social worker about discharge planning. Fahad Bautista MD
[2018-07-22 07:49] LABS: BASO # 0.01 K/mm3 (0.0-2.0); BASO % 0.1 % (0.0-3.0); EOS # 0.1 (0.0-0.7); HEMOGLOBIN 11.3 g/dL (12.0-16.0); LYMPH # 1.9 (1.2-3.4); MEAN CELL VOLUME 87.4 fl (80.0-105.0); MEAN CORPUSCULAR HEMOGLOBIN 26.3 pg (25.0-35.0); MEAN CORPUSCULAR HGB CONC 30.1 g/dl (31.0-37.0); MEAN PLATELET VOLUME 9.2 fl (7.0-11.0); MONO # 0.6 (0.1-0.6); MONO % 8.3 % (1.0-6.0); RBC 4.29 10^6/uL (3.5-6.1); RED CELL DISTRIBUTION WIDTH 15.7 % (11.5-14.5); WHITE BLOOD COUNT 6.9 10^3/uL (4.5-11.0)
[2018-07-22 10:33] LABS: BLOOD UREA NITROGEN 11 mg/dL (7-21); CALCIUM 8.3 mg/dL (8.4-10.5); GFR NON-AFRICAN AMERICAN > 60
--- NOTE | 2018-07-22 20:11 | PN ---
DATE: 07/22/2018 SUBJECTIVE: The patient was seen today. The patient presented with some improvement with her presentation. The patient was not wearing dark sunglasses while talking to this mortgage underwriter. The patient still presented to be psychotic and paranoid. The patient still convinced that she lives with the mother as well as her sister, both of them many years ago. The patient is defensive and irritable, especially when this mortgage underwriter ask questions about living situation and the past history. The patient gave permission to talk to her primary care physician Dr. Bautista. Prolonged conversation took place today. As per collateral information from the primary care physician, the patient's mother as well as sister had many years ago. The patient convinced that they are alive. The patient lives alone. The patient is known to the primary care physician for the past 6 years and pt's PMD is very concern about pt's functional status as well as prominent symptoms of psychosis. This mortgage underwriter suggested psychiatric admission for evaluation and stabilization. Primary care physician agreed with that. Decision was made to speak to the patient tomorrow at the morning time if she would agree for admission I would be more than happy to address her psychosis, delusions as well as depressive symptoms. If not, possibly will initiate screening process. OBJECTIVE: VITAL SIGNS: Reviewed. Temperature 98.8, pulse 76, blood pressure 152/81, respirations 26 and saturation is 95%. MEDICATIONS: Reviewed. The patient is on Norvasc, Lexapro 5 mg daily, Lopressor, Seroquel will be increased to 50 mg daily and vitamin B complex. LABORATORY DATA: Reviewed. Urinalysis reviewed. Toxicology reviewed. MENTAL STATUS EXAM: The patient presented with poor personal hygiene. Intense eye contact. Mood described as better. Affect was flat. Thought process circumstantial, tangential. Thought content, the patient presented to be psychotic, paranoid and guarded, lost touch with reality. The patient feels that her mother and sister are still alive, which is not true. Insight and judgment seems to be very limited. Impulses are well controlled. IMPRESSION: Psychosis, not otherwise specified. PLAN: Seroquel was increased, Lexapro increased; Lexapro was started over the weekend. Collaterals were obtained from the patient's primary care physician. Will offer the patient to be admitted to the psychiatric inpatient unit tomorrow, Dr. Escalera will follow up on this patient most likely the patient will require psych admission under voluntary status or screening for involuntary commitment will be initiated. Thank you very much for letting me participate in the care of your patient. Esme Byers MD DAO
[2018-07-23 00:05] VITALS: RESP 18; O2SAT 96
[2018-07-23 06:04] VITALS: TEMP 99
[2018-07-23] MEDS ORDERED: Multivitamin Vitamin B Complex (Nephro-Vite) Tab PO SCH (08:00)
--- NOTE | 2018-07-23 10:17 | CP.PCM.PCO ---
Physician Communication Note - Physician Communication Note Physician Communication Note: as per Dr. Victoria voluntary vs involuntary psychiatric therapy
[2018-07-23 10:51] LABS: BLOOD UREA NITROGEN 16 mg/dL (7-21); CALCIUM 8.4 mg/dL (8.4-10.5); GFR NON-AFRICAN AMERICAN > 60
[2018-07-23 10:57] VITALS: BP 139/75; PULSE 76
--- NOTE | 2018-07-23 15:49 | CON ---
DATE: 07/23/2018 HISTORY OF PRESENT ILLNESS: The patient is a 77-year-old female with no formal previous psychiatric history except for consultation by Dr. Byers in 02/2018 for confusion secondary to delirium. Psychiatry has been following up with this patient due to altered mental status and also reports depression and anxiety, she is being treated on the medical floor after she was found wandering around her neighbor's property asking for her mother who has three years. I met with the patient at bedside over the weekend, and I met with her again this morning. I reviewed Dr. Byers's notes. The patient appears to have confusion and lability on the medical floor, noted to be paranoid by Dr. Byers; did not permit Psychiatry to contact her family and did not wish to discuss the circumstances leading to her medical admission. The patient has been taking medications as prescribed. There were no behavioral issues overnight. I met with the patient at bedside this morning, and she appears to vaguely recognize me from prior encounters, and she is superficially cooperative; however, she is gallego and she reports continued depression, though has been tolerating Lexapro 5 mg at night. She denies any hallucinations. She is not able to give me any information regarding what month or year it is and she cannot even guess current location. Her focus is a little bit better, but inconsistent. Her responses are vague and passive, and her thought process is disorganized. Insight and judgment are poor. MEDICATIONS: Reviewing these include Lexapro 5 mg at bedtime and Seroquel 50 mg at bedtime. IMPRESSION: Delirium as well as major depression. RECOMMENDATIONS: We will increase Lexapro to 10 mg at bedtime, this is minimal therapeutic dose for depression and anxiety. We will continue with Seroquel 50 mg at bedtime to help with sleep and mood control as well as disorganization. In the meantime, once the patient is medically cleared, she should be referred to [facility] if she is not willing to sign in on a voluntary basis to our unit. Psychiatry will continue to follow up. Dai Escalera MD
== END 2018-07-23 12:07 | DRG 948 ==
LOC: ED 18:59 → ERH 07-19 00:37 → 2RSO 07-19 01:00 → ERH 07-19 01:01 → 2RSO 07-19 01:24
PROVIDERS: ADMIT Internal Medicine; ATTEND Internal Medicine
DX: R41.82 Altered mental status, unspecified (principal); E87.6 Hypokalemia; F03.90 Unspecified dementia, unspecified severity, without behavioral disturbance, psychotic disturbance, mood disturbance, and anxiety; I10 Essential (primary) hypertension; R44.3 Hallucinations, unspecified; F32.9 Major depressive disorder, single episode, unspecified; F41.9 Anxiety disorder, unspecified; F17.200 Nicotine dependence, unspecified, uncomplicated; E78.5 Hyperlipidemia, unspecified; Z86.73 Personal history of transient ischemic attack (TIA), and cerebral infarction without residual deficits; Z80.1 Family history of malignant neoplasm of trachea, bronchus and lung

== ENCOUNTER 2018-07-23 12:10 | Inpatient (IN) | payer MEDICARE, OTHER ==
[2018-07-23 12:22] VITALS: BMI 21.9
[2018-07-23 12:24] VITALS: O2SAT 100
--- NOTE | 2018-07-23 17:37 | PCM.BM ---
<MarvinTwin - Last Filed: 07/23/18 17:34> Treatment Plan Problems - Problems identified on initial assessmt Hopelessness/Helplessness Date Initiated: 07/23/18 Time Initiated: 13:00 Assessment reference: NA Status: Active Priority: 1 Feelings of Worthlessness Date Initiated: 07/23/18 Time Initiated: 13:00 Assessment reference: NA Status: Active Priority: 2 Ineffective Coping Date Initiated: 07/23/18 Time Initiated: 13:00 Assessment reference: NA Status: Active Priority: 3 Treatment assets and liabiliti Patient Assests: cooperative, ADL independent, negotiates basic needs, good interpersonal skills Patient Liabilities: relationship conflicts, medical problems, imparied memory - Milieu Protocol Maintain good personal hygiene: daily Encourage regular showers, daily Remind patient to perform daily oral care, every shift Assist patient to perform ADL's Maintain personal safety: every shift Educate patient to report safety concerns to staff, every shift Monitor environment for contraband/sharps Medication safety: Monitor for expected outcome, potential side effects: every shift, Assess barriers to learning: every shift, Assess readiness for medication education: every shift Family Contact Family involvement: Famliy/SO not involved Family contact: Patient declines to allow family contact at present - Goals for Treatment Patient goals for treatment: Less depression Discharge/Continuing Care - Education Needs Education Needs: Patient Medication, Patient Diagnosis/Disease Process, Patient Coping Skills, Patient Anger Management skills, Patient Placement options, Patient Community resources, Patient Activities of Daily Living, Patient Pain, Patient Nutrition, Patient Uses of Medical Equipment, Patient Health Practices/Safety, Patient Personal Hygiene/Grooming, Patient Aftercare Safety Plan - Discharge Discharge Criteria: Tolerates medication w/o severe side effects <Franchesca Yin - Last Filed: 07/24/18 11:58> Family Contact Family involvement: Famliy/SO not involved <Esme Byers - Last Filed: 07/24/18 13:56> - Diagnosis (1) Unspecified psychosis Status: Acute Interventions: 07/24/18 13:56 Psychoeducation/psychotherapy Psychopharmacology/adjustment of medications as needed/ monitoring possible side effects Evaluate pt on daily basis Compliance with medications and follow up appointments Long acting medication if pt is noncompliant with pill form Suicide and homicide risk assessment and prevention, coping strategies, safety plan Relapse prevention Reduction of symptoms Improve functional status Possible assertive community treatment Cognitive behavioral therapy Family involvement Possible social skill training as outpatient (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
[2018-07-24 08:20] LABS: GLUCOSE,FASTING 100 mg/dL (65-110); HDL CHOLESTEROL 34 mg/dL (29-60)
[2018-07-24] MEDS: Multivitamin Vitamin B Complex (Nephro-Vite) Tab PO SCH (08:21)
[2018-07-24 08:31] LABS: LDL CHOLESTEROL 109 mg/dL (0-129)
--- NOTE | 2018-07-24 13:55 | PCM.PSYCH ---
Initial Psychiatric Evaluation - Initial Psychiatric Evaluation Type of Admission: Voluntary Legal Status: Capacity Chief Complaint (in patient's own words): "I was seeing people, I thought my mother and sister alive, I do not feel this anymore..." Patient's Reaction to Hospitalization: Patient was transferred from the medical side for evaluation and stabilization of psychotic symptoms, disorganized thoughts and behavior. History of Present Illness and Precipitating Events: Shortly, patient is a 77-year-old female, but not known previous psychiatric history, patient had history of delirium, patient initially was admitted to the medical side for evaluation of altered mental status, looking for her parents and sister who have been for a while, on the medical side patient was treated for hypertension, delirium, overall patient improved, but patient presented to be disorganized, paranoid, was insisting that her family is alive, was saying that her mother is waiting for her to come back home, patient reported that she had conflict with her sister, patient was not safe to be discharged back home, required further hospitalization to the psychiatric inpatient unit. Patient was able to sign consent for treatment into the psychiatric inpatient unit because patient recognized that she had hallucinations and delusions. Patient agreed to take medications, patient required further observation/stabilization/med management. Patient was seen today at the treatment team meeting, patient presented to be alert, somewhat disorganized, patient was mumbling something to her self, patient appears to be guarded, on top of that patient has very bad hearing, this technical proposal writer had to ask the same question multiple times and even though patient understood the question times answers were irrelevant to the questions being asked. Patient presented with poor personal hygiene, has long/gaytan/uncombed hair, poor ADLs. At the same time patient has a periods of clarity saying that she lives alone, and now patient is aware of psychotic symptoms. Patient presented to be poor and unreliable historian, very hard to interview, patient reported that "I am doing fine." That her appetite and sleep are "fine." Patient denied any hallucinations but patient presented to be guarded and paranoid. Patient denies using drugs, denied alcohol consumption, denied smoking. No manic symptoms elicited. While being on the medical side patient did not allow this technical proposal writer to contact her family, as per primary care physician Dr. Bautista, patient moved in [place] many years back, used to live with her mother and was taking care of her, patient had one sister of cancer many years back. Patient has 2 kids which are strangers for her because patient did not allow them to be involved in her life. Patient was presenting relatively well for past years, previous notes patient was seen by Dr. Mosqueda, neurologist at [facility] on 03/20/18, back then pt was "wondering patient was half naked and confused", pt was looking for her mother, but he then patient had a lot of medical issues and patient was diagnosed with toxic metabolic encephalopathy. pt has h/o CVA. This technical proposal writer also was involved into pt's care in 02/2018, patient presented to be paranoid, felt that people are breaking into her apartment, pt was dx delirium, possible early aging or early stage of dementia, pt improved significantly and was d/c back home. Past history: Patient denied history of psychiatric admissions, denied history of suicidal attempts. 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 as per lead janitor: Depression just started. I hate most people, especially my daughters. I have two grown daughters, one in [place] and one in [place]. I dont want to contact them- I helped them their whole lives but when I need help, they forget about that." Upon interview by this technical proposal writer, patient has bizarre speech. pt denied h/o being abused. denied family h/o mental illness. Lab Results 07/24/18 07:45: TSH 3rd Generation 0.19 L 07/24/18 07:45: Fasting Glucose 100, Triglycerides 165 H, Cholesterol 180, LDL Cholesterol Direct 109, HDL Cholesterol 34 Vital Signs Temp Pulse Resp BP Pulse Ox 07/24/18 07:10 98.2 F 81 20 104/61 07/23/18 17:17 69 150/80 07/23/18 16:00 69 150/80 07/23/18 12:23 98.8 F 67 18 141/76 100 The patient failed the outpatient lower level of care: Yes Current Medications: Active Medications Generic Name Dose Route Start Last Admin Trade Name Freq PRN Reason Stop Dose Admin Amlodipine Besylate 5 mg 07/24/18 08:00 07/24/18 08:23 Norvasc PO 5 mg DAILY MITCH Administration Escitalopram Oxalate 10 mg 07/23/18 22:00 07/23/18 22:15 Lexapro PO 10 mg HS MITCH Administration Lorazepam 2 mg 07/23/18 13:57 Ativan PO Q6H PRN Anxiety Protocol Lorazepam 2 mg 07/23/18 13:58 Ativan IM Q6H PRN Agitation Protocol Losartan Potassium 100 mg 07/24/18 08:00 07/24/18 08:21 Cozaar PO 100 mg DAILY MITCH Administration Metoprolol Tartrate 25 mg 07/23/18 17:00 07/24/18 08:22 Lopressor PO 25 mg BRKDIN MITCH Administration Quetiapine Fumarate 100 mg 07/23/18 22:00 07/23/18 22:16 Seroquel PO 100 mg HS MITCH Administration Protocol Vitamin B Complex/Vit C/Folic Acid 1 tab 07/24/18 08:00 07/24/18 08:21 Nephro-Falguni PO 1 tab 0800 MITCH Administration Ziprasidone 20 mg 07/23/18 13:59 Geodon Cap PO Q6H PRN Agitation Protocol Ziprasidone 20 mg 07/23/18 14:01 Geodon Inj IM Q6H PRN Severe Agitation Protocol Present on Admission - Present on Admission Any Indicators Present on Admission: No Review of Systems - Review of Systems Systems not reviewed;Unavailable: Acuity of Condition - Constitutional Constitutional: As Per HPI - EENT Eyes: As Per HPI Ears: As Per HPI Nose/Mouth/Throat: As Per HPI - Breasts Breasts: As Per HPI - Cardiovascular Cardiovascular: As Per HPI - Respiratory Respiratory: As Per HPI - Gastrointestinal Gastrointestinal: As Per HPI - Genitourinary Genitourinary: As Per HPI - Reproductive: Female Reproductive:Female: As Per HPI - Menstruation Menstruation: As Per HPI - Musculoskeletal Musculoskeletal: As Per HPI - Integumentary Integumentary: As Per HPI - Neurological Neurological: As Per HPI - Psychiatric Psychiatric: As Per HPI - Endocrine Endocrine: As Per HPI - Hematologic/Lymphatic Hematologic: As Per HPI Past Patient History - Past Psychiatric History Previous Treatment History: None Prior Professional Help: see HPI Prior Psychiatric Treatment: see HPI At what hospital: see HPI Duration: see HPI Nature of Treatment: see HPI Explanation of prior treatment: see HPI - PSYCHIATRIC Hx Psychophysiologic Disorder: Yes (h/o AMS) Hx Substance Use: No - Infectious Disease Hx of Infectious Diseases: None - CARDIAC Hx Cardiac Disorders: Yes Hx Hypercholesterolemia: Yes Hx Hypertension: Yes - PULMONARY Hx Respiratory Disorders: No - NEUROLOGICAL Hx Neurological Disorder: Yes HX Cerebrovascular Accident: Yes - HEENT Hx HEENT Problems: No - RENAL Hx Chronic Kidney Disease: No - ENDOCRINE/METABOLIC Hx Endocrine Disorders: No - HEMATOLOGICAL/ONCOLOGICAL Hx Blood Disorders: No - INTEGUMENTARY Hx Dermatological Problems: No - MUSCULOSKELETAL/RHEUMATOLOGICAL Hx Musculoskeletal Disorders: Yes Hx Falls: No (unkown) Hx Unsteady Gait: Yes - GASTROINTESTINAL Hx Gastrointestinal Disorders: Yes Hx Gall Bladder Disease: Yes (cholecystectomy) - GENITOURINARY/GYNECOLOGICAL Hx Genitourinary Disorders: No - SURGICAL HISTORY Hx Surgeries: Yes Hx Cholecystectomy: Yes Hx Hysterectomy: Yes - Medical/Surgical History Reviewed & confirmed: by vt Meds Allergies/Adverse Reactions: Allergies Allergy/AdvReac Type Severity Reaction Status Date / Time No Known Allergies Allergy Verified 07/23/18 12:14 Mental Status Examination - Personal Presentation Personal Presentation: Looks stated age, Looks older than stated age - Affect Affect: Constricted, Flat - Motor Activity Motor Activity: Psychomotor Retardation - Reliability in Providing Information Reliability in Providing Information: Poor, due to alteration in thoughts, Poor, due to altered mood, Poor, due to cognitve impairment - Speech Speech: Disorganized - Mood Mood: Depressed, Anxious - Formal Thought Process Formal Thought Process: Delusions, Paranoia - Hallucinations/Delusions Delusions: Persecution - Obsessions/Compulsions Obsessions: None Compulsions: None - Cognitive Functions Orientation: Person, Place, Situation Sensorium: Alert Attention/Concentration: Easily distracted Abstract Thinking: Sheridan Estimate of Intelligence: Below average Judgement: Intact, as evidence by: Insight regarding need for hospitalization - Risk Risk: Diminished functioning - Strength & Assets Inventory Strength & Assets Inventory: Cooperative - Limitations Limitations: Living alone, Decreased memory, recent, Other (Poor social support) Psychiatric Physical Exam - Physical Exam Reviewed and confirmed: Emergency Department Physical Exam Results - Vital Signs Recent Vital Signs: Last Vital Signs Temp 98.2 F 07/24/18 07:10 Pulse 81 07/24/18 07:10 Resp 20 07/24/18 07:10 BP 104/61 07/24/18 07:10 Pulse Ox 100 07/23/18 12:23 - Labs Labs: Laboratory Results - last 24 hr 07/24/18 07/24/18 07:45 07:45 Fasting Glucose 100 Triglycerides 165 H Cholesterol 180 LDL Cholesterol Direct 109 HDL Cholesterol 34 TSH 3rd Generation 0.19 L - EKG Data EKG Interpreted by: ER Physician DSM Plan - DSM 5 DSM 5 Diagnosis: Psychosis NOS Rule out major depressive disorder severe with psychosis Rule out dementia Delirium is improving - Recommended/Plan of Treatment Treatment Recommendations and Plan of Treatment: Milieu/structure/supportive therapy SW consultation for discharge plan and social issues Med management: Lexapro 10 mg daily for depression as well as anxiety Seroquel was increased to 100 mg at the nighttime for psychosis and mood stabilization Family involvement Follow up on labs Will monitor closely Pt was educated about risk/benefits and alternatives of medications, coping strategies (safety plan, suicide prevention), relapse prevention, importance of follow up with psychiatrist and therapist, stay away from drugs/alcohol/smoking After the patient's psychosis will be cleared, plan is to call neurology for dementia assessment Projected ELOS: 7 days Prognosis: Guarded Discharge Plan and Discharge Criteria: Mood will be stable, pt will be more hopeful, will be not psychotic or anxious, will be tolerating medications well, will not have major side effects, will be able to function, will not pose threat to self or others. - Tobacco Cessation Tobacco Use Status for the last 30 days: Non User Tobacco Use Treatment Practical Counseling Provided: No Tobacco Use Treatment FDA-Approved Cessation Medication Provided: No - Alcohol or Substance Abuse Does the patient have an Alcohol or Substance Abuse Disorder: No Initial Psych Certification - Initial Certification I certify that the inpatient psychiatric facility admission was medically necessary for either: Treatment which could reasonbly be expected to improve pt's condition, Diagnostic study I estimate of hospitalization is necessary for proper treatment of the patient: 7 Unit of Time: Days My plans for post-hospital care for this patient are: Day treatment program, adult daycare, possible fpc placement.
--- NOTE | 2018-07-25 09:46 | PCM.PYCHPN ---
Psychiatric Progress Note - Psychiatric Progress Note Patient seen today, length of contact: 25 min Problems Identified/Issues Discussed: I reviewed assessment and recent notes. Patient is known to me from prior interviews on the medical floor. She doesn't want to speak with me today and was more verbal during my consultations with her earlier this week. Patient has been quiet, guarded and minimal verbal with staff. Not observed to be responding to internal stimuli. She still appears depressed and preoccupied but not overtly psychotic. She can communicate reasonable needs and can tolerate interacting with other patients without any behavioral issues. Diagnostic Results: Psychosis NOS Rule out major depressive disorder severe with psychosis Rule out dementia Delirium is improving Medication Change: No Medical Record Reviewed: Yes Mental Status Examination - Cognitive Function Orientation: Person, Place, Situation Attention: Poor Concentration: Poor Association: Loose Fund of Knowledge: Poor - Mood Mood: Depressed, Anxious - Affect Affect: Constricted, Flat - Formal Thought Process Formal Thought Process: Delusions, Paranoia - Suicidal Ideation Suicidal Ideation: No - Homicidal Ideation Homicidal Ideation: No Goal/Treatment Plan - Goal/Treatment Plan Progress Toward Problem(s) and Goals/Treatment Plan: * c/w current treatment and plan * No new weekend lab results thus far * Vitals reviewed and noted below: Selected Entries 07/24/18 07/24/18 07:10 16:14 Temperature 98.2 F Pulse Rate 81 65 Respiratory 20 Rate Blood Pressure 104/61 115/70
[2018-07-25] MEDS: Multivitamin Vitamin B Complex (Nephro-Vite) Tab PO SCH (13:46)
--- NOTE | 2018-07-26 08:51 | PCM.PYCHPN ---
Psychiatric Progress Note - Psychiatric Progress Note Patient seen today, length of contact: 25 min Problems Identified/Issues Discussed: I reviewed recent notes and met with patient at bedside. Patient is known to me from prior interviews on the medical floor. She is more cooperative and respo nsive with me today though overall still appears preoccupied, withdrawn and aloof. She has been quiet, guarded and minimally verbal with staff. Not observed to be responding to internal stimuli. She still appears depressed and preoccupied but not overtly psychotic. Patient denies any hallucinations or paranoia. Patient wears sunglasses on the unit and can be oddly related. Staff have also noted p eriods of confusion. There were no behavioral issues over the weekend. Diagnostic Results: Psychosis NOS Rule out major depressive disorder severe with psychosis Rule out dementia Delirium is improving Medication Change: No Medical Record Reviewed: Yes Mental Status Examination - Cognitive Function Orientation: Person, Place, Situation Attention: Poor Concentration: Poor Association: Loose Fund of Knowledge: Poor - Mood Mood: Depressed, Anxious - Affect Affect: Constricted, Flat - Formal Thought Process Formal Thought Process: Delusions, Paranoia - Suicidal Ideation Suicidal Ideation: No - Homicidal Ideation Homicidal Ideation: No Goal/Treatment Plan - Goal/Treatment Plan Progress Toward Problem(s) and Goals/Treatment Plan: * c/w current treatment and plan * No new weekend lab results thus far * Vitals reviewed and noted below: Selected Entries 07/25/18 07/25/18 07:37 16:00 Temperature 99.2 F Pulse Rate 70 59 L Respiratory 20 Rate Blood Pressure 86/53 L 122/67
[2018-07-26] MEDS: Multivitamin Vitamin B Complex (Nephro-Vite) Tab PO SCH (09:48)
[2018-07-27] MEDS: Multivitamin Vitamin B Complex (Nephro-Vite) Tab PO SCH (08:46)
--- NOTE | 2018-07-27 16:13 | PCM.PYCHPN ---
Psychiatric Progress Note - Psychiatric Progress Note Patient seen today, length of contact: 30 minutes Patient Chief Complaint: "I was seeing people, I thought my mother and sister alive, I do not feel this anymore..." Problems Identified/Issues Discussed: Medication management, discharge plan, symptoms. Medical Problems: See HPI. Diagnostic Results: Lab Results 07/24/18 07:45: RPR Nonreactive 07/24/18 07:45: TSH 3rd Generation 0.19 L 07/24/18 07:45: Fasting Glucose 100, Triglycerides 165 H, Cholesterol 180, LDL Cholesterol Direct 109, HDL Cholesterol 34 Vital Signs Temp Pulse Resp BP Pulse Ox 07/27/18 16:00 69 154/83 H 07/27/18 08:47 69 133/74 07/27/18 08:46 69 133/74 07/27/18 07:00 97.9 F 69 17 133/74 07/26/18 07:00 98.4 F 73 18 113/76 07/25/18 16:00 59 L 122/67 07/25/18 07:37 99.2 F 70 20 86/53 L 07/24/18 16:14 65 115/70 07/24/18 07:10 98.2 F 81 20 104/61 07/23/18 17:17 69 150/80 07/23/18 16:00 69 150/80 07/23/18 12:23 98.8 F 67 18 141/76 100 DSM 5 Symptoms Update: Shortly, patient is a 77-year-old female, but not known previous psychiatric history, patient had history of delirium, patient initially was admitted to the medical side for evaluation of altered mental status, looking for her parents and sister who have been for a while, on the medical side patient was treated for hypertension, delirium, overall patient improved, but patient presented to be disorganized, paranoid, was insisting that her family is alive, was saying that her mother is waiting for her to come back home, patient reported that she had conflict with her sister, patient was not safe to be discharged back home, required further hospitalization to the psychiatric inpatient unit. Patient was able to sign consent for treatment into the psychiatric inpatient unit because patient recognized that she had hallucinations and delusions. Patient agreed to take medications, patient required further observation/stabilization/med management. Patient was seen today at the treatment team meeting, patient presented to be disorganized, very poor and unreliable historian, again patient wears sunglasses, no reasonable explanation, patient presented to be internally p reoccupied, disorganized speech and behavior, as per staff patient was picking some imaginary things on the floor, this telegraphic typewriter installer started patient on one-to-one because patient is old, very confused, high risk of falls. To compare with the previous week patient is more cooperative and responsive with me today though overall still appears preoccupied, withdrawn and aloof, oddly related. So far patient is compliant with medications, no side effects observed or reported, aims 0, no EPS. No agitation, no aggression. Diagnostic Results: Psychosis NOS Rule out major depressive disorder severe with psychosis Rule out dementia Delirium is improving Medication Change: Yes (Seroquel increased) Medical Record Reviewed: Yes Consults ordered or reviewed: Medical consult appreciated, please see notes for more detailed information Mental Status Examination - Cognitive Function Orientation: Person, Place, Situation Attention: Poor Concentration: Poor Association: Loose Fund of Knowledge: Poor - Mood Mood: Depressed, Anxious - Affect Affect: Constricted, Flat - Formal Thought Process Formal Thought Process: Delusions, Paranoia - Suicidal Ideation Suicidal Ideation: No - Homicidal Ideation Homicidal Ideation: No Goal/Treatment Plan - Goal/Treatment Plan Need for Continued Stay: Remain at risks for inpatient hospitalization, Severe depression anxiety, Discharge may exacerbated symptoms, Severe functional impairment Progress Toward Problem(s) and Goals/Treatment Plan: Milieu/structure/supportive therapy SW consultation for discharge plan and social issues Med management: Lexapro 10 mg daily for depression as well as anxiety Seroquel was increased to 50 mg daily and 100 mg at the nighttime for psychosis and mood stabilization Family involvement Follow up on labs Will monitor closely Pt was educated about risk/benefits and alternatives of medications, coping strategies (safety plan, suicide prevention), relapse prevention, importance of follow up with psychiatrist and therapist, stay away from drugs/alcohol/smoking After the patient's psychosis will be cleared, plan is to call neurology for dementia assessment Estimated Date of D/C: 07/31/18
[2018-07-27 19:54] LABS: URINE BILIRUBIN NEGATIVE (NEGATIVE); URINE BLOOD TRACE-INTACT (NEGATIVE); URINE GLUCOSE (UA) NEGATIVE (NEGATIVE); URINE LEUKOCYTE ESTERASE NEGATIVE Leu/uL (NEGATIVE); URINE PROTEIN NEGATIVE mg/dL (<30 mg/dL); URINE UROBILINOGEN 0.2 E.U./dL (<1 E.U./dL)
[2018-07-27 19:55] LABS: URINE APPEARANCE CLEAR (CLEAR); URINE COLOR YELLOW (YELLOW)
[2018-07-27 19:58] LABS: URINE EPITHELIAL CELLS 0 - 2 /hpf (0-5); URINE RBC 0 - 2 /hpf (0-2)
[2018-07-28] MEDS: Multivitamin Vitamin B Complex (Nephro-Vite) Tab PO SCH (10:08)
--- NOTE | 2018-07-28 13:21 | PCM.PYCHPN ---
Psychiatric Progress Note - Psychiatric Progress Note Patient seen today, length of contact: 30 minutes Patient Chief Complaint: "It was not me, I never wonder in community half naked, it is a lie, I don't know why people lied on me..." Problems Identified/Issues Discussed: Medication management, discharge plan, NH placement, symptoms which brought patient to the hospital. Medical Problems: See HPI. The patient complaining of foot pain, medical team involved, podiatry team involved, most likely patient has cellulitis. Diagnostic Results: Lab Results 07/24/18 07:45: RPR Nonreactive 07/24/18 07:45: TSH 3rd Generation 0.19 L 07/24/18 07:45: Fasting Glucose 100, Triglycerides 165 H, Cholesterol 180, LDL Cholesterol Direct 109, HDL Cholesterol 34 Vital Signs Temp Pulse Resp BP Pulse Ox 07/27/18 16:00 69 154/83 H 07/27/18 08:47 69 133/74 07/27/18 08:46 69 133/74 07/27/18 07:00 97.9 F 69 17 133/74 07/26/18 07:00 98.4 F 73 18 113/76 07/25/18 16:00 59 L 122/67 07/25/18 07:37 99.2 F 70 20 86/53 L 07/24/18 16:14 65 115/70 07/24/18 07:10 98.2 F 81 20 104/61 07/23/18 17:17 69 150/80 07/23/18 16:00 69 150/80 07/23/18 12:23 98.8 F 67 18 141/76 100 DSM 5 Symptoms Update: Shortly, patient is a 77-year-old female, but not known previous psychiatric history, patient had history of delirium, patient initially was admitted to the medical side for evaluation of altered mental status, looking for her parents and sister who have been for a while, on the medical side patient was treated for hypertension, delirium, overall patient improved, but patient presented to be disorganized, paranoid, was insisting that her family is alive, was saying that her mother is waiting for her to come back home, patient reported that she had conflict with her sister, patient was not safe to be discharged back home, required further hospitalization to the psychiatric inpatient unit. Patient was able to sign consent for treatment into the psychiatric inpatient unit because patient recognized that she had hallucinations and delusions. Patient agreed to take medications, patient required further observation/stabilization/med management. Patient was seen today at the treatment team meeting room together with social security specialist and medical student. Patient presented somewhat better, less confused, social security specialist and this bond writer discussed discharge plan with the patient, this bond writer addressed symptoms which brought patient to the hospital, based on the emergency room report patient was wandering in the community, half naked, was very confused. When this bond writer brought these the patient attention patient replied:"It was not me, I never wonder in community half naked, it is a lie, I don't know why people lied on me...", This bond writer expressed highs concerns about patient's safety in the community, patient wants to speak to her primary care physician Dr. Bautista. Patient is currently on one-to-one because she is confused, complaining of right foot pain, high risk of falls. Discussed with Dr. Bautista today, patient will be seen to rule out lower extremity cellulitis as well as discharge plan. overall still appears preoccupied, withdrawn and aloof, oddly related. So far patient is compliant with medications, no side effects observed or reported, aims 0, no EPS. No agitation, no aggression. Diagnostic Results: Psychosis NOS Rule out major depressive disorder severe with psychosis Rule out dementia Delirium is improving Medication Change: Yes (Seroquel increased yesterday) Medical Record Reviewed: Yes Consults ordered or reviewed: Medical consult appreciated, please see notes for more detailed information Mental Status Examination - Cognitive Function Orientation: Person, Place, Situation Attention: Poor Concentration: Poor Association: Loose Fund of Knowledge: Poor - Mood Mood: Depressed ("I am fine.."), Anxious - Affect Affect: Constricted, Flat - Formal Thought Process Formal Thought Process: Delusions (less delusiona,), Paranoia (still paranoid "w hy people lie on me?") - Suicidal Ideation Suicidal Ideation: No - Homicidal Ideation Homicidal Ideation: No Goal/Treatment Plan - Goal/Treatment Plan Need for Continued Stay: Remain at risks for inpatient hospitalization, Severe depression anxiety, Discharge may exacerbated symptoms, Severe functional impairment Progress Toward Problem(s) and Goals/Treatment Plan: Milieu/structure/supportive therapy SW consultation for discharge plan and social issues Med management: Lexapro 10 mg daily for depression as well as anxiety Seroquel was increased to 50 mg daily and 100 mg at the nighttime for psychosis and mood stabilization Family involvement Follow up on labs Will monitor closely Pt was educated about risk/benefits and alternatives of medications, coping strategies (safety plan, suicide prevention), relapse prevention, importance of follow up with psychiatrist and therapist, stay away from drugs/alcohol/smoking After the patient's psychosis will be cleared, plan is to call neurology for dementia assessment collaterals from pt's daughter discussed with Dr. Bautista Estimated Date of D/C: 07/31/18
--- NOTE | 2018-07-28 14:29 | CP.PCM.CON ---
History of Present Illness - History of Present Illness History of Present Illness: Podiatry consult note for attending Dr. Church: 77 year old female with past medical history of HTN, Psychosis and CVA seen and evaluated at the psych unit for pain, swelling and ecchymosis of the right foot. Patient states that a week ago she hits her right foot 4 times to the wheel chair. Patient states that she has pain in the dorsum of her right foot specially when she walks or when the foot get touched. Patient states that she has swelling and redness at the same area. Patient has 1:1 aid in the room. Patient currently denies chest pain, shortness of breath, nausea, vomiting, fever, chills, numbness, tingling, confusion. Patient denies any other pedal comlait. Past Medical History: Hypertension, Psychosis and CVA Past Surgical History: B/l oopherectomy, cholecystectomy Family Hx: Mother- HTN Social Hx: Denies alcohol, tobacco, and drug use Allergies: NKA Medications: Reviewed, as per MAR Review of Systems - Review of Systems Review of Systems: As per HPI - Constitutional Constitutional: As Per HPI Past Patient History - Infectious Disease Hx of Infectious Diseases: None - Past Social History Smoking Status: Former Smoker - CARDIAC Hx Cardiac Disorders: Yes Hx Hypercholesterolemia: Yes Hx Hypertension: Yes - PULMONARY Hx Respiratory Disorders: No - NEUROLOGICAL Hx Neurological Disorder: Yes HX Cerebrovascular Accident: Yes - HEENT Hx HEENT Problems: No - RENAL Hx Chronic Kidney Disease: No - ENDOCRINE/METABOLIC Hx Endocrine Disorders: No - HEMATOLOGICAL/ONCOLOGICAL Hx Blood Disorders: No - INTEGUMENTARY Hx Dermatological Problems: No - MUSCULOSKELETAL/RHEUMATOLOGICAL Hx Musculoskeletal Disorders: Yes Hx Falls: No (unkown) Hx Unsteady Gait: Yes - GASTROINTESTINAL Hx Gastrointestinal Disorders: Yes Hx Gall Bladder Disease: Yes (cholecystectomy) - GENITOURINARY/GYNECOLOGICAL Hx Genitourinary Disorders: No - PSYCHIATRIC Hx Psychophysiologic Disorder: Yes (h/o AMS) Hx Substance Use: No - SURGICAL HISTORY Hx Surgeries: Yes Hx Cholecystectomy: Yes Hx Hysterectomy: Yes Meds Allergies/Adverse Reactions: Allergies Allergy/AdvReac Type Severity Reaction Status Date / Time No Known Allergies Allergy Verified 07/23/18 12:14 - Medications Medications: Current Medications Acetaminophen (Tylenol 325mg Tab) 650 mg PO Q6H PRN PRN Reason: Pain, Mild (1-3) Amlodipine Besylate (Norvasc) 5 mg PO DAILY [facility] Last Admin: 07/28/18 10:09 Dose: 5 mg Escitalopram Oxalate (Lexapro) 10 mg PO HS [facility] Last Admin: 07/27/18 21:12 Dose: 10 mg Lorazepam (Ativan) 2 mg PO Q6H PRN; Protocol PRN Reason: Anxiety Lorazepam (Ativan) 2 mg IM Q6H PRN; Protocol PRN Reason: Agitation Losartan Potassium (Cozaar) 100 mg PO DAILY [facility] Last Admin: 07/28/18 10:09 Dose: 100 mg Metoprolol Tartrate (Lopressor) 25 mg PO BRKDIN [facility] Last Admin: 07/28/18 10:08 Dose: 25 mg Quetiapine Fumarate (Seroquel) 100 mg PO HS [facility]; Protocol Last Admin: 07/27/18 21:12 Dose: 100 mg Quetiapine Fumarate (Seroquel) 50 mg PO DAILY [facility]; Protocol Last Admin: 07/28/18 10:10 Dose: 50 mg Vitamin B Complex/Vit C/Folic Acid (Nephro-Falguni) 1 tab PO 0800 [facility] Last Admin: 07/28/18 10:08 Dose: 1 tab Ziprasidone (Geodon Cap) 20 mg PO Q6H PRN; Protocol PRN Reason: Agitation Ziprasidone (Geodon Inj) 20 mg IM Q6H PRN; Protocol PRN Reason: Severe Agitation Physical Exam - Constitutional Appears: Non-toxic, No Acute Distress - Head Exam Head Exam: ATRAUMATIC, NORMOCEPHALIC - Extremities Exam Additional comments: B/L LE focused exam VASC: DP and PT 2/4 ; cap refill <3 seconds to all digits; temp gradient warm to cool from proximal to distal 5 and a little warmer at the red swollen area on the dorsum of the foot. NEURO: Protective sensation diminished. DERM: Ecchymosis noted on the dorsum of the toes 1 to 5. Ecchymosis noted on the medial side of the foot. Erythema and swelling measuring 5 cm X 4 cm noted on the dorsum of the foot with positive fluctuance. MSKL: pain to palpation of the dorsum right foot at the swelling area, Muscle power 5/5 of the right foot to all groups. - Neurological Exam Neurological exam: Alert Results - Vital Signs Recent Vital Signs: Last Vital Signs Temp 98.4 F 07/28/18 07:26 Pulse 64 07/28/18 10:09 Resp 20 07/28/18 07:26 BP 101/64 07/28/18 10:09 Pulse Ox 100 07/23/18 12:23 - Labs Labs: Laboratory Results - last 24 hr 07/27/18 19:40 Urine Color Yellow Urine Appearance Clear Urine pH 6.0 Ur Specific [place] 1.020 Urine Protein Negative Urine Glucose (UA) Negative Urine Ketones 15 H Urine Blood Trace-intact H Urine Nitrate Negative Urine Bilirubin Negative Urine Urobilinogen 0.2 Ur Leukocyte Esterase Negative Urine RBC 0 - 2 Urine WBC None Ur Epithelial Cells 0 - 2 Assessment & Plan - Assessment and Plan (Free Text) Assessment: 77 year old female with past medical history of HTN, Psychosis and CVA seen and evaluated at the psych unit for pain, swelling and ecchymosis of the right foot. Plan: Patient seen and evaluated at the bedside. Plan discussed with Dr. Church Charts, labs and vitals reviewed: Afebrile. X-ray right foot ordered Ordered arterial doppler. Ordered CBC with Diff. Surgical shoes ordered and to be applied to both feet while ambulating. River wrap applied to the Right foot and ankle. Thank you for the consult. Podiatry will continue to follow up the patient while in house. - Date & Time Date: 07/28/18 Time: 14:37
--- NOTE | 2018-07-28 17:32 | US ---
PROCEDURE: Lower extremity SHAMA exam HISTORY: Peripheral vascular disease with pain and claudication. Previous smoker PHYSICIAN(S): Samuel Barragan MD. FINDINGS: The resting SHAMA's are normal: right, 1.10and left, 1.15. The brachial systolic pressures are symmetric. The high thigh pressures and waveforms are relatively normal. The calf PVR waveforms augment normally. No significant gradients are noted across the thighs. The ankle and metatarsal waveforms are relatively normal and symmetric. No significant pressure gradients are noted across the lower legs. IMPRESSION: 1. Normal SHAMA and PVR examination at rest.
[2018-07-28 18:38] LABS: BASO # 0.02 K/mm3 (0.0-2.0); BASO % 0.2 % (0.0-3.0); EOS # 0.2 (0.0-0.7); EOS % 1.8 % (1.5-5.0); HEMOGLOBIN 12.7 g/dL (12.0-16.0); LYMPH # 2.5 (1.2-3.4); LYMPH % 24.1 % (22.0-35.0); MEAN CELL VOLUME 88.7 fl (80.0-105.0); MEAN CORPUSCULAR HEMOGLOBIN 27.1 pg (25.0-35.0); MEAN CORPUSCULAR HGB CONC 30.5 g/dl (31.0-37.0); MEAN PLATELET VOLUME 9.5 fl (7.0-11.0); MONO # 0.9 (0.1-0.6); MONO % 9.1 % (1.0-6.0); RBC 4.69 10^6/uL (3.5-6.1); RED CELL DISTRIBUTION WIDTH 15.6 % (11.5-14.5); WHITE BLOOD COUNT 10.3 10^3/uL (4.5-11.0)
--- NOTE | 2018-07-29 00:42 | PN ---
DATE: 07/28/2018 SUBJECTIVE: The patient was seen this Friday evening on 5B. I met her in the day room and we had a nice long talk. She has improved dramatically these last 5 days on 5B while I was off the weekend and she was followed by Dr. Manan Bautista. Medically, her blood pressure is doing well. The swelling of the left foot continues and the ecchymosis continue to resolve. This is the result of an accident at home when she stubbed her foot on at least 2 different occasions that she is aware resulting in the pain and swelling. X-rays done on admission were negative for fracture. I see that Podiatry has been requested and diagnostics have been repeated. ABIs were normal as would be expected in view of her bounding dorsalis pedis and posterior tibial pulses bilaterally. I spoke with the patient at great length, she is no longer having hallucinations that she recalls having had at home prior to admission. She no longer has hallucination of her mother, father, or sister who has passed. She does not hear voices of sister abdirahman at her or see hallucinations of her. She realizes she is estranged from her 2 daughters, but after a conversation, she gave me permission to speak with her daughter and convey the messages as to her condition and diagnoses. I also spoke with her at length regarding discharge plan options. I offered her subacute rehab or senior living placement, she feel strongly against this and feels that she would be okay at home. She would much rather go home to her late mother's apartment where she has been living for the past several years. I asked her if she would be compliant with medical followup, she would like very much to continue seeing me at the office in an outpatient setting. I asked her if she would be compliant with her medicines, and her response is quite strong and obvious saying to me, "I feel so much better with medicines, why would I ever stop them, I felt so poorly before." IMPRESSION: 1. Hypertension. 2. Status post hemorrhagic cerebrovascular accident. 3. Hospitalization with visual hallucinations, delusions, perhaps some paranoia, dementia, depression as well, but now doing amazing well on her current medical regimen. PLAN: I will speak with the psychiatrist in the morning. Perhaps another day or two of medication adjustment and the patient may be ready for discharge to home as early as or Friday. I reached out to her daughter late this evening and spoke with Sofie. Although estranged from Patricia, she asked that she be kept in distant contact with her condition and that I call her should any serious situation arise, but is not ready to rekindle their relationship. I will have to pass this word onto the case mgr and [employer] as well and to not contact the patient's daughters regarding discharge planning, financial issues as they have been estranged from Patricia by Patricia's intention. Fahad Bautista MD
[2018-07-29] MEDS: Multivitamin Vitamin B Complex (Nephro-Vite) Tab PO SCH (09:29)
--- NOTE | 2018-07-29 10:51 | RAD ---
Date of service: 07/29/2018 PROCEDURE: Left Foot Radiographs. HISTORY: left foot pain and swelling COMPARISON: None. TECHNIQUE: 3 views obtained. FINDINGS: BONES: Normal. No fracture. JOINTS: There is joint space narrowing in the 1st MTP joint SOFT TISSUES: Normal. OTHER FINDINGS: None. IMPRESSION: There is joint space narrowing in the 1st MTP joint
--- NOTE | 2018-07-29 14:56 | PCM.PYCHPN ---
Psychiatric Progress Note - Psychiatric Progress Note Patient seen today, length of contact: 30 minutes Patient Chief Complaint: "Feel better" Problems Identified/Issues Discussed: Medication management, discharge plan. Medical Problems: See HPI. The patient complaining of foot pain, medical team involved, podiatry team involved, most likely patient has cellulitis. Diagnostic Results: Lab Results 07/24/18 07:45: RPR Nonreactive 07/24/18 07:45: TSH 3rd Generation 0.19 L 07/24/18 07:45: Fasting Glucose 100, Triglycerides 165 H, Cholesterol 180, LDL Cholesterol Direct 109, HDL Cholesterol 34 Vital Signs Temp Pulse Resp BP Pulse Ox 07/27/18 16:00 69 154/83 H 07/27/18 08:47 69 133/74 07/27/18 08:46 69 133/74 07/27/18 07:00 97.9 F 69 17 133/74 07/26/18 07:00 98.4 F 73 18 113/76 07/25/18 16:00 59 L 122/67 07/25/18 07:37 99.2 F 70 20 86/53 L 07/24/18 16:14 65 115/70 07/24/18 07:10 98.2 F 81 20 104/61 07/23/18 17:17 69 150/80 07/23/18 16:00 69 150/80 07/23/18 12:23 98.8 F 67 18 141/76 100 DSM 5 Symptoms Update: Shortly, patient is a 77-year-old female, but not known previous psychiatric history, patient had history of delirium, patient initially was admitted to the medical side for evaluation of altered mental status, looking for her parents and sister who have been for a while, on the medical side patient was treated for hypertension, delirium, overall patient improved, but patient presented to be disorganized, paranoid, was insisting that her family is alive, was saying that her mother is waiting for her to come back home, patient reported that she had conflict with her sister, patient was not safe to be discharged back home, required further hospitalization to the psychiatric inpatient unit. Patient was able to sign consent for treatment into the psychiatric inpatient unit because patient recognized that she had hallucinations and delusions. Patient agreed to take medications, patient required further observation/stabilization/med management. Patient was seen today in her room with mental health worker and medical student. Patient presented somewhat better, less confused, patient remembered this casualty underwriter, patient knows where she is, patient reported that the present moment she feels "little better", patient reports her thought medications "I think medication helping me, I am not confused, I am more relaxed...", Patient expressed interest to be referred to shelter, patient wants to follow-up with outpatient psychiatrist as well as her primary care physician. This casualty underwriter had prolonged conversation with Dr. Bautista, as per Dr. Bautista patient presented much better, no concerns about patient's safety in the community. Patient's daughter do not want to be involved into patient care. overall still appears preoccupied, withdrawn, at times oddly related. So far patient is compliant with medications, no side effects observed or reported, aims 0, no EPS. No agitation, no aggression. Diagnostic Results: Psychosis NOS Rule out major depressive disorder severe with psychosis Rule out dementia Delirium is improving Medication Change: Yes ( Seroquel increased, Lexapro increased.) Medical Record Reviewed: Yes Mental Status Examination - Cognitive Function Orientation: Person, Place, Situation Attention: Poor (Patient somewhat better) Concentration: Poor (Somewhat better) Association: Loose (Improving) Fund of Knowledge: WNL - Mood Mood: Depressed ("I am fine.."), Anxious - Affect Affect: Constricted, Flat - Formal Thought Process Formal Thought Process: Delusions (Denied), Paranoia (Denied) - Suicidal Ideation Suicidal Ideation: No - Homicidal Ideation Homicidal Ideation: No Goal/Treatment Plan - Goal/Treatment Plan Need for Continued Stay: Remain at risks for inpatient hospitalization, Severe depression anxiety, Discharge may exacerbated symptoms, Severe functional impairment Progress Toward Problem(s) and Goals/Treatment Plan: Milieu/structure/supportive therapy SW consultation for discharge plan and social issues Med management: Lexapro 20 mg daily for depression as well as anxiety Seroquel was increased to 100 mg daily and 100 mg at the nighttime for psychosis and mood stabilization Family involvement Follow up on labs Will monitor closely Pt was educated about risk/benefits and alternatives of medications, coping strategies (safety plan, suicide prevention), relapse prevention, importance of follow up with psychiatrist and therapist, stay away from drugs/alcohol/smoking After the patient's psychosis will be cleared, plan is to call neurology for dementia assessment collaterals from pt's daughter discussed with Dr. Bautista Estimated Date of D/C: 07/31/18
--- NOTE | 2018-07-29 19:04 | CP.PCM.PN ---
<Alexis Rowe - Last Filed: 07/29/18 19:01> Subjective - Date & Time of Evaluation Date of Evaluation: 07/29/18 Time of Evaluation: 08:05 - Subjective Subjective: Podiatry progress note for attending Dr. Church: 77 year old female patient seen and evaluated at the psych unit for pain, swelling and ecchymosis of the left foot. Patient states that her foot pain decreased since yesterday. Patient still has 1:1 aid in the room. Patient currently denies any overnight chest pain, shortness of breath, nausea, vomiting, fever, chills, numbness, tingling, confusion. Patient denies any other pedal comlait. Objective - Vital Signs/Intake and Output Vital Signs (last 24 hours): Temp Pulse Resp BP Pulse Ox 98.0 F 100 H 20 172/72 H 100 07/29/18 07:20 07/29/18 17:32 07/29/18 07:20 07/29/18 17:32 07/23/18 12:23 - Medications Medications: Current Medications Acetaminophen (Tylenol 325mg Tab) 650 mg PO Q6H PRN PRN Reason: Pain, Mild (1-3) Amlodipine Besylate (Norvasc) 5 mg PO DAILY [facility] Last Admin: 07/29/18 09:30 Dose: Not Given Escitalopram Oxalate (Lexapro) 20 mg PO HS [facility] Lorazepam (Ativan) 2 mg PO Q6H PRN; Protocol PRN Reason: Anxiety Lorazepam (Ativan) 2 mg IM Q6H PRN; Protocol PRN Reason: Agitation Losartan Potassium (Cozaar) 100 mg PO DAILY [facility] Last Admin: 07/29/18 09:32 Dose: Not Given Metoprolol Tartrate (Lopressor) 25 mg PO BRKDIN [facility] Last Admin: 07/29/18 17:32 Dose: 25 mg Quetiapine Fumarate (Seroquel) 100 mg PO HS [facility]; Protocol Last Admin: 07/28/18 21:17 Dose: 100 mg Quetiapine Fumarate (Seroquel) 100 mg PO DAILY [facility]; Protocol Vitamin B Complex/Vit C/Folic Acid (Nephro-Falguni) 1 tab PO 0800 [facility] Last Admin: 07/29/18 09:29 Dose: 1 tab Ziprasidone (Geodon Cap) 20 mg PO Q6H PRN; Protocol PRN Reason: Agitation Ziprasidone (Geodon Inj) 20 mg IM Q6H PRN; Protocol PRN Reason: Severe Agitation - Labs Labs: 07/28/18 18:20 - Constitutional Appears: Well, Non-toxic, No Acute Distress - Head Exam Head Exam: ATRAUMATIC, NORMOCEPHALIC - Extremities Exam Additional comments: Left LE focused exam VASC: DP and PT 2/4 ; cap refill <3 seconds to all digits; temp gradient warm to cool from proximal to distal 5 and a little warmer at the red swollen area on the dorsum of the foot. NEURO: Protective sensation diminished. DERM: Ecchymosis noted on the dorsum of the toes 1 to 5 on the left foot. Ecchymosis noted on the medial side of the left foot. Erythema and swelling measuring 5 cm X 4 cm noted on the dorsum of the left foot with positive fluctuance. MSKL: pain to palpation of the dorsum left foot at the swelling area, Muscle power 5/5 of the left foot to all groups. - Neurological Exam Neurological Exam: Alert, Awake Assessment and Plan - Assessment and Plan (Free Text) Assessment: 77 year old female patient seen and evaluated at the psych unit for pain, swelling and ecchymosis of the left foot. Plan: Patient seen and evaluated at the bedside. Plan discussed with Dr. Adams Charts, labs and vitals reviewed: Afebrile, No leukocytosis X-ray left foot: Joint space narrowing at the 1st MPJ Arterial doppler: WNL. Surgical shoes ordered and to be applied to both feet while ambulating. Patient planned for bedside I&D with Dr. Adams later today River wrap applied to the left foot and ankle. Podiatry will continue to follow up the patient while in house. <Arash Adams - Last Filed: 07/31/18 07:10> Objective - Vital Signs/Intake and Output Vital Signs (last 24 hours): Temp Pulse Resp BP Pulse Ox 97.4 F L 72 20 90/60 L 100 07/30/18 07:16 07/30/18 19:16 07/30/18 07:16 07/30/18 19:16 07/23/18 12:23 - Medications Medications: Current Medications Acetaminophen (Tylenol 325mg Tab) 650 mg PO Q6H PRN PRN Reason: Pain, Mild (1-3) Amlodipine Besylate (Norvasc) 5 mg PO DAILY [facility] Last Admin: 07/30/18 09:54 Dose: 5 mg Escitalopram Oxalate (Lexapro) 20 mg PO HS [facility] Last Admin: 07/30/18 21:33 Dose: 20 mg Lorazepam (Ativan) 2 mg PO Q6H PRN; Protocol PRN Reason: Anxiety Last Admin: 07/29/18 21:16 Dose: 2 mg Lorazepam (Ativan) 2 mg IM Q6H PRN; Protocol PRN Reason: Agitation Losartan Potassium (Cozaar) 100 mg PO DAILY [facility] Last Admin: 07/30/18 09:55 Dose: 100 mg Metoprolol Tartrate (Lopressor) 25 mg PO BRKDIN [facility] Last Admin: 07/30/18 19:16 Dose: Not Given Quetiapine Fumarate (Seroquel) 100 mg PO HS [facility]; Protocol Last Admin: 07/30/18 21:40 Dose: Not Given Quetiapine Fumarate (Seroquel) 100 mg PO DAILY [facility]; Protocol Last Admin: 07/30/18 09:57 Dose: 100 mg Vitamin B Complex/Vit C/Folic Acid (Nephro-Falguni) 1 tab PO 0800 [facility] Last Admin: 07/30/18 09:54 Dose: 1 tab Ziprasidone (Geodon Cap) 20 mg PO Q6H PRN; Protocol PRN Reason: Agitation Ziprasidone (Geodon Inj) 20 mg IM Q6H PRN; Protocol PRN Reason: Severe Agitation - Labs Labs: 07/28/18 18:20 Attending/Attestation - Attestation I have personally seen and examined this patient.: Yes I have fully participated in the care of the patient.: Yes I have reviewed all pertinent clinical information, including history, physical exam and plan: Yes
--- NOTE | 2018-07-29 19:51 | PN ---
DATE: 07/29/2018 SUBJECTIVE: A 77-year-old female seen at bedside for followup evaluation and management of a painful hematoma on the dorsal aspect of her left foot. She stated that she banged her foot. The patient had banged her foot purposely against a wheelchair four times last week and has pain and ecchymosis since then. The area is tender to the touch and shows a large hematoma on the dorsolateral aspect of the foot. PAST MEDICAL HISTORY: The patient's medical history is significant for CVA, hypertension and psychosis. ALLERGIES: THE PATIENT HAS NO KNOWN DRUG ALLERGIES. MEDICATIONS: All medications are noted in MAR. PHYSICAL EXAMINATION: EXTREMITIES: Palpable pedal pulses noted bilaterally. Dorsal aspect of the left foot presents with a large hematoma that compresses the dorsolateral aspect of her left foot, the area is painful upon palpation. She is able to bear weight on her foot, but experiences pain when the area is touched. The periphery of the wound shows no erythematous or edematous tissue to suggest active cellulitis. ASSESSMENT: Painful, subepidermal hematoma on the dorsolateral aspect of the left foot secondary to self-induced traumatic injury one week ago. PLAN: The patient's foot was cleansed with normal sterile saline. Using an #11 blade, a small stab incision was made into the central aspect of the hematoma, and under gentle manual compression, copious amounts of coagulated blood was evacuated. The area was flushed with copious amounts of normal sterile saline and a dry sterile dressing was applied. The patient is able to bear weight on the affected foot and dressing changes will be done daily. Arash Adams DPM
[2018-07-30] MEDS: Multivitamin Vitamin B Complex (Nephro-Vite) Tab PO SCH (09:54)
--- NOTE | 2018-07-30 11:35 | CP.PCM.PN ---
Subjective - Date & Time of Evaluation Date of Evaluation: 07/30/18 Time of Evaluation: 11:30 - Subjective Subjective: Podiatry progress note for Drs. Church/Bryan 77 year old female patient seen and evaluated with Dr. Church in the psychiatric unit for pain, swelling and ecchymosis of the left foot. Patient states that her foot pain has decreased since yesterday. Patient currently denies any overnight chest pain, shortness of breath, nausea, vomiting, fever, chills, numbness, tingling, confusion. Objective - Vital Signs/Intake and Output Vital Signs (last 24 hours): Temp Pulse Resp BP Pulse Ox 97.4 F L 69 20 135/69 100 07/30/18 07:16 07/30/18 09:55 07/30/18 07:16 07/30/18 09:55 07/23/18 12:23 - Medications Medications: Current Medications Acetaminophen (Tylenol 325mg Tab) 650 mg PO Q6H PRN PRN Reason: Pain, Mild (1-3) Amlodipine Besylate (Norvasc) 5 mg PO DAILY [facility] Last Admin: 07/30/18 09:54 Dose: 5 mg Escitalopram Oxalate (Lexapro) 20 mg PO HS [facility] Last Admin: 07/29/18 21:17 Dose: 20 mg Lorazepam (Ativan) 2 mg PO Q6H PRN; Protocol PRN Reason: Anxiety Last Admin: 07/29/18 21:16 Dose: 2 mg Lorazepam (Ativan) 2 mg IM Q6H PRN; Protocol PRN Reason: Agitation Losartan Potassium (Cozaar) 100 mg PO DAILY [facility] Last Admin: 07/30/18 09:55 Dose: 100 mg Metoprolol Tartrate (Lopressor) 25 mg PO BRKDIN [facility] Last Admin: 07/30/18 09:55 Dose: 25 mg Quetiapine Fumarate (Seroquel) 100 mg PO HS [facility]; Protocol Last Admin: 07/29/18 21:16 Dose: 100 mg Quetiapine Fumarate (Seroquel) 100 mg PO DAILY [facility]; Protocol Last Admin: 07/30/18 09:57 Dose: 100 mg Vitamin B Complex/Vit C/Folic Acid (Nephro-Falguni) 1 tab PO 0800 [facility] Last Admin: 07/30/18 09:54 Dose: 1 tab Ziprasidone (Geodon Cap) 20 mg PO Q6H PRN; Protocol PRN Reason: Agitation Ziprasidone (Geodon Inj) 20 mg IM Q6H PRN; Protocol PRN Reason: Severe Agitation - Labs Labs: 07/28/18 18:20 - Constitutional Appears: Well, Non-toxic, No Acute Distress - Head Exam Head Exam: ATRAUMATIC, NORMOCEPHALIC - Extremities Exam Additional comments: Left LE focused exam VASC: DP and PT 2/4, cap refill <3 seconds to all digits; temp gradient warm to cool from proximal to distal 5 and a little warmer at dorso-lateral aspect of the foot NEURO: Protective sensation diminished. DERM: Ecchymosis noted on the dorsum of the toes 1 to 5 on the left foot. Ecchymosis noted on the medial side of the left foot. Erythema and edema measuring 5 cm X 4 cm noted on the dorsum of the left foot with positive fluctuance MSKL: pain to palpation of the dorsum left foot at the swelling area, Muscle power 5/5 of the left foot to all groups. - Neurological Exam Neurological Exam: Alert, Awake - Psychiatric Exam Psychiatric exam: Normal Affect, Normal Mood Assessment and Plan - Assessment and Plan (Free Text) Assessment: 77 year old female patient seen and evaluated at the psych unit for pain, swelling and ecchymosis of the left foot Plan: Patient seen and evaluated at the bedside with Dr. Church Plan discussed with Dr. Church Charts, labs and vitals reviewed: Afebrile, No leukocytosis X-ray left foot: Joint space narrowing at the 1st MPJ Arterial doppler reviewed Surgical shoes ordered and to be applied to both feet while ambulating No surgical intervention at this time Patient wound will be monitored, Mepilex applied at this time River wrap applied to the left foot and ankle. Podiatry will continue to follow up the patient while in house
--- NOTE | 2018-07-30 11:38 | CP.PCM.PCO ---
Physician Communication Note - Physician Communication Note Physician Communication Note: Podiatry recommends patient be placed on IV Abx for cellulitis to RLE
--- NOTE | 2018-07-30 15:05 | PCM.PYCHPN ---
Psychiatric Progress Note - Psychiatric Progress Note Patient seen today, length of contact: 30 minutes Patient Chief Complaint: "I feel better, I want to continue all medications because medications helping me to relax, I am not confused anymore.." Problems Identified/Issues Discussed: Medication management, discharge plan, after care plan. Medical Problems: See HPI. The patient complaining of foot pain, medical team involved, podiatry team involved, most likely patient has cellulitis. Diagnostic Results: Lab Results 07/24/18 07:45: RPR Nonreactive 07/24/18 07:45: TSH 3rd Generation 0.19 L 07/24/18 07:45: Fasting Glucose 100, Triglycerides 165 H, Cholesterol 180, LDL Cholesterol Direct 109, HDL Cholesterol 34 Vital Signs Temp Pulse Resp BP Pulse Ox 07/27/18 16:00 69 154/83 H 07/27/18 08:47 69 133/74 07/27/18 08:46 69 133/74 07/27/18 07:00 97.9 F 69 17 133/74 07/26/18 07:00 98.4 F 73 18 113/76 07/25/18 16:00 59 L 122/67 07/25/18 07:37 99.2 F 70 20 86/53 L 07/24/18 16:14 65 115/70 07/24/18 07:10 98.2 F 81 20 104/61 07/23/18 17:17 69 150/80 07/23/18 16:00 69 150/80 07/23/18 12:23 98.8 F 67 18 141/76 100 Temp Pulse Resp BP Pulse Ox 97.4 F L 69 20 135/69 100 07/30/18 07:16 07/30/18 09:55 07/30/18 07:16 07/30/18 09:55 07/23/18 12:23 DSM 5 Symptoms Update: Shortly, patient is a 77-year-old female, but not known previous psychiatric history, patient had history of delirium, patient initially was admitted to the medical side for evaluation of altered mental status, looking for her parents and sister who have been for a while, on the medical side patient was treated for hypertension, delirium, overall patient improved, but patient presented to be disorganized, paranoid, was insisting that her family is alive, was saying that her mother is waiting for her to come back home, patient reported that she had conflict with her sister, patient was not safe to be discharged back home, required further hospitalization to the psychiatric inpatient unit. Patient was able to sign consent for treatment into the psychiatric inpatient unit because patient recognized that she had hallucinations and delusions. Patient agreed to take medications, patient required further observation/stabilization/med management. Patient was seen today in her room with mental health worker and medical student. Patient presented somewhat better, patient reported that she feels "much better, I want to continue medications, I feel more relaxed, I am not confused anymore". Patient denies feeling depressed, denied thoughts of harm to self or others, denied intent or plan As per podiatry note patient most likely would need IV antibiotics, Dr. Bautista was notified. overall patient presents much better compared with admission. So far patient is compliant with medications, no side effects observed or reported, aims 0, no EPS. No agitation, no aggression. Diagnostic Results: Psychosis NOS Rule out major depressive disorder severe with psychosis Rule out dementia Delirium is improving Medication Change: Yes (Adjusted yesterday) Medical Record Reviewed: Yes Consults ordered or reviewed: Medical consult appreciated, please see notes for more detailed information Mental Status Examination - Cognitive Function Orientation: Person, Place, Situation Attention: Poor (Improvement) Concentration: Poor (Somewhat better) Association: Loose (Better) Fund of Knowledge: WNL - Mood Mood: Depressed ("I am fine.."), Anxious - Affect Affect: Constricted ( more reactive, mood congruent) - Formal Thought Process Formal Thought Process: Delusions (Denied), Paranoia (Denied) - Suicidal Ideation Suicidal Ideation: No - Homicidal Ideation Homicidal Ideation: No Goal/Treatment Plan - Goal/Treatment Plan Need for Continued Stay: Remain at risks for inpatient hospitalization, Severe depression anxiety, Discharge may exacerbated symptoms, Severe functional impairment Progress Toward Problem(s) and Goals/Treatment Plan: Milieu/structure/supportive therapy SW consultation for discharge plan and social issues Med management: Lexapro 20 mg daily for depression as well as anxiety Seroquel 100 mg daily and 100 mg at the nighttime for psychosis and mood stabilization Family involvement Follow up on labs Will monitor closely Pt was educated about risk/benefits and alternatives of medications, coping strategies (safety plan, suicide prevention), relapse prevention, importance of follow up with psychiatrist and therapist, stay away from drugs/alcohol/smoking After the patient's psychosis will be cleared, plan is to call neurology for dementia assessment collaterals from pt's daughter discussed with Dr. Bautista 3 recommended IV antibiotics, awaiting for medical team response. Estimated Date of D/C: 07/31/18
[2018-07-31] MEDS: Multivitamin Vitamin B Complex (Nephro-Vite) Tab PO SCH (09:50)
--- NOTE | 2018-07-31 12:04 | PCM.BM ---
<Franchesca Yin Y - Last Filed: 07/31/18 12:03> Treatment Plan Problems - Problems identified on initial assessmt Hopelessness/Helplessness Date Initiated: 07/23/18 Time Initiated: 13:00 Assessment reference: NA Status: Active Priority: 1 Feelings of Worthlessness Date Initiated: 07/23/18 Time Initiated: 13:00 Assessment reference: NA Status: Active Priority: 2 Ineffective Coping Date Initiated: 07/23/18 Time Initiated: 13:00 Assessment reference: NA Status: Active Priority: 3 Treatment assets and liabiliti Patient Assests: cooperative, ADL independent, negotiates basic needs, good interpersonal skills Patient Liabilities: relationship conflicts, medical problems, imparied memory - Milieu Protocol Maintain good personal hygiene: daily Encourage regular showers, daily Remind patient to perform daily oral care, every shift Assist patient to perform ADL's Maintain personal safety: every shift Educate patient to report safety concerns to staff, every shift Monitor environment for contraband/sharps Medication safety: Monitor for expected outcome, potential side effects: every shift, Assess barriers to learning: every shift, Assess readiness for medication education: every shift Milieu Narrative: Milieu/structure/supportive therapy SW consultation for discharge plan and social issues Med management: Lexapro 20 mg daily for depression as well as anxiety Seroquel 100 mg daily and 100 mg at the nighttime for psychosis and mood stabilization Family involvement Follow up on labs Will monitor closely Pt was educated about risk/benefits and alternatives of medications, coping strategies (safety plan, suicide prevention), relapse prevention, importance of follow up with psychiatrist and therapist, stay away from drugs/alcohol/smoking After the patient's psychosis will be cleared, plan is to call neurology for dementia assessment collaterals from pt's daughter discussed with Dr. Bautista 3 recommended IV antibiotics, awaiting for medical team response. Family Contact Family involvement: Famliy/SO not involved - Goals for Treatment Patient goals for treatment: Less depression Discharge/Continuing Care - Education Needs Education Needs: Patient Medication, Patient Diagnosis/Disease Process, Patient Coping Skills, Patient Anger Management skills, Patient Placement options, Patient Community resources, Patient Activities of Daily Living, Patient Pain, Patient Nutrition, Patient Uses of Medical Equipment, Patient Health Practices/Safety, Patient Personal Hygiene/Grooming, Patient Aftercare Safety Plan - Discharge Discharge Criteria: Tolerates medication w/o severe side effects - Treatment Team Participation Patient/Family/SO Statement: Milieu/structure/supportive therapy SW consultation for discharge plan and social issues Med management: Lexapro 20 mg daily for depression as well as anxiety Seroquel 100 mg daily and 100 mg at the nighttime for psychosis and mood stabil ization Family involvement Follow up on labs Will monitor closely Pt was educated about risk/benefits and alternatives of medications, coping strategies (safety plan, suicide prevention), relapse prevention, importance of follow up with psychiatrist and therapist, stay away from drugs/alcohol/smoking After the patient's psychosis will be cleared, plan is to call neurology for dementia assessment collaterals from pt's daughter discussed with Dr. Bautista 3 recommended IV antibiotics, awaiting for medical team response. 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
--- NOTE | 2018-07-31 12:36 | PN ---
DATE: 07/31/2018 SUBJECTIVE: This is a 77-year-old female seen and evaluated in the psychiatric unit for expressed hematoma on the dorsal aspect of her left foot. She states that she has no pain in the foot. She denies any fever, chills, nausea or vomiting. Has not had any shortness of breath. All medications noted in MAR. PHYSICAL EXAMINATION: VITAL SIGNS: Temperature 97.7, pulse rate 69, blood pressure 121/71, respiratory rate 20. EXTREMITIES: Palpable pedal pulses noted bilaterally. Capillary filling time is within normal limits. Protective sensation is diminished using 5.07 g monofilament wire testing bilaterally. Dorsal aspect of the left foot presents with decreasing ecchymosis. There is decreasing fluctuance and there is no calor noted. She has some discomfort upon palpation, but no pain. There is no drainage. There are no open wounds. The area is void of any cellulitic activity. LABORATORY DATA: Taken on 07/28/2018 reveal white count of 10.3, hemoglobin of 12.7, hematocrit of 41.6, platelet count of 405. ASSESSMENT: This is a 77-year-old patient seen in the psychiatric unit for evacuated hematoma on the left foot with decreasing edema and erythema and pain. PLAN: The patient was seen and evaluated. Charts, labs and vitals were reviewed. The left foot was cleansed with normal sterile saline and application of a dry sterile dressing was applied. The patient was told she can ambulate with the surgical shoe, but was told to not shower until further notice. The ecchymosis is resolving slowly from her traumatic hematoma to the left foot. The patient will be seen and followed daily. Arash Adams DPM
--- NOTE | 2018-07-31 16:18 | PCM.PYCHPN ---
Psychiatric Progress Note - Psychiatric Progress Note Patient seen today, length of contact: 30 minutes Patient Chief Complaint: "I feel better, I want to continue all medications because medications helping me to relax, I am not confused anymore.." Problems Identified/Issues Discussed: Medication management, discharge plan, after care plan. Medical Problems: See HPI. The patient complaining of foot pain, medical team involved, podiatry team involved, most likely patient has cellulitis. Diagnostic Results: Lab Results 07/24/18 07:45: RPR Nonreactive 07/24/18 07:45: TSH 3rd Generation 0.19 L 07/24/18 07:45: Fasting Glucose 100, Triglycerides 165 H, Cholesterol 180, LDL Cholesterol Direct 109, HDL Cholesterol 34 Vital Signs Temp Pulse Resp BP Pulse Ox 07/27/18 16:00 69 154/83 H 07/27/18 08:47 69 133/74 07/27/18 08:46 69 133/74 07/27/18 07:00 97.9 F 69 17 133/74 07/26/18 07:00 98.4 F 73 18 113/76 07/25/18 16:00 59 L 122/67 07/25/18 07:37 99.2 F 70 20 86/53 L 07/24/18 16:14 65 115/70 07/24/18 07:10 98.2 F 81 20 104/61 07/23/18 17:17 69 150/80 07/23/18 16:00 69 150/80 07/23/18 12:23 98.8 F 67 18 141/76 100 Temp Pulse Resp BP Pulse Ox 97.4 F L 69 20 135/69 100 07/30/18 07:16 07/30/18 09:55 07/30/18 07:16 07/30/18 09:55 07/23/18 12:23 DSM 5 Symptoms Update: Shortly, patient is a 77-year-old female, but not known previous psychiatric history, patient had history of delirium, patient initially was admitted to the medical side for evaluation of altered mental status, looking for her parents and sister who have been for a while, on the medical side patient was treated for hypertension, delirium, overall patient improved, but patient presented to be disorganized, paranoid, was insisting that her family is alive, was saying that her mother is waiting for her to come back home, patient reported that she had conflict with her sister, patient was not safe to be discharged back home, required further hospitalization to the psychiatric inpatient unit. Patient was able to sign consent for treatment into the psychiatric inpatient unit because patient recognized that she had hallucinations and delusions. Patient agreed to take medications, patient required further observation/stabilization/med management. Patient was seen today at the treatment team meeting room, pt ambulates using wheelchair, as per staff pt is unsteady. Podiatry recommended IV abx, discussed wt , po abx started. at present moment pt is awaiting for PT evaluation. in regards of the pt's symptoms, pt presented to be less psychotic, more organized, but flat affect, disengaged. Patient denies feeling depressed, denied thoughts of harm to self or others, denied intent or plan overall patient presents much better compared with admission. So far patient is compliant with medications, no side effects observed or reported, aims 0, no EPS. No agitation, no aggression. Diagnostic Results: Psychosis NOS Rule out major depressive disorder severe with psychosis Rule out dementia Delirium is improving Medication Change: No (Adjusted yesterday) Medical Record Reviewed: Yes Consults ordered or reviewed: Medical consult appreciated, please see notes for more detailed information Podiatry consult appreciated PT eval is pending Mental Status Examination - Cognitive Function Orientation: Person, Place, Situation Attention: Poor (Improvement) Concentration: Poor (Somewhat better) Association: Loose (Better) Fund of Knowledge: WNL - Mood Mood: Depressed ("I am fine.."), Anxious - Affect Affect: Constricted ( more reactive, mood congruent) - Formal Thought Process Formal Thought Process: Delusions (Denied), Paranoia (Denied) - Suicidal Ideation Suicidal Ideation: No - Homicidal Ideation Homicidal Ideation: No Goal/Treatment Plan - Goal/Treatment Plan Need for Continued Stay: Remain at risks for inpatient hospitalization, Severe depression anxiety, Discharge may exacerbated symptoms, Severe functional impairment Progress Toward Problem(s) and Goals/Treatment Plan: Milieu/structure/supportive therapy SW consultation for discharge plan and social issues Med management: Lexapro 20 mg daily for depression as well as anxiety Seroquel 100 mg daily and 100 mg at the nighttime for psychosis and mood stabilization Family involvement Follow up on labs Will monitor closely Pt was educated about risk/benefits and alternatives of medications, coping strategies (safety plan, suicide prevention), relapse prevention, importance of follow up with psychiatrist and therapist, stay away from drugs/alcohol/smoking After the patient's psychosis will be cleared, plan is to call neurology for dementia assessment collaterals from pt's daughter discussed with Dr. Bautista podiatry recommended IV antibiotics, medical team started po abx awaiting for PT eval most likely will be d/c on friday. Estimated Date of D/C: 08/03/18
--- NOTE | 2018-07-31 23:38 | PN ---
DATE: 07/31/2018 HOSPITAL COURSE: The patient was seen this Friday morning in the day room, I wheeled her in her chair to her room where we spoke for while. She is hoping forward to discharge to home and is doing well. Blood pressure is well controlled. Swelling in the foot has gone down quite a bit, still some residual erythema from the initial swelling, does not feel warm or cellulitic. I see that I and D was performed. The incision site is healed nicely. Physical therapy has been ordered to improve her ambulation prior to discharge to home. Later in the day, I spoke with Dr. Victoria. I will give some empiric antibiotics to cover the foot incision site. Urinalysis that came back but is most likely contaminant of gram positive. No isolation or sensitivities were done because of likely contaminant. The patient will stay in the hospital for some additional physical therapy and conditioning, get stronger on her feet prior to discharge to home as she voiced this concern to the hospital staff and that will give us further time to monitor her and adjust medication, monitor her blood pressure, use an oral antibiotics for our concerns for possible cellulitis on that foot and recheck labs in the morning. Fahad Bautista MD MTDD
--- NOTE | 2018-08-01 00:47 | PN ---
DATE: 07/23/2018 The patient was seen this evening on 5B, room 519, bed 1. I spoke to her at length in the room going over her condition and reviewing situation since admission. She is no longer hearing voices or having visual hallucination of people who have , namely her mother, father, and sister. She feels much better, is willing to take her medicines and looking forward to discharge to home. Follow up by Podiatry is noted and appreciated. Looks like I and D was done to the dorsum of the foot. X-rays were negative. SHAMA's were unremarkable. This does not look like a cellulitis to me. Still not in a manrique to put her on antibiotics. She remains afebrile with a normal white count. May recheck the white count again in the future, but hopefully she is looking to moving in the direction of having discharge tomorrow. We will continue to follow. Medications were reviewed. Case discussed with Dr. Esme Byers. I will see the patient in the morning. Fahad Bautista MD MTDBeulah
[2018-08-01 07:51] LABS: BASO # 0.02 K/mm3 (0.0-2.0); BASO % 0.3 % (0.0-3.0); EOS # 0.2 (0.0-0.7); EOS % 3.9 % (1.5-5.0); LYMPH # 1.9 (1.2-3.4); LYMPH % 31.4 % (22.0-35.0); MEAN CELL VOLUME 87.8 fl (80.0-105.0); MEAN CORPUSCULAR HEMOGLOBIN 26.6 pg (25.0-35.0); MEAN CORPUSCULAR HGB CONC 30.3 g/dl (31.0-37.0); MEAN PLATELET VOLUME 9.6 fl (7.0-11.0); MONO # 0.7 (0.1-0.6); MONO % 11.3 % (1.0-6.0); RBC 3.94 10^6/uL (3.5-6.1); RED CELL DISTRIBUTION WIDTH 15.2 % (11.5-14.5); WHITE BLOOD COUNT 6.1 10^3/uL (4.5-11.0)
[2018-08-01 07:53] LABS: HEMOGLOBIN 10.5 g/dL (12.0-16.0)
[2018-08-01 08:11] LABS: BLOOD UREA NITROGEN 24 mg/dL (7-21); GFR NON-AFRICAN AMERICAN 54
[2018-08-01] MEDS: Multivitamin Vitamin B Complex (Nephro-Vite) Tab PO SCH (09:19)
--- NOTE | 2018-08-01 10:39 | PCM.PYCHPN ---
Psychiatric Progress Note - Psychiatric Progress Note Patient seen today, length of contact: 30 minutes Problems Identified/Issues Discussed: I reviewed recent notes, patient is known to me from prior interviews on the medical floor as well as the psychiatric unit. She has been quiet, guarded and preoccupied on the unit with some improvement in organization. Not observed to be responding to internal stimuli. She still appears depressed, confused and wandering at times but not overtly psychotic. Generally flat and passive. There were no behavioral issues over the weekend. Diagnostic Results: Psychosis NOS Rule out major depressive disorder severe with psychosis Rule out dementia Delirium is improving Medication Change: No (Adjusted yesterday) Medical Record Reviewed: Yes Mental Status Examination - Cognitive Function Orientation: Person, Place, Situation Attention: Poor (Improvement) Concentration: Poor (Somewhat better) Association: Loose (Better) Fund of Knowledge: WNL - Mood Mood: Depressed ("I am fine.."), Anxious - Affect Affect: Constricted ( more reactive, mood congruent) - Speech Speech: Soft - Formal Thought Process Formal Thought Process: Delusions (Denied), Paranoia (Denied) - Suicidal Ideation Suicidal Ideation: No - Homicidal Ideation Homicidal Ideation: No Goal/Treatment Plan - Goal/Treatment Plan Need for Continued Stay: Remain at risks for inpatient hospitalization, Severe depression anxiety, Discharge may exacerbated symptoms, Severe functional impairment Progress Toward Problem(s) and Goals/Treatment Plan: * c/w current treatment and plan * No new weekend lab results thus far * Vitals reviewed and noted below: Selected Entries 07/31/18 07/31/18 07:31 17:42 Temperature 97.7 F Pulse Rate 69 70 Respiratory 20 Rate Blood Pressure 121/71 132/68 Estimated Date of D/C: 08/03/18
--- NOTE | 2018-08-01 14:12 | PN ---
DATE: 08/01/2018 SUBJECTIVE: This is a 77-year-old female seen in the psychiatric unit for evaluation and management of an expressed hematoma on the dorsal aspect of her left foot. The patient states she has no pain in the affected area. She denies experiencing any fever, chills, nausea, or shortness of breath. She has no discomfort or pain when ambulating. OBJECTIVE: VITAL SIGNS: The patient's vital signs reveal temperature of 97.7, pulse rate 66, blood pressure 116/73, respiratory rate 17. EXTREMITIES: Palpable pedal pulses noted bilaterally. Protective sensation is diminished using 5.07 g monofilament wire testing bilaterally. Capillary refilling time is within normal limits. Dorsal aspect of the left foot present with decreasing edema, erythema, and ecchymosis. There is resolved stab incision site that emits no drainage or purulence. The area is void of any calor or erythema and no cellulitic activity seen. LABORATORY DATA: Most recent laboratory findings reveal white count of 6.1, hemoglobin of 10.5, hematocrit of 34.6, platelet count of 293. ASSESSMENT: A 77-year-old female seen in psychiatric unit for continued evaluation and management of an evacuated hematoma on the dorsal left foot. PLAN: The patient was seen and evaluated. Charts, labs, and vitals were reviewed. Left foot was sponged with normal sterile saline and an application of dry sterile dressing was applied. The patient was told that she can shower at this point and she can ambulate with surgical shoes. She was told to follow up in the office once discharged and she can resume normal activities. Arash Adams DPM
--- NOTE | 2018-08-01 14:27 | PN ---
DATE: 08/01/2018 SUBJECTIVE: The patient was seen this Friday morning on 5B in her room 519, Bed 1. Initially, she was sleeping but woke and was at her usual self. Mental status is clear. There is no longer any visual hallucinations. She is doing relatively well. I asked her about physical therapy. She tells me she walked with the nurses as well as walked with the therapist. Her foot is feeling better. There is minimal erythema. Swelling has reduced. Her ecchymoses are improved after her stubbing her foot at home x2 prior to admission. Repeat labs show her white count to be normal. She is afebrile. Urinalysis and urine culture grew only Staphylococcus, which was most likely skin contaminant. I understand the patient is completely asymptomatic. Her blood pressure is well controlled, so from a medical perspective, she is doing well. With additional physical therapy and ambulation, she will hopefully be ready for discharge to home after continued medication adjustment and I will continue to follow. We will see her in the morning as well. Fahad Bautista MD
[2018-08-02] MEDS: Multivitamin Vitamin B Complex (Nephro-Vite) Tab PO SCH (08:50)
--- NOTE | 2018-08-02 10:50 | PCM.PYCHPN ---
Psychiatric Progress Note - Psychiatric Progress Note Patient seen today, length of contact: 30 minutes Problems Identified/Issues Discussed: I reviewed recent notes, patient is known to me from prior interviews on the medical floor as well as the psychiatric unit. She has been quiet, guarded and preoccupied on the unit with some improvement in organization. She reports "I guess I am doing better". Not observed to be responding to internal stimuli. She still appears depressed, confused and wandering at times but not overtly psychotic. Generally flat and passive. Patient denied any side effects from her medication or any new discomfort or pain. There were no behavioral issues over the weekend. Diagnostic Results: Psychosis NOS Rule out major depressive disorder severe with psychosis Rule out dementia Delirium is improving Medication Change: No ( ) Medical Record Reviewed: Yes Mental Status Examination - Cognitive Function Orientation: Person, Place, Situation Attention: Poor (Improvement) Concentration: Poor (Somewhat better) Association: Loose (Better) Fund of Knowledge: WNL - Mood Mood: Depressed ("I guess I am getting better"), Anxious - Affect Affect: Constricted ( more reactive, mood congruent) - Speech Speech: Soft - Formal Thought Process Formal Thought Process: Delusions (Denied), Paranoia (Denied) - Suicidal Ideation Suicidal Ideation: No - Homicidal Ideation Homicidal Ideation: No Goal/Treatment Plan - Goal/Treatment Plan Need for Continued Stay: Remain at risks for inpatient hospitalization, Severe depression anxiety, Discharge may exacerbated symptoms, Severe functional impairment Progress Toward Problem(s) and Goals/Treatment Plan: * c/w current treatment and plan * Appreciate f/u by Arash Adams DPM and Dr. Bautista on 08/01/18 * Vitals reviewed and noted below: Selected Entries 08/01/18 08/01/18 07:00 17:15 Temperature 97.7 F Pulse Rate 66 73 Respiratory 17 Rate Blood Pressure 116/73 129/76 * New weekend lab results noted below: Laboratory Results - last 72 hr 08/01/18 08/01/18 06:10 06:10 WBC 6.1 D RBC 3.94 Hgb 10.5 L D Hct 34.6 L MCV 87.8 MCH 26.6 MCHC 30.3 L RDW 15.2 H Plt Count 293 MPV 9.6 Neut % (Auto) 53.1 Lymph % (Auto) 31.4 Bill[place] % (Auto) 11.3 H Eos % (Auto) 3.9 Baso % (Auto) 0.3 Lymph # (Auto) 1.9 [place] # (Auto) 0.7 H Eos # (Auto) 0.2 Baso # (Auto) 0.02 Absolute Neuts (auto) 3.23 Sodium 139 Potassium 4.4 Chloride 107 Carbon Dioxide 25 Anion Gap 12 BUN 24 H Creatinine 1.0 Est GFR ( Amer) > 60 Est GFR (Non-Af Amer) 54 Random Glucose 93 Calcium 9.0 Estimated Date of D/C: 08/03/18
--- NOTE | 2018-08-02 21:08 | PN ---
DATE: 08/02/2018 SUBJECTIVE: The patient was seen this Friday morning in 5B. She was watching television in the dayroom when I came to see her. I wheeled her in her wheelchair to her room and we spoke. She is doing well, feels well, and looking forward to discharge home. She feels that her ambulation is improved, but staff reports she is actually ambulating better in her slippers than in the surgical boot. She is eating well. She has no GI or other complaints. Feels stable from a mental health standpoint, and is hoping to go home soon. PHYSICAL EXAMINATION: GENERAL: Swelling of the foot and ecchymosis to continue to improve nicely. There is much less erythema. There is a tiny healing laceration to the dorsum of the foot from the drainage procedure that was performed. She remains afebrile and medically stable. ASSESSMENT AND PLAN: Blood pressure remains well controlled and we will continue to follow. Fahad Bautista MD MTDD
[2018-08-03] MEDS: Multivitamin Vitamin B Complex (Nephro-Vite) Tab PO SCH (08:58)
--- NOTE | 2018-08-03 13:46 | CP.PCM.PN ---
Subjective - Date & Time of Evaluation Date of Evaluation: 08/03/18 Time of Evaluation: 13:42 - Subjective Subjective: Podiatry progress note for Drs. Church/Bryan 77 year old female patient seen and evaluated in the psychiatric unit for pain, swelling and ecchymosis of the left foot, 5 days s/p bed side I&D of left foot hematoma. Patient was sleeping at the visit time. As per her chart there was no overnight chest pain, shortness of breath, nausea, vomiting, fever, chills, numbness, tingling, confusion. Objective - Vital Signs/Intake and Output Vital Signs (last 24 hours): Temp Pulse Resp BP Pulse Ox 97.1 F L 74 20 122/73 100 08/03/18 07:25 08/03/18 09:02 08/03/18 07:25 08/03/18 09:02 07/23/18 12:23 - Medications Medications: Current Medications Acetaminophen (Tylenol 325mg Tab) 650 mg PO Q6H PRN PRN Reason: Pain, Mild (1-3) Last Admin: 07/31/18 18:31 Dose: 650 mg Amlodipine Besylate (Norvasc) 5 mg PO DAILY [facility] Last Admin: 08/03/18 08:58 Dose: 5 mg Cephalexin Monohydrate (Keflex) 250 mg PO QID [facility]; Protocol Last Admin: 08/03/18 08:58 Dose: 250 mg Escitalopram Oxalate (Lexapro) 20 mg PO HS [facility] Last Admin: 08/02/18 21:06 Dose: 20 mg Lorazepam (Ativan) 2 mg PO Q6H PRN; Protocol PRN Reason: Anxiety Last Admin: 08/02/18 21:05 Dose: 2 mg Lorazepam (Ativan) 2 mg IM Q6H PRN; Protocol PRN Reason: Agitation Losartan Potassium (Cozaar) 100 mg PO DAILY [facility] Last Admin: 08/03/18 08:58 Dose: 100 mg Metoprolol Tartrate (Lopressor) 25 mg PO BRKDIN [facility] Last Admin: 08/03/18 09:02 Dose: 25 mg Quetiapine Fumarate (Seroquel) 100 mg PO HS [facility]; Protocol Last Admin: 08/02/18 21:06 Dose: 100 mg Quetiapine Fumarate (Seroquel) 100 mg PO DAILY [facility]; Protocol Last Admin: 08/03/18 08:57 Dose: 100 mg Vitamin B Complex/Vit C/Folic Acid (Nephro-Falguni) 1 tab PO 0800 [facility] Last Admin: 08/03/18 08:58 Dose: 1 tab Zaleplon (Sonata) 5 mg PO HS PRN PRN Reason: Insomnia Ziprasidone (Geodon Cap) 20 mg PO Q6H PRN; Protocol PRN Reason: Agitation Ziprasidone (Geodon Inj) 20 mg IM Q6H PRN; Protocol PRN Reason: Severe Agitation - Labs Labs: 08/01/18 06:10 08/01/18 06:10 - Constitutional Appears: Well, Non-toxic, No Acute Distress - Head Exam Head Exam: ATRAUMATIC, NORMOCEPHALIC - Extremities Exam Additional comments: Left LE focused exam VASC: DP and PT 2/4, cap refill <3 seconds to all digits; temp gradient warm to cool from proximal to distal. NEURO: Protective sensation diminished. DERM: Ecchymosis noted on the dorsum of the toes 1 to 5 on the left foot, improving. Ecchymosis noted on the medial side of the left foot, improving. I&D incision site looks clean, dry and intact with no drainage or erythema, healing. MSKL: No pain to palpation of the dorsum left foot, Muscle power 5/5 of the left foot to all groups. Assessment and Plan - Assessment and Plan (Free Text) Assessment: 77 year old female patient seen and evaluated at the psych unit for pain, swelling and ecchymosis of the left foot Plan: Patient seen and evaluated at the bedside. Plan discussed with Dr. Church Charts, labs and vitals reviewed: Afebrile, No leukocytosis X-ray left foot: Joint space narrowing at the 1st MPJ Arterial doppler reviewed: Normal SHAMA and PVR at rest b/l. Surgical shoes to be applied to both feet while ambulating Patient wound will be monitored, Mepilex applied at this time Mepilex applied to the left foot I&D site. Podiatry will continue to follow up the patient while in house
--- NOTE | 2018-08-03 15:20 | PCM.PYCHPN ---
Psychiatric Progress Note - Psychiatric Progress Note Patient seen today, length of contact: 30 minutes Patient Chief Complaint: "......" pt sleeping/snoring/mumbling.. Problems Identified/Issues Discussed: Medication management, discharge plan, after care plan. Medical Problems: See HPI. The patient complaining of foot pain, medical team involved, podiatry team involved, most likely patient has cellulitis. Diagnostic Results: Lab Results 07/24/18 07:45: RPR Nonreactive 07/24/18 07:45: TSH 3rd Generation 0.19 L 07/24/18 07:45: Fasting Glucose 100, Triglycerides 165 H, Cholesterol 180, LDL Cholesterol Direct 109, HDL Cholesterol 34 Vital Signs Temp Pulse Resp BP Pulse Ox 07/27/18 16:00 69 154/83 H 07/27/18 08:47 69 133/74 07/27/18 08:46 69 133/74 07/27/18 07:00 97.9 F 69 17 133/74 07/26/18 07:00 98.4 F 73 18 113/76 07/25/18 16:00 59 L 122/67 07/25/18 07:37 99.2 F 70 20 86/53 L 07/24/18 16:14 65 115/70 07/24/18 07:10 98.2 F 81 20 104/61 07/23/18 17:17 69 150/80 07/23/18 16:00 69 150/80 07/23/18 12:23 98.8 F 67 18 141/76 100 Temp Pulse Resp BP Pulse Ox 97.4 F L 69 20 135/69 100 07/30/18 07:16 07/30/18 09:55 07/30/18 07:16 07/30/18 09:55 07/23/18 12:23 DSM 5 Symptoms Update: Shortly, patient is a 77-year-old female, but not known previous psychiatric history, patient had history of delirium, patient initially was admitted to the medical side for evaluation of altered mental status, looking for her parents and sister who have been for a while, on the medical side patient was treated for hypertension, delirium, overall patient improved, but patient presented to be disorganized, paranoid, was insisting that her family is alive, was saying that her mother is waiting for her to come back home, patient reported that she had conflict with her sister, patient was not safe to be discharged back home, required further hospitalization to the psychiatric inpatient unit. Patient was able to sign consent for treatment into the psychiatric inpatient unit because patient recognized that she had hallucinations and delusions. Patient agreed to take medications, patient required further observation/stabilization/med management. Patient was seen today in her room, pt was not able to sleep at night needed to be medicated with Ativan, pt was opening her eyes, mumbling something and falling back to sleep. as per 's report pt was very confused and was looking for her family members. pt was seen by PT, recommended PT home, discussed with PMD. overall patient presents much better compared with admission. So far patient is compliant with medications, no side effects observed or reported, aims 0, no EPS. No agitation, no aggression. Diagnostic Results: Psychosis NOS Rule out major depressive disorder severe with psychosis Rule out dementia Delirium is improving Medication Change: Yes (sonata added) Medical Record Reviewed: Yes Consults ordered or reviewed: Medical consult appreciated, please see notes for more detailed information Podiatry consult appreciated PT eval recommend home therapy Mental Status Examination - Cognitive Function Orientation: Person, Place, Situation Attention: Poor (Improvement) Concentration: Poor (Somewhat better) Association: Loose (Better) Fund of Knowledge: WNL - Mood Mood: Depressed ("I guess I am getting better"), Anxious - Affect Affect: Constricted ( more reactive, mood congruent) - Speech Speech: Soft - Formal Thought Process Formal Thought Process: Delusions (Denied), Paranoia (Denied) - Suicidal Ideation Suicidal Ideation: No - Homicidal Ideation Homicidal Ideation: No Goal/Treatment Plan - Goal/Treatment Plan Need for Continued Stay: Remain at risks for inpatient hospitalization, Severe depression anxiety, Discharge may exacerbated symptoms, Severe functional impairment Progress Toward Problem(s) and Goals/Treatment Plan: Milieu/structure/supportive therapy SW consultation for discharge plan and social issues Med management: Lexapro 20 mg daily for depression as well as anxiety Seroquel 100 mg daily and 100 mg at the nighttime for psychosis and mood stabilization Family involvement Follow up on labs Will monitor closely Pt was educated about risk/benefits and alternatives of medications, coping strategies (safety plan, suicide prevention), relapse prevention, importance of follow up with psychiatrist and therapist, stay away from drugs/alcohol/smoking After the patient's psychosis will be cleared, plan is to call neurology for dementia assessment podiatry recommended IV antibiotics, medical team started po abx PT eval with home services based on report pt cannot be safely discharged discussed with Dr. Bautista about possible placement in [facility], but patient is to be in agreement. Estimated Date of D/C: 08/03/18
[2018-08-04] MEDS: Multivitamin Vitamin B Complex (Nephro-Vite) Tab PO SCH (09:59)
--- NOTE | 2018-08-04 12:08 | CP.PCM.PN ---
Subjective - Date & Time of Evaluation Date of Evaluation: 08/04/18 Time of Evaluation: 12:06 - Subjective Subjective: Podiatry progress note for Drs. Church/Bryan 77 year old female patient seen and evaluated in the psychiatric unit for pain, swelling and ecchymosis of the left foot, 6 days s/p bed side I&D of left foot hematoma. Patient was sitting in bed and NAD. She denies any overnight chest pain, shortness of breath, nausea, vomiting, fever, chills, numbness, tingling, confusion. Objective - Vital Signs/Intake and Output Vital Signs (last 24 hours): Temp Pulse Resp BP Pulse Ox 98.2 F 68 18 139/76 100 08/04/18 07:00 08/04/18 10:01 08/04/18 07:00 08/04/18 10:01 07/23/18 12:23 - Medications Medications: Current Medications Acetaminophen (Tylenol 325mg Tab) 650 mg PO Q6H PRN PRN Reason: Pain, Mild (1-3) Last Admin: 07/31/18 18:31 Dose: 650 mg Amlodipine Besylate (Norvasc) 5 mg PO DAILY [facility] Last Admin: 08/04/18 09:59 Dose: 5 mg Cephalexin Monohydrate (Keflex) 250 mg PO QID [facility]; Protocol Last Admin: 08/04/18 10:01 Dose: 250 mg Escitalopram Oxalate (Lexapro) 20 mg PO HS [facility] Last Admin: 08/03/18 21:21 Dose: 20 mg Lorazepam (Ativan) 2 mg PO Q6H PRN; Protocol PRN Reason: Anxiety Last Admin: 08/02/18 21:05 Dose: 2 mg Lorazepam (Ativan) 2 mg IM Q6H PRN; Protocol PRN Reason: Agitation Losartan Potassium (Cozaar) 100 mg PO DAILY [facility] Last Admin: 08/04/18 10:02 Dose: 100 mg Metoprolol Tartrate (Lopressor) 25 mg PO BRKDIN [facility] Last Admin: 08/04/18 10:01 Dose: 25 mg Quetiapine Fumarate (Seroquel) 100 mg PO HS [facility]; Protocol Last Admin: 08/03/18 21:21 Dose: 100 mg Quetiapine Fumarate (Seroquel) 100 mg PO DAILY [facility]; Protocol Last Admin: 08/04/18 10:01 Dose: 100 mg Vitamin B Complex/Vit C/Folic Acid (Nephro-Falguni) 1 tab PO 0800 [facility] Last Admin: 08/04/18 09:59 Dose: 1 tab Zaleplon (Sonata) 5 mg PO HS PRN PRN Reason: Insomnia Last Admin: 08/03/18 21:22 Dose: 5 mg Ziprasidone (Geodon Cap) 20 mg PO Q6H PRN; Protocol PRN Reason: Agitation Ziprasidone (Geodon Inj) 20 mg IM Q6H PRN; Protocol PRN Reason: Severe Agitation - Labs Labs: 08/01/18 06:10 08/01/18 06:10 - Constitutional Appears: Well, Non-toxic, No Acute Distress - Head Exam Head Exam: ATRAUMATIC, NORMOCEPHALIC - Extremities Exam Additional comments: Left LE focused exam VASC: DP and PT 2/4, cap refill <3 seconds to all digits; temp gradient warm to cool from proximal to distal. Mild non-pitting edema noted to the dorsum of the foot. NEURO: Protective sensation diminished. DERM: Mild ecchymosis noted on the dorsum of the toes 1 to 5 on the left foot, improving. Mild ecchymosis noted on the medial side of the left foot, improving. I&D incision site looks clean, dry and intact with no drainage or erythema, Almost healed. MSKL: No pain to palpation of the dorsum left foot, Muscle power 5/5 of the left foot to all groups. - Neurological Exam Neurological Exam: Alert, Awake Assessment and Plan - Assessment and Plan (Free Text) Assessment: 77 year old female patient seen and evaluated at the psych unit for pain, swelling and ecchymosis of the left foot Plan: Patient seen and evaluated at the bedside. Plan discussed with Dr. Church Charts, labs and vitals reviewed: Afebrile, No leukocytosis X-ray left foot: Joint space narrowing at the 1st MPJ Arterial doppler reviewed: Normal SHAMA and PVR at rest b/l. Surgical shoes to be applied to both feet while ambulating Mepilex applied to the left foot I&D site. Podiatry will continue to follow up the patient while in house.
--- NOTE | 2018-08-04 13:22 | PCM.PYCHPN ---
Psychiatric Progress Note - Psychiatric Progress Note Patient seen today, length of contact: 30 minutes Patient Chief Complaint: "I feel much better, I want to go home, I do want to be placed in the shelter, I am able to take care of myself." Problems Identified/Issues Discussed: Medications, discharge plan, after care plan, safety plan. Medical Problems: See HPI. The patient complaining of foot pain, medical team involved, podiatry team involved, PT involved. Diagnostic Results: Lab Results 07/24/18 07:45: RPR Nonreactive 07/24/18 07:45: TSH 3rd Generation 0.19 L 07/24/18 07:45: Fasting Glucose 100, Triglycerides 165 H, Cholesterol 180, LDL Cholesterol Direct 109, HDL Cholesterol 34 Vital Signs Temp Pulse Resp BP Pulse Ox 07/27/18 16:00 69 154/83 H 07/27/18 08:47 69 133/74 07/27/18 08:46 69 133/74 07/27/18 07:00 97.9 F 69 17 133/74 07/26/18 07:00 98.4 F 73 18 113/76 07/25/18 16:00 59 L 122/67 07/25/18 07:37 99.2 F 70 20 86/53 L 07/24/18 16:14 65 115/70 07/24/18 07:10 98.2 F 81 20 104/61 07/23/18 17:17 69 150/80 07/23/18 16:00 69 150/80 07/23/18 12:23 98.8 F 67 18 141/76 100 Temp Pulse Resp BP Pulse Ox 97.4 F L 69 20 135/69 100 07/30/18 07:16 07/30/18 09:55 07/30/18 07:16 07/30/18 09:55 07/23/18 12:23 Temp Pulse Resp BP Pulse Ox 98.2 F 68 18 139/76 100 08/04/18 07:00 08/04/18 10:01 08/04/18 07:00 08/04/18 10:01 07/23/18 12:23 DSM 5 Symptoms Update: Shortly, patient is a 77-year-old female, but not known previous psychiatric history, patient had history of delirium, patient initially was admitted to the medical side for evaluation of altered mental status, looking for her parents and sister who have been for a while, on the medical side patient was treated for hypertension, delirium, overall patient improved, but patient presented to be disorganized, paranoid, was insisting that her family is alive, was saying that her mother is waiting for her to come back home, patient reported that she had conflict with her sister, patient was not safe to be discharged back home, required further hospitalization to the psychiatric inpatient unit. Patient was able to sign consent for treatment into the psychiatric inpatient unit because patient recognized that she had hallucinations and delusions. Patient agreed to take medications, patient required further observation/stabilization/med management. Patient was seen today at the treatment team meeting room, patient presented better to compare with yesterday, patient was more alert, oriented, patient reported that she slept well, patient does not appear to be confused, health science writer and protective services social worker discussed the option of shelter placement, patient said that she does not want to go to shelter, patient reported that she was able to do grocery shopping as well as a cook for herself as well as clean her apartment. Patient reported that she has savings and she will consider to hire private home health aide in order to help her out with cooking and cleaning. Patient agreed to be referred to [place] [facility]. pt was seen by PT, recommended PT home, discussed with PMD. Patient also was seen by podiatry team, which will be following patient in the community. overall patient presents much better compared with admission. So far patient is compliant with medications, no side effects observed or reported, aims 0, no EPS. No agitation, no aggression. Diagnostic Results: Psychosis NOS Rule out major depressive disorder severe with psychosis Rule out dementia Delirium is improving Medication Change: No Medical Record Reviewed: Yes Consults ordered or reviewed: Medical consult appreciated, please see notes for more detailed information Podiatry consult appreciated PT eval recommend home therapy Mental Status Examination - Cognitive Function Orientation: Person, Place, Situation Attention: Poor (Improvement) Concentration: Poor (Improvement) Association: WNL (Better) Fund of Knowledge: WNL - Mood Mood: Depressed ("I guess I am getting better"), Anxious (Denied) - Affect Affect: Constricted ( more reactive, mood congruent) - Speech Speech: Soft - Formal Thought Process Formal Thought Process: Delusions (Denied), Paranoia (Denied) - Suicidal Ideation Suicidal Ideation: No - Homicidal Ideation Homicidal Ideation: No Goal/Treatment Plan - Goal/Treatment Plan Need for Continued Stay: Remain at risks for inpatient hospitalization, Severe depression anxiety, Discharge may exacerbated symptoms, Severe functional impairment Progress Toward Problem(s) and Goals/Treatment Plan: Milieu/structure/supportive therapy SW consultation for discharge plan and social issues Med management: Lexapro 20 mg daily for depression as well as anxiety Seroquel 100 mg daily and 100 mg at the nighttime for psychosis and mood stabilization sonata 5mg hs as needed for insomnia Family involvement Follow up on labs Will monitor closely Pt was educated about risk/benefits and alternatives of medications, coping strategies (safety plan, suicide prevention), relapse prevention, importance of follow up with psychiatrist and therapist, stay away from drugs/alcohol/smoking After the patient's psychosis will be cleared, plan is to call neurology for dementia assessment podiatry recommended IV antibiotics, medical team started po abx PT eval with home services Patient presents much better today, patient does agree to be referred to shelter,pt agreed to be referred to [facility] Estimated Date of D/C: 08/05/18
[2018-08-04] MEDS: Bacitracin Ointment 30 GM TUBE TOP SCH (17:45)
--- NOTE | 2018-08-05 01:01 | PN ---
DATE: 08/04/2018 SUBJECTIVE: The patient was seen this Friday on 5B. She is resting comfortably in her room. She is apparently walking well with her stocking feet. She does not like or want to use the surgical slippers that were provided, but has no further pain or symptoms in the feet. The swelling and erythema have almost completely resolved. The I and D site has healed nicely. Her blood pressure is being well controlled with her current medication regimen. The patient denies hallucinations. IMPRESSION: 1. Hypertension controlled. 2. Ecchymosis of the foot, resolving. 3. No evidence of urinary tract infection with Gram-positive contaminant to urine culture. PLAN: We will discuss further with Psychiatry regarding discharge planning as there is concern about her level of function at home and ambulation. Fahad Bautista MD
[2018-08-05 07:17] VITALS: BP 114/64; PULSE 62; RESP 20; TEMP 97.7
[2018-08-05] MEDS: Bacitracin Ointment 30 GM TUBE TOP SCH (09:25)
[2018-08-05] MEDS: Multivitamin Vitamin B Complex (Nephro-Vite) Tab PO SCH (09:26)
--- NOTE | 2018-08-05 15:48 | PCM.PYCHDC ---
Mental Status Examination - Mental Status Examination Orientation: Person, Place, Situation, Time Memory: Intact Mood: Neutral Affect: Constricted Speech: Appropriate (Underproductive) Attention: Poor (But much improved) Concentration: Poor (But much improved) Association: WNL Fund of Knowledge: WNL Formal Thought Process: Other ([place] thought process, times patient appears to be confused, but overall much better) Description of patient's judgement and insight: Improved insight into her mental illness and medical issues, fair judgment. Psychotic Thoughts and Behaviors: Patient denied visual, auditory, tactile hallucinations, denied paranoid ideations, patient presented much better, does not appear to be psychotic. Suicidal Ideation: No Current Homicidal Ideation?: No Plan: Patient adamantly denied thoughts of harming herself or others. Discharge Summary - Discharge Note Reason for Hospitalization: Patient was transferred from the medical side for evaluation and stabilization of psychotic symptoms, disorganized thoughts and behavior. Psychiatric History (includes Medical, Family, Personal Hx): see HPI Laboratory Data: 08/01/18 06:10 08/01/18 06:10 Lab Results 08/01/18 06:10: Sodium 139, Potassium 4.4, Chloride 107, Carbon Dioxide 25, Anion Gap 12, BUN 24 H, Creatinine 1.0, Est GFR ( Amer) > 60, Est GFR (Non-Af Amer) 54, Random Glucose 93, Calcium 9.0 08/01/18 06:10: WBC 6.1 D, RBC 3.94, Hgb 10.5 L D, Hct 34.6 L, MCV 87.8, MCH 26.6, MCHC 30.3 L, RDW 15.2 H, Plt Count 293, MPV 9.6, Neut % (Auto) 53.1, Lymph % (Auto) 31.4, [place] % (Auto) 11.3 H, Eos % (Auto) 3.9, Baso % (Auto) 0.3, Lymph # (Auto) 1.9, [place] # (Auto) 0.7 H, Eos # (Auto) 0.2, Baso # (Auto) 0.02, Absolute Neuts (auto) 3.23 07/28/18 18:20: WBC 10.3 D, RBC 4.69, Hgb 12.7, Hct 41.6, MCV 88.7, MCH 27.1, MCHC 30.5 L, RDW 15.6 H, Plt Count 405, MPV 9.5, Neut % (Auto) 64.8, Lymph % ( Auto) 24.1, [place] % (Auto) 9.1 H, Eos % (Auto) 1.8, Baso % (Auto) 0.2, Lymph # (Auto) 2.5, [place] # (Auto) 0.9 H, Eos # (Auto) 0.2, Baso # (Auto) 0.02, Absolute Neuts (auto) 6.66 H 07/27/18 19:40: Urine Color Yellow, Urine Appearance Clear, Urine pH 6.0, Ur Specific Olin 1.020, Urine Protein Negative, Urine Glucose (UA) Negative, Urine Ketones 15 H, Urine Blood Trace-intact H, Urine Nitrate Negative, Urine Bilirubin Negative, Urine Urobilinogen 0.2, Ur Leukocyte Esterase Negative, Urine RBC 0 - 2, Urine WBC None, Ur Epithelial Cells 0 - 2 07/24/18 07:45: RPR Nonreactive 07/24/18 07:45: TSH 3rd Generation 0.19 L 07/24/18 07:45: Fasting Glucose 100, Triglycerides 165 H, Cholesterol 180, LDL Cholesterol Direct 109, HDL Cholesterol 34 08/01/18 06:10 08/01/18 06:10 Lab Results 08/01/18 06:10: Sodium 139, Potassium 4.4, Chloride 107, Carbon Dioxide 25, Anion Gap 12, BUN 24 H, Creatinine 1.0, Est GFR ( Amer) > 60, Est GFR (Non-Af Amer) 54, Random Glucose 93, Calcium 9.0 08/01/18 06:10: WBC 6.1 D, RBC 3.94, Hgb 10.5 L D, Hct 34.6 L, MCV 87.8, MCH 26.6, MCHC 30.3 L, RDW 15.2 H, Plt Count 293, MPV 9.6, Neut % (Auto) 53.1, Lymph % (Auto) 31.4, [place] % (Auto) 11.3 H, Eos % (Auto) 3.9, Baso % (Auto) 0.3, Lymph # (Auto) 1.9, [place] # (Auto) 0.7 H, Eos # (Auto) 0.2, Baso # (Auto) 0.02, Absolute Neuts (auto) 3.23 07/28/18 18:20: WBC 10.3 D, RBC 4.69, Hgb 12.7, Hct 41.6, MCV 88.7, MCH 27.1, MCHC 30.5 L, RDW 15.6 H, Plt Count 405, MPV 9.5, Neut % (Auto) 64.8, Lymph % (Auto) 24.1, [place] % (Auto) 9.1 H, Eos % (Auto) 1.8, Baso % (Auto) 0.2, Lymph # (Auto) 2.5, [place] # (Auto) 0.9 H, Eos # (Auto) 0.2, Baso # (Auto) 0.02, Absolute Neuts (auto) 6.66 H 07/27/18 19:40: Urine Color Yellow, Urine Appearance Clear, Urine pH 6.0, Ur Specific Olin 1.020, Urine Protein Negative, Urine Glucose (UA) Negative, Urine Ketones 15 H, Urine Blood Trace-intact H, Urine Nitrate Negative, Urine Bilirubin Negative, Urine Urobilinogen 0.2, Ur Leukocyte Esterase Negative, Urine RBC 0 - 2, Urine WBC None, Ur Epithelial Cells 0 - 2 07/24/18 07:45: RPR Nonreactive 07/24/18 07:45: TSH 3rd Generation 0.19 L 07/24/18 07:45: Fasting Glucose 100, Triglycerides 165 H, Cholesterol 180, LDL Cholesterol Direct 109, HDL Cholesterol 34 Vital Signs Temp Pulse Resp BP Pulse Ox 08/05/18 09:27 62 114/64 08/05/18 09:26 62 114/64 08/05/18 07:16 97.7 F 62 20 114/64 08/04/18 17:47 69 135/76 08/04/18 16:00 53 L 97/57 L 08/04/18 10:01 68 139/76 08/04/18 09:59 68 139/76 08/04/18 07:00 98.2 F 68 18 139/76 08/03/18 17:28 70 118/79 08/03/18 16:00 70 118/79 08/03/18 09:02 74 122/73 08/03/18 08:58 74 122/73 08/03/18 07:25 97.1 F L 74 20 122/73 08/02/18 17:09 63 115/63 08/02/18 16:29 63 115/63 08/02/18 08:50 69 121/73 08/02/18 08:49 69 121/73 08/02/18 07:16 97.9 F 69 20 121/73 08/02/18 07:02 97.9 F 69 20 120/73 08/01/18 17:15 73 129/76 08/01/18 17:13 73 18 129/76 08/01/18 15:55 50 L 08/01/18 09:19 66 116/73 08/01/18 07:00 97.7 F 66 17 116/73 07/31/18 17:42 70 132/68 07/31/18 16:00 70 132/68 07/31/18 09:51 69 121/71 07/31/18 07:31 97.7 F 69 20 121/71 07/30/18 19:16 72 90/60 L 07/30/18 16:00 64 95/59 L 07/30/18 09:55 69 135/69 07/30/18 09:54 69 135/69 07/30/18 07:16 97.4 F L 69 20 135/69 07/29/18 17:32 100 H 172/72 H 07/29/18 16:00 100 H 172/72 H 07/29/18 09:32 83 90/53 L 07/29/18 09:30 83 90/53 L 07/29/18 07:20 98.0 F 71 20 95/58 L 07/28/18 17:40 62 134/69 07/28/18 16:00 62 134/69 07/28/18 10:09 64 101/64 07/28/18 10:08 64 101/64 07/28/18 07:26 98.4 F 64 20 101/64 07/27/18 16:59 69 154/83 H 07/27/18 16:00 69 154/83 H 07/27/18 08:47 69 133/74 07/27/18 08:46 69 133/74 07/27/18 07:00 97.9 F 69 17 133/74 07/26/18 07:00 98.4 F 73 18 113/76 07/25/18 16:00 59 L 122/67 07/25/18 07:37 99.2 F 70 20 86/53 L 07/24/18 16:14 65 115/70 07/24/18 07:10 98.2 F 81 20 104/61 07/23/18 17:17 69 150/80 07/23/18 16:00 69 150/80 07/23/18 12:23 98.8 F 67 18 141/76 100 Consultations:: List each consultation separately and include: 1. Reason for request. 2. Findings. 3. Follow-up Consultations: Medical consult appreciated, please see notes for more detailed information Podiatry consult appreciated PT eval recommend home therapy Summary of Hospital Course include:: 1. Description of specific treatment plan utilized for patients during their course of treatmen. 2. Summarize the time-course for resolution of acute symptoms and/or regressed behaviors. 3. Describe issues identified and worked on during hospitalization. 4. Describe medication utilized. 5. Describe medical problems identified and treated. 6. Reassessment of suicide risk Summary of Hospital Course: Shortly, patient is a 77-year-old female, but not known previous psychiatric history, patient had history of delirium, patient initially was admitted to the medical side for evaluation of altered mental status, looking for her parents and sister who have been for a while, on the medical side patient was treated for hypertension, delirium, overall patient improved, but patient presented to be disorganized, paranoid, was insisting that her family is alive, was saying that her mother is waiting for her to come back home, patient reported that she had conflict with her sister, patient was not safe to be discharged back home, required further hospitalization to the psychiatric inpatient unit. Patient was able to sign consent for treatment into the psychiatric inpatient unit because patient recognized that she had hallucinations and delusions. Patient agreed to take medications, patient required further observation/stabilization/med management. at the time of admission pt presented to be disorganized, patient was mumbling something to her self, patient appears to be guarded, on top of that patient has very bad hearing, this senior copywriter had to ask the same question multiple times and even though patient understood the question times answers were irrelevant to the questions being asked. Patient presented with poor personal hygiene, has long/gaytan/uncombed hair, poor ADLs. Over the course of this hospitalization patient was stabilized on the following medications: Lexapro 20 mg daily for depression and anxiety Seroquel 100 mg at bedtime the morning time for mood as well as psychosis sonata 5 mg at the nighttime as needed for insomnia Patient tolerated medications well, no side effects observed or reported, AIMS 0, no EPS. Patient was seen by PMD Dr. Bautista please see his notes for more detailed information. Discussed with Dr. Bautista today, patient will be seen in the office within 1 week. farm worker and this senior copywriter offered patient to be referred to half-way but patient adamantly that offered, reported that she can manage herself indep endently. Overall patient improved significantly, patient was less confused, not depressed, was calm cooperative, socially appropriate, patient was compliant with medications and unit rules and regulations. At the time of the discharge patient pose no imminent danger to self or others, will be following up at neighborhood clinic here in [facility], information about follow up appointment, time and address provided to the pt, (see SW note for more detailed information). It is a patient responsibility to follow up with outpatient clinic, PMD as well as specialists In case patient will need to obtain results of studies pending at discharge, patient was provided with contact information of Psychiatric Inpatient unit [phone] as well as Medical Record Department [phone], as well as [facility] team [phone]. Patient denies using any drugs, denies smoking, denies alcohol consumption pt was provided with prescriptions (see medication reconciliation form) Pt was educated about safety plan in case of worsening of symptoms or in case of suicidal or homicidal ideation call 911 or go to the nearest ER, also was educated to take meds as prescribed and stay away from drugs, pt verbalized understanding. 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 It is a patient responsibility to follow up with outpatient clinic, PMD as well as specialists In case patient will need to obtain results of studies pending at discharge, patient was provided with contact information of Psychiatric Inpatient unit [phone] as well as Medical Record Department [phone], as well as [facility] team [phone]. Patient denies using any drugs, denies smoking, denies alcohol consumption pt was provided with prescriptions (see medication reconciliation form) Pt was educated about safety plan in case of worsening of symptoms or in case of suicidal or homicidal ideation call 911 or go to the nearest ER, also was educated to take meds as prescribed and stay away from drugs, pt verbalized understanding. Prescriptions/Medication Reconciliation: amLODIPine [Norvasc] 5 mg PO DAILY #7 tab Bacitracin Ointment [Bacitracin] 1 gm TOP DAILY #1 tube Escitalopram [Lexapro] 20 mg PO HS #14 tab Losartan [Cozaar] 100 mg PO DAILY #7 tab Metoprolol Tartrate [Lopressor] 25 mg PO BRKDIN #14 tab QUEtiapine [Seroquel] 100 mg PO AMHS #30 tab Vitamin B Complex/Vit C/Folic [Nephro-Falguni] 1 tab PO 0800 #7 tab Zaleplon [Sonata] 5 mg PO HS PRN #14 cap PRN Reason: Insomnia - Smoking Cessation Smoking Cessation Medication prescribed: No Reason for not providing: Denied smoking - Antipsychotic Medications Pt discharged on 2 or more routine antipsychotic medications: No
== END 2018-08-05 13:38 | disposition home or self-care (01) | DRG 885 ==
LOC: PSYC 12:10
PROVIDERS: ADMIT Psychiatry & Neurology Psychiatry; ATTEND Psychiatry & Neurology Psychiatry
PROC: 0HCNXZZ Extirpation of Matter from Left Foot Skin, External Approach (ICD-10-PCS; principal; 2018-07-29)
DX: F29 Unspecified psychosis not due to a substance or known physiological condition (principal); F05 Delirium due to known physiological condition; L03.116 Cellulitis of left lower limb; S90.32XA Contusion of left foot, initial encounter; F06.30 Mood disorder due to known physiological condition, unspecified; I10 Essential (primary) hypertension; W22.09XA Striking against other stationary object, initial encounter; Y92.009 Unspecified place in unspecified non-institutional (private) residence as the place of occurrence of the external cause; Z86.73 Personal history of transient ischemic attack (TIA), and cerebral infarction without residual deficits; Z87.891 Personal history of nicotine dependence